=== PATIENT | male | born 1985 | race Caucasian/White ===

== ENCOUNTER 2019-12-04 08:55 | Emergency (ER) | payer OTHER ==
[~2019-12-04] VITALS: Ht 182.9 cm; Wt 68.0 kg
[~2019-12-04 08:55] MED LIST: AMOXICILLIN500 MG PO; CIPRO500 MG PO; CLINDAMYCIN HC300 MG PO; NORCO 5-325 TA1 EACH PO; PYRIDIUM100 MG PO; TRAMADOL HCL50 MG PO
--- OUTSIDE RECORDS SUMMARY | 2019-12-04 08:58 | XMS ---
PreManage Notification: SONDRA EMMANUEL Security Polysomnographic Tech Events No recent Security Events currently on file CRITERIA MET - [facility] CARE PROVIDERS There are no care providers on record at this time. Makeda has no Care Guidelines for this patient. Antonia VISIT COUNT (12 MO.) 2 LORNA Abebe TOTAL 2 NOTE: Visits indicate total known visits. ED/UCC VISIT TRACKING (12 MO.) 12/04/2019 08:56 [facility] [place] TYPE: Emergency COMPLAINT: - POSS ABSCESS 02/23/2019 08:[address] [facility] [place] TYPE: Emergency COMPLAINT: - BILATE KIDNEY PAIN DIAGNOSES: - Dysuria - Urinary tract infection, site not specified - Nicotine dependence, unspecified, uncomplicated INPATIENT VISIT TRACKING (12 MO.) No inpatient visits to display in this time frame [email or web address]
[2019-12-04] MEDS ORDERED: BACTRIM DS TAB1 EACH PO (09:14)
== END 2019-12-04 09:22 | disposition home or self-care (01) ==
LOC: ED 08:55
DX: L02.214 Cutaneous abscess of groin (principal); K40.90 Unilateral inguinal hernia, without obstruction or gangrene, not specified as recurrent; F17.200 Nicotine dependence, unspecified, uncomplicated
CPT/HCPCS: 99283

== ENCOUNTER 2019-12-09 09:02 | Emergency (ER) | payer OTHER ==
[~2019-12-09] VITALS: Ht 182.9 cm; Wt 68.0 kg
--- OUTSIDE RECORDS SUMMARY | ~2019-12-09 | XMS | Encounter Summary ---
Demographics + + + | Address | [address] | | | [place] [address] | + + + | Home Phone | | + + + | Preferred Language | Unknown | + + + | Marital Status | Single | + + + | Religion Affiliation | PRO | + + + | Race | White | + + + | Ethnic Group | Not or | + + + Author + + + | Author | [facility] | + + + | Organization | [facility] | + + + | Address | Unknown | + + + | Phone | Unavailable | + + + Support + + + + + | Name | Relationship | Address | Phone | + + + + + | Candice Recio | FINN | [address] | | | | | [address], [place] | | | | | [address] | | + + + + + | Sergio Almita | FINN | [address] | | | | [address] [place] | | | | | [address] | | + + + + + Care Team Providers + +------+ + | Care Mophead Trimmer And Wrapper Name | Role | Phone | + +------+ + | Floyd Mcgee MD | PCP | | + +------+ + Encounter Details +--------+ + + + + | Date | Type | Department | Care Team | Description | +--------+ + + + + | 12/28/ | Results | [facility] [address] | Tahir Piedra, | | | 2005 | Only | Floor [address] | [place] | | | | | Mailcode: [facility] | | | | | | [facility] [place], [place] | | | | | | [address] | | | | | | [phone] | | | +--------+ + + + + Social History + +-------+ +--------+------+ | Tobacco Use | Types | Packs/Day | Years | Date | | | | | Used | | + +-------+ +--------+------+ | Never Assessed | | | | | + +-------+ +--------+------+ + + + | Sex Assigned at | Date Recorded | | | | + + + | Not on file | | + + + + + + + | Job Start Date | Occupation | Industry | + + + + | Not on file | Not on file | Not on file | + + + + + + + + | Travel History | Travel Start | Travel End | + + + + + + | No recent travel history available. | + + documented as of this encounter Plan of Treatment + +------+--------+ + + | Name | Type | Priori | Associated Diagnoses | Date/Time | | | | ty | | | + +------+--------+ + + | TTE OUTREACH-PEDS | ECG | Routin | | 12/28/2005 4:13 PM | | (RESERVED FOR | | e | | PDT | | OUTREACH SERVICES | | | | | | ONLY) | | | | | + +------+--------+ + + documented as of this encounter Visit Diagnoses Not on filedocumented in this encounter"
--- OUTSIDE RECORDS SUMMARY | ~2019-12-09 | XMS | Encounter Summary ---
Demographics + + + | Address | [address] | | | [place] [address] | + + + | Home Phone | | + + + | Preferred Language | Unknown | + + + | Marital Status | Single | + + + | Gnosticist Affiliation | PRO | + + + | Race | White | + + + | Ethnic Group | Not or | + + + Author + + + | Author | [facility] | + + + | Organization | [facility] | + + + | Address | Unknown | + + + | Phone | Unavailable | + + + Support + + + + + | Name | Relationship | Address | Phone | + + + + + | Candice Recio | FINN | [address] | | | | | [address], [place] | | | | | [address] | | + + + + + | Sergio Almita | FINN | [address] | | | | [address] | | | | | [address] | | + + + + + Care Team Providers + +------+ + | Care Farmworker Cranberry Name | Role | Phone | + +------+ + | Floyd Mcgee MD | PCP | | + +------+ + Encounter Details +--------+ + + + + | Date | Type | Department | Care Team | Description | +--------+ + + + + | 05/20/ | Test Bore Helper | Pediatric | Tahir Piedra, | Congenital Stenosis | | 2006 | | Cardiology at | MD | of Aortic Valve | | | | [place] [address] | | (Primary Dx) | | | | [facility] | | | | | | Pediatric | | | | | | [facility] | | | | | | [place], [place] | | | | | | [address] | | | | | | [phone] | | | +--------+ + + + [...] | | + +------+--------+ + + | TRANSTHORACIC | ECG | Routin | Congenital | 05/27/2007 8:56 AM | | ECHOCARDIOGRAM, PEDS | | e | Stenosis of Aortic | PDT | | | | | Valve | | + +------+--------+ + + documented as of this encounter Visit Diagnoses + + | Diagnosis | + + | Congenital stenosis of aortic valve - Primary | + + documented in this encounter"
--- OUTSIDE RECORDS SUMMARY | ~2019-12-09 | XMS | Encounter Summary ---
Demographics + + + | Address | [address] | | | [place] [address] | + + + | Home Phone | | + + + | Preferred Language | Unknown | + + + | Marital Status | Single | + + + | Lutheran Affiliation | PRO | + + + | Race | White | + + + | Ethnic Group | Not or | + + + Author + + + | Author | [facility] | + + + | Organization | [facility] | + + + | Address | Unknown | + + + | Phone | Unavailable | + + + Support + + + + + | Name | Relationship | Address | Phone | + + + + + | Candice Recio | FINN | [address] | | | | | [address], [place] | | | | | [address] | | + + + + + | Sergio Almita | FINN | [address] | | | | [address] [place] | | | | | [address] | | + + + + + Care Team Providers + +------+ + | Care Special Events Director Name | Role | Phone | + +------+ + | Floyd Mcgee MD | PCP | | + +------+ + Encounter Details +--------+ + + + + | Date | Type | Department | Care Team | Description | +--------+ + + + + | 03/07/ | Office | [facility] | Note, Outpatient | Progress Note | | 1997 | Visit-Trans | MEDICINE | Clinic | | | | cribed | | | | +--------+ + + + [...] + + documented as of this encounter Progress Notes Interface, Handcrew Foreman In - 08/31/2006 3:06 AM PST CLINIC DATE: 03/07/98 [facility] SUBJECTIVE: Tyron is a 12-year-old with aortic stenosis, whom we are seeing after an interval of six months. He is doing quite well at this point in time, and has no cardiovascular symptoms or signs. He is somewhat hyperactive, and takes Ritalin for Attention Deficit Disorder. OBJECTIVE: GENERAL APPEARANCE: On physical examination today, he is alert and in no distress. MEASUREMENTS: He weighs 62.5 pounds, and he is 53 inches tall. VITAL SIGNS: His blood pressure is 97/62, the heart rate 76 per minute, and his arterial saturation by pulse oximeter on room air is 100%. NECK: There is no neck vein distention. CHEST: The chest is clear to auscultation. CARDIOVASCULAR: Palpation of the precordium reveals no overactivity nor thrill. He does have a thrill in the supramanubrial notch. Cardiac auscultation reveals a systolic ejection click, followed by a systolic ejection murmur heard at the third left interspace and into the aortic area. No diastolic murmur is heard. The heart sounds are normal; the second heart sound is normally-split. ABDOMEN: The abdominal examination is negative, without hepatosplenomegaly. No masses or tenderness are palpated. EXTREMITIES: He has good pulses in both upper and lower extremities. These pulses are synchronous and of equal amplitude. No edema is noted. LABORATORY DATA: An echocardiogram was done, and showed similar findings to that of his previous echo. There is a slight increase in the velocity across the aortic valve from the notch view. The gradient previously was 2.5 meters per second and now is three meters per second, which would be calculated to be approximately a 10-millimeter difference from previously, with the pressure gradient now being approximately 35. ASSESSMENT: At this point in time, I would still continue to follow Tyron conservatively. I would not restrict his activities. He should have prophylactic antibiotics when he is at risk of bacteremia to prevent bacterial endocarditis. PLAN: We will plan to see him again in one year's time for follow-up. Tahir Piedra M.D. Professor, Pediatric Cardiology SOFI/yohan cc: ANA CRISTINA COATS MD [address] [place] [address] documented in this encounter Plan of Treatment Not on filedocumented as of this encounter Visit Diagnoses Not on filedocumented in this encounter"
--- OUTSIDE RECORDS SUMMARY | ~2019-12-09 | XMS | Encounter Summary ---
Demographics + + + | Address | [address] | | | [place] [address] | + + + | Home Phone | | + + + | Preferred Language | Unknown | + + + | Marital Status | Single | + + + | Latter Day Affiliation | PRO | + + + | Race | White | + + + | Ethnic Group | Not or | + + + Author + + + | Author | [facility] | + + + | Organization | [facility] | + + + | Address | Unknown | + + + | Phone | Unavailable | + + + Support + + + + + | Name | Relationship | Address | Phone | + + + + + | Cadnice Recio | FINN | [address] | | | | | [address], [place] | | | | | [address] | | + + + + + | Sergio Almita | FINN | [address] | | | | [address] | | | | | [address] | | + + + + + Care Team Providers + +------+ + | Care Machinist Job Setter Name | Role | Phone | + +------+ + | Floyd Rodriguez MD | PCP | | + +------+ + Encounter Details +--------+ + + + + | Date | Type | Department | Care Team | Description | +--------+ + + + + | 06/10/ | Office | General Internal | Note, Outpatient | Progress Note | | 1994 | Visit-Trans | Medicine 3245 | Clinic | | | | mike | Leticia [facility] | | | | | | Mailcode: [id number] | | | | | | Outpatient Clinic | | | | | | [facility], [address] | | | | | | [place], [place] | | | | | | [address] | | | | | | [phone] | | | +--------+ + + + [...] as of this encounter Progress Notes Interface, Brand Analyst In - 11/24/2006 6:25 AM PDT CLINIC DATE: 06/10/95 CLINIC SITE: [place] Ackerman is now almost [age]. We have been following him with the diagnosis mild aortic valve stenosis. When he last had his echocardiogram in 1991, there was only a mild gradient across this of approximately 2.5 m/sec by Doppler flow. In the interim since we saw him, he has continued to get along well and has no cardiac symptoms or signs. On examination, he is alert and in no distress. He weighs 50 pounds and is 47.75 inches tall. Palpation of the precordium reveals no overactivity. There is a faint thrill palpable in the supramanubrial notch. He has good pulses in both upper and lower extremities. On auscultation, he has a systolic ejection click followed by a systolic ejection murmur of Grade II-III intensity. Heart sounds are normally split. There is no accentuation of the pulmonary component. No diastolic murmur is heard. I did not appreciate an S3 or S4. In view of the fact he has not had an echo for three years, I thought it would be appropriate to reassess the measured gradient by Doppler across his valve. I am pleased that there has been no change in this Doppler gradient. It remains at 2.5 m/sec. Under the circumstance, I feel that we can continue to follow Tyron at relatively infrequent intervals and asked to see him again in two years' time. No special precautions are necessary relating to his activity. He should have prophylactic antibiotics when at risk of bacteremia, to prevent bacterial endocarditis. The parents specifically asked about Ritalin and I see no contraindication to use of Ritalin if that is deemed appropriate for his hyperactivity. Tahir Piedra M.D. Professor of Pediatrics Division of Pediatric Cardiology ABISAI/fabiano A cc: ELMIRA RODRIGUEZ MD documented in this encounter Plan of Treatment Not on filedocumented as of this encounter Visit Diagnoses Not on filedocumented in this encounter"
--- OUTSIDE RECORDS SUMMARY | ~2019-12-09 | XMS | Encounter Summary ---
Demographics + + + | Address | [address] | | | [place] [address] | + + + | Home Phone | | + + + | Preferred Language | Unknown | + + + | Marital Status | Single | + + + | Episcopalian Affiliation | PRO | + + + | Race | White | + + + | Ethnic Group | Not or | + + + Author + + + | Author | [facility] | + + + | Organization | [facility] | + + + | Address | Unknown | + + + | Phone | Unavailable | + + + Support + + + + + | Name | Relationship | Address | Phone | + + + + + | Candice Recio | FINN | [address] | | | | | [address], [place] | | | | | [address] | | + + + + + | Sergio Almita | FINN | [address] | | | | [address] | | | | | [address] | | + + + + + Care Team Providers + +------+ + | Care Hospitality Manager Name | Role | Phone | + +------+ + | Latricia Rodriguez MD | PCP | | + +------+ + Encounter Details +--------+ + + + + | Date | Type | Department | Care Team | Description | +--------+ + + + + | 06/09/ | Office | [facility] | Note, Wild Cardio | Progress Note | | 2001 | Visit-Trans | CARDIOLOGY | Clinic | | | | cribed [...] as of this encounter Progress Notes Interface, Supervisor Polishing In - 03/21/2006 3:10 AM PDTCLINIC DATE: 06/09/2002 [facility] SUBJECTIVE: Tyron is now 16. He is followed with the diagnosis of bicuspid aortic valve with aortic stenosis. He has had no cardiac symptoms or signs since we saw him last. Currently, he is on no medications, he no longer takes Ritalin, and the mother feels that, though he has some bad days, his good days are better. OBJECTIVE: On examination today, he is alert, in no distress, without cyanosis. He weighs 113-1/4 lb; he is 65-3/4-inches tall. Blood pressure is 113/70; heart rate is 67 per minute and regular; his arterial saturation by pulse oximeter at room air is 100%. Palpation of the precordium reveals no overactivity nor thrill. There is a faint thrill palpable in the supramanubrial notch. No chest wall deformity is noted. The abdominal examination is negative, without hepatosplenomegaly, masses, or tenderness. He has good pulses in both upper and lower extremities; these pulses are synchronous and of equal amplitude. No edema is noted. No neck vein distention is noted. Venous pressure is estimated to be at about 6 cm of water. The lungs are clear to auscultation. Cardiac auscultation reveals a systolic ejection click, followed by a systolic murmur. No diastolic murmur is heard. No S3 or S4 is heard. The second sounds are normally split and move normally with respiration. An echocardiogram was done and showed no significant change, and his Doppler gradient across the aortic valve was 3.5 m/sec today, and his aortic root dimension at the sinuses is 34 mm. IMPRESSION: I discussed with Tyron and his mother the need to be aware of factors that can reduce coronary artery disease in view of his aortic valve disease, stressing principally no smoking, a lower fat diet, and regular exercise. We will plan to see Tyron in one year for followup. I did not restrict his activities at this time. I recommend that he have prophylactic antibiotics when he is at risk of bacteremia. Tahir Piedra M.D. Professor, Pediatric Cardiology ABISAI/sweetie R: 06/12/2002 cc: LATRICIA RODRIGUEZ MD [address] [facility] [address] [place] [id number] signed by Interface, Supervisor Polishing In at 03/21/2006 3:10 AM PDTdocumented in this encounter Plan of Treatment Not on filedocumented as of this encounter Visit Diagnoses Not on filedocumented in this encounter"
--- OUTSIDE RECORDS SUMMARY | ~2019-12-09 | XMS | Encounter Summary ---
Demographics + + + | Address | [address] | | | [place] [address] | + + + | Home Phone | | + + + | Preferred Language | Unknown | + + + | Marital Status | Single | + + + | Anglican Affiliation | PRO | + + + | Race | White | + + + | Ethnic Group | Not or | + + + Author + + + | Author | [facility] | + + + | Organization | [facility] | + + + | Address | Unknown | + + + | Phone | Unavailable | + + + Support + + + + + | Name | Relationship | Address | Phone | + + + + + | Canidce Recio | FINN | [address] | | | | | [address], [place] | | | | | [address] | | + + + + + | Sergio Almita | FINN | [address] | | | | [address] | | | | | [address] | | + + + + + Care Team Providers + +------+ + | Care Manufacturing Design Engineer Name | Role | Phone | + +------+ + | Latricia Rodriguez MD | PCP | | + +------+ + Encounter Details +--------+ + + + + | Date | Type | Department | Care Team | Description | +--------+ + + + + | 03/06/ | Office | [facility] | Note, Outpatient | Progress Note | | 1998 | Visit-Trans | MEDICINE | Clinic | [...] as of this encounter Progress Notes Interface, Grassland Conservationist In - 07/31/2006 5:02 AM PSTCLINIC DATE: 03/06/1999 [facility] SUBJECTIVE: Tyron is a boy who we have been following with diagnosis of mild aortic valve stenosis. He was last seen a year ago and in the interim has continued to do well. He does take Ritalin for attention deficit disorder and was not too happy about being here today and was rather reticent. OBJECTIVE: He is alert and in no acute distress. He weighs 68 pounds, he is 55 " tall, blood pressure is 106/64, heart rate is 95 per minute and regular. His arterial saturation by pulse oximeter on room air is 100%. Palpation of his precordium reveals no overactivity or thrill. There is a faint thrill in his supramanubrial notch. ABDOMEN: Negative without hepatosplenomegaly, masses or tenderness. He has good pulses in both upper and lower extremities The pulses are synchronous and equal amplitude. No edema is noted, no neck vein distention is noted. LUNGS: Clear to auscultation and percussion. CARDIAC: Cardiac auscultation reveals a systolic ejection click by a grade III systolic ejection murmur. The second sound I thought was single. An echocardiogram was done and essentially showed no change from previous echos with a gradient of 2.5 meters per second or approximately a gradient of 30 mercury. With these findings, I felt we should continue to follow him conservatively and defer any therapeutic procedures. He should have prophylactic antibiotics when he is at risk of bacteremia, reduce the risk of bacterial endocarditis. The only activity that I would restrict him from would be competitive vigorous sports. Certainly golf or tennis might be appropriate for him. At this point, this is not his bent so did not restrict any of his other activities. Tahir Piedra M.D. SOFI/guille cc: LATRICIA RODRIGUEZ MD [address] [facility] [id number] signed by Interface, Grassland Conservationist In at 07/31/2006 5 :02 AM PSTdocumented in this encounter Plan of Treatment Not on filedocumented as of this encounter Visit Diagnoses Not on filedocumented in this encounter
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
--- OUTSIDE RECORDS SUMMARY | ~2019-12-09 | XMS | Encounter Summary ---
Demographics + + + | Address | [address] | | | [place] [address] | + + + | Home Phone | | + + + | Preferred Language | Unknown | + + + | Marital Status | Single | + + + | Hindu Affiliation | PRO | + + + | Race | White | + + + | Ethnic Group | Not or | + + + Author + + + | Author | [facility] | + + + | Organization | [facility] | + + + | Address | Unknown | + + + | Phone | Unavailable | + + + Support + + + + + | Name | Relationship | Address | Phone | + + + + + | Candice Recio | FINN | [address] | | | | | [address], [place] | | | | | [address] | | + + + + + | Sergio Almita | FINN | [address] | | | | [address] | | | | | [address] | | + + + + + Care Team Providers + +------+ + | Care Financial Service Representative Name | Role | Phone | + +------+ + | Floyd Mcgee MD | PCP | | + +------+ + Encounter Details +--------+ + + + + | Date | Type | Department | Care Team | Description | +--------+ + + + + | 05/25/ | Procedure - | UNKNOWN DEPARTMENT | Other, Faculty | ECHO (MAGI or TTE) | | 2002 | | [address] [facility] | [phone] | | | | Transcribed | Domingo Becca | | | | | | [place], [place] | | | | | | [address] | | | +--------+ + + + [...] documented as of this encounter Progress Notes Other, Faculty - 05/25/2003 12:00 AM PDTAssociated Order(s): TRANSTHORACIC ECHOCARDIOGRAM, ADULT [facility] DATE: 05/25/03 [place], [place] MED REC NO: [id number] NAME: TYRON RECIO ECHOCARDIOGRAPHY REPORT BIRTHDATE: [birth year] INDICATION FOR STUDY: AORTIC VALVE STENOSIS UNIT: [place] STUDY NO: [id number] TAPE NO. DIGITAL REQUEST BY: MAKEDA FRASER BP: TECH: CM HT: 172.00 CM WT: 60.30 M-MODE:MM 2-D MEASUREMENT LVID (D)47.0 (S)25.0 %FS 46 LA 37.0 IVS (D)11.5 AO 30.0 LVPW (D) 9.0 AO SALENA 22.0 AO SIN 28.0 AO ASC 28.0 DOPPLER:M/S PW CW MMHG PW CW MMHG LVIT 1.20 RVOT 0.70 LVOT 1.30 MPA 0.80 ASAO AP 2.80 TR 2.70 ASAO SSN 3.70 ASAO RPS 2.60 DSAO 2.00 COLOR FLOW 2D & DOPPLER INTERPRETATION 1. STUDY DONE IN [place] ON 05/25/03 AND READ AT [facility] ON 05/28/03. 2. BICUSPID AORTIC VALVE WITH MODERATE STENOSIS AND MILD REGURGITATION. 3. LEFT VENTRICULAR SIZE NORMAL. HYPERDYNAMIC FRACTIONAL SHORTENING. 4. PHYSIOLOGIC TRICUSPID REGURGITATION. GENESIS GUNDERSON M.D. documented in this encou nter Plan of Treatment Not on filedocumented as of this encounter Procedures + +--------+ + + + | Procedure Name | Priori | Date/Time | Associated Diagnosis | Comments | | | ty | | | | + +--------+ + + + | TRANSTHORACIC | | 05/25/2003 | | Results for this | | ECHOCARDIOGRAM, | | 12:00 AM | | procedure are in the | | ADULT | | PDT | | results section. | + +--------+ + + + documented in this encounter Results TRANSTHORACIC ECHOCARDIOGRAM, ADULT (05/25/2003 12:00 AM PDT) + + | Procedure Note | + + | Other, Faculty - 05/25/2003 12:00 AM [facility] DATE: | | 05/25/03 [place], [place] MED REC NO: [id number] NAME: TYRON RECIO | | ECHOCARDIOGRAPHY REPORT BIRTHDATE: [birth year] INDICATION FOR STUDY: AORTIC VALVE STENOSIS | | UNIT: [place] STUDY NO: [id number] TAPE NO. DIGITAL REQUEST BY: MAKEDA FRASER BP: | | TECH: CM HT: 172.00 CM WT: 60.30 | | M-MODE:MM | | 2-D MEASUREMENT | | LVID (D)47.0 | | (S)25.0 %FS 46 LA 37.0 IVS (D)11.5 AO 30.0 LVPW (D) 9.0 AO SALENA 22.0 AO SIN 28.0 AO ASC | | 28.0 | | DOPPLER:M/S PW CW MMHG PW CW MMHG | | LVIT 1.20 | | RVOT 0.70 LVOT 1.30 MPA 0.80 ASAO AP 2.80 TR 2.70 ASAO SSN 3.70 ASAO RPS 2.60 DSAO | | 2.00 COLOR | | FLOW 2D & DOPPLER INTERPRETATION | | 1. STUDY | | DONE IN [place] ON 05/25/03 AND READ AT [facility] ON 05/28/03. 2. BICUSPID AORTIC VALVE | | WITH MODERATE STENOSIS AND MILD REGURGITATION. 3. LEFT VENTRICULAR SIZE NORMAL. | | HYPERDYNAMIC FRACTIONAL SHORTENING. 4. PHYSIOLOGIC TRICUSPID REGURGITATION. | | GENESIS GUNDERSON M.D. | | | | DOPPLER:M/S PW CW MMHG PW CW MMHG | | | | LVIT 1.20 | | RVOT 0.70 | | LVOT 1.30 | | MPA 0.80 ASAO AP 2.80 | | TR 2.70 ASAO SSN 3.70 | | ASAO RPS 2.60 | | DSAO 2.00 | | | | COLOR FLOW 2D & DOPPLER INTERPRETATION | | | | 1. STUDY DONE IN [place] ON 05/25/03 AND READ AT [facility] ON | | 05/28/03. | | | | 2. BICUSPID AORTIC VALVE WITH MODERATE STENOSIS AND MILD | | REGURGITATION. | | | | 3. LEFT VENTRICULAR SIZE NORMAL. HYPERDYNAMIC FRACTIONAL | | SHORTENING. | | | | 4. PHYSIOLOGIC TRICUSPID REGURGITATION. | | | | | | | | GENESIS GUNDERSON M.D. | | | | | | | + + documented in this encounter Visit Diagnoses Not on filedocumented in this encounter"
--- OUTSIDE RECORDS SUMMARY | ~2019-12-09 | XMS | Encounter Summary ---
Demographics + + + | Address | [address] | | | [place] [address] | + + + | Home Phone | | + + + | Preferred Language | Unknown | + + + | Marital Status | Single | + + + | Rastafari Affiliation | PRO | + + + | Race | White | + + + | Ethnic Group | Not or | + + + Author + + + | Author | [facility] | + + + | Organization | [facility] | + + + | Address | Unknown | + + + | Phone | Unavailable | + + + Support + + + + + | Name | Relationship | Address | Phone | + + + + + | Candice Recio | FINN | [address] | | | | | [address], [place] | | | | | [address] | | + + + + + | Sergio Almita | ECON | [address] | | | | [address], [place] | | | | | [address] | | + + + + + Care Team Providers + +------+ + | Care It Help Desk Technician Name | Role | Phone | [...] | MD | | | | | [place] [address] | | | | | | [address] | | | | | | Pediatric | | | | | | [facility] | | | | | | [place], [place] | | | | | | [address] | | | | | | [phone] | | | +--------+ + + + [...]
--- OUTSIDE RECORDS SUMMARY | ~2019-12-09 | XMS | Encounter Summary ---
Demographics + + + | Address | [address] | | | [place] [address] | + + + | Home Phone | | + + + | Preferred Language | Unknown | + + + | Marital Status | Single | + + + | Quaker Affiliation | PRO | + + + | Race | White | + + + | Ethnic Group | Not or | + + + Author + + + | Author | [facility] | + + + | Organization | [facility] | + + + | Address | Unknown | + + + | Phone | Unavailable | + + + Support + + + + + | Name | Relationship | Address | Phone | + + + + + | Candice Recio | FINN | [address] | | | | | [address], [place] | | | | | [address] | | + + + + + | Sergio Almita | FINN | [address] | | | | [address] | | | | | [address] | | + + + + + Care Team Providers + +------+ + | Care Book Cutter Name | Role | Phone | + +------+ + | Floyd Mcgee MD | PCP | | + +------+ + Encounter Details +--------+---------+ + + + | Date | Type | Department | Care Team | Description | +--------+---------+ + + + | 05/09/ | Office | Neurosurgery [address] | Jean Carlos Payne MD | Concussion (Primary | | 2007 | Visit | [address] | | Dx) | | | | Physician's | | | | | | [address], [address] floor | | | | | | [place], [place] | | | | | | [address] | | | | | | [phone] | | | +--------+---------+ + + + [...] + + + | Blood Pressure | - | - | | + + + + + | Pulse | - | - | | + + + + + | Temperature | - | - | | + + + + + | Respiratory Rate | - | - | | + + + + + | Oxygen Saturation | - | - | | + + + + + | Inhaled Oxygen | - | - | | | Concentration | | | | + + + + + | Weight | 56.7 kg (125 lb) | 05/09/2008 12:12 PM | | | | | PDT | | + + + + + | Height | - | - | | + + + + + | Body Mass Index | 17.43 | 06/02/2007 2:18 PM | | | | | PDT | | + + + + + documented in this encounter Progress Notes Jean Carlos Payne - 05/09/2008 2:49 PM PDT I saw and evaluated the patient. I agree with the findings and the plan of care as lu maier in the resident s note. Encounter Diagnoses Code Name Primary? 850.9H Concussion Yes Jean Carlos Payne MD Physician & Surgeon Department of Neurological Surgery [facility] & [address], [address] [address] Pager: [phone] Sheela Estrada, Roly Arreola - 05/09 1:12 PM Saeid Recio returns to clinic for follow up after a traumatic fracture of his frontal sinus and pneumocephalus. He states that he continues to have headaches and se nsitivity to bright lights and loud noises. He denies any rhinorrhea or otorhea. He has ratliff d once epsiode of nausea/vomiting. PE: Dulled affect Speech normal O x 3 No rhinorrhea with valsalva, no otorhea Moderate swelling at left brow Tender to touch no erythema Neck supple and nontender topalpation, FROM A/P: Post concussive syndrome. No CSF leak, No evidence for meningitis. Patient was ins tructed to follow up in 6 weeks. His symptoms should improve pver time. If he develops high fevers, neck rigidity, worsening N/V he should follow up sooner. He was instructed to coord inate pain mamagement through his primary care physician. A one-time prescription for oxyco done was written. Patient had an audiogram done today which he should follow up with an ENT specialist. Sarika ented in this encounter Plan of Treatment Not on filedocumented as of this encounter Visit Diagnoses + + | Diagnosis | + + | Concussion - Primary Concussion, unspecified | + + documented in this encounter"
--- OUTSIDE RECORDS SUMMARY | ~2019-12-09 | XMS | Clinical Summary ---
Demographics + + + | Address | [address] | | | [place] [address] | + + + | Home Phone [...] Author + + + | Author | [facility] | + + + | Organization | [facility] | + + + | Address | Unknown | + + + | Phone | Unavailable | + + + Support + + + + + | Name | Relationship | Address | Phone | + + + + + | Candice Recio | ECON | [address] | | | | [address], [place] | | | | | [address] | | + + + + + | Sergio Recio | ECON | [address] + | | | | [address], [place] | | | | | [address] | | + + + + + Care Team Providers + +------+ + | Care Nail Professional Name | Role | Phone | + +------+ + | Floyd Mcgee MD | PCP | | + +------+ + Source Comments [facility] is fully live on both [facility] and [facility] In[facility] Allergies + + + + + + | Active Allergy | Reactions | Severity | Noted | Comments | | | | | Date | | + + + + + + | No Known Drug | | | 04/26/20 | | | Allergies | | | 08 | | + + + + + + Medications + + + +---------+------+------+-------+ | Medication | Sig | Dispensed | Refills | Star | End | Statu | | | | | | t | Date | s | | | | | | Date | | | + + + +---------+------+------+-------+ | TEGRETOL ORAL | None Entered | | 0 | | | Activ | | | | | | | | e | + + + +---------+------+------+-------+ | duloxetine | Take 30 mg by mouth | | 0 | | | Activ | | (CYMBALTA) 30 mg | once daily. Take one | | | | | e | | Oral Capsule, | tablet by mouth one | | | | | | | Delayed | time daily | | | | | | | Release(E.C.) | | | | | | | + + + +---------+------+------+-------+ | valacyclovir | Take 1000 mg by | | 0 | | | Activ | | (VALTREX) 500 mg | mouth two times | | | | | e | | Oral Tablet | daily. Two tablets | | | | | | | | twice daily | | | | | | + + + +---------+------+------+-------+ Active Problems + + + | Problem | Noted Date | + + + | Congenital insufficiency of aortic valve | 05/27/2007 | + + + | Congenital stenosis of aortic valve | 05/20/2007 | + + + Social History + +-------+ [...] recent travel history available. | + + Last Filed Vital Signs + + + + + | Vital Sign | Reading | Time Taken | Comments | + + + + + | Blood Pressure | 155/81 | 04/27/2008 11:47 AM | | | | | PDT | | + + + + + | Pulse | 74 | 04/27/2008 11:47 AM | | | | | PDT | | + + + + + | Temperature | 37.2 C (99 F) | 04/27/2008 11:47 AM | | | | | PDT | | + + + + + | Respiratory Rate | 12 | 04/27/2008 11:47 AM | | | | | PDT | | + + + + + | Oxygen Saturation | 100% | 04/27/2008 11:47 AM | | | | | PDT | [...] | | + + + + + Plan of Treatment + + + + + | Health Maintenance | Due Date | Last Done | Comments | + + + + + | Influenza (Flu) | | | | | vaccination (#1) | 9 | | | + + + + + | Pneumococcal | Aged Out | | No longer eligible | | vaccination | | | based on patient's | | | | | age to complete this | | | | | topic | + + + + + Results Not on filefrom Last 3 Months Advance Directives + + + + + | Type | Date Recorded | Patient | Explanation | | | | Retail Advisor | | + + + + + | Advance | | | | | Directives and | | | | | Living Will | | | | + + + + + | Power of | | | | | Child Care Director | | | | + + + + + + + + + + | Code Status | Date | Date | Comments | | | Activated | Inactivated | | + + + + + | Full Code | 04/26/2008 | 04/27/2008 | | | | 3:03 AM | 6:55 PM | | + + + + +
--- OUTSIDE RECORDS SUMMARY | ~2019-12-09 | XMS | Encounter Summary ---
Demographics + + + | Address | [address] | | | [place] [address] | + + + | Home Phone | | + + + | Preferred Language | Unknown | + + + | Marital Status | Single | + + + | Oriental Orthodox Affiliation | PRO | + + + [...] [address], [place] | | | | | [address] | | + + + + + | Sergio Almita | FINN | [address] | | | | [address] | | | | | [address] | | + + + + + Care Team Providers + +------+ + | Care Sausage Cutter Name | Role | Phone | + +------+ + | Floyd Mcgee MD | PCP | | + +------+ + Encounter Details +--------+ + + + + | Date | Type | Department | Care Team | Description | +--------+ + + + + | 03/31/ | Results | [facility] | [place], | | | 2005 | Only | Floor [address] | [place] | | | | | Mailcode: [facility] | | | | | | [facility] [place], [place] | | | | | | [address] | | | | | | [phone] | | | +--------+ + + + [...] | + +------+--------+ + + | TTE (TRANSTHORACIC | ECG | Routin | | 03/31/2006 1:36 PM | | ECHO)-PEDS | | e | | PDT | + +------+--------+ + + | TTE OUTREACH-PEDS | ECG | Routin | | 04/02/2006 8:17 AM | | (RESERVED FOR | | e | | PDT | | OUTREACH SERVICES | | | | | | ONLY) | | | | | + +------+--------+ + + | TTE (TRANSTHORACIC | ECG | Routin | | 05/25/2006 11:17 AM | | ECHO)-PEDS | | e | | PDT | + +------+--------+ + + documented as of this encounter Visit Diagnoses Not on filedocumented in this encounter"
--- OUTSIDE RECORDS SUMMARY | ~2019-12-09 | XMS | Encounter Summary ---
Demographics + + + | Address | [address] | | | [place] [address] | + + + | Home Phone [...] + + + | Author | [facility] | + + + | Organization | [facility] | + + + | Address | Unknown | + + + | Phone | Unavailable | + + + Support + + + + + | Name | Relationship | Address | Phone | + + + + + | Candice Recio | FINN | [address] | | | | | [address], [place] | | | | | [address] | | + + + + + | Sergio Ajvictor m | FINN | [address] | | | | [address] | | | | | [address] | | + + + + + Care Team Providers + +------+ + | Care Signing Teacher Name | Role | Phone | [...] Floor | | 2007 | Visit | [place]/Ophthalmol | | (Blow-Out), Closed | | | | ogy at [facility] [address] | | Fracture (Primary | | | | [address] [facility] | | Dx) | | | | Health and Healing | | | | | | Building | | | | | | Floor [place], [place] | | | | | | [address] | | | | | | [phone] | | | +--------+---------+ + + + [...] year old male No occupation listed. from [place] : Patient presents with: Eye examination - [...] another 1-2 months that he see local lead designer for refraction and checkup. Dale Miner MD, 05/17/2008 documented in this enco unter Plan of Treatment Not on filedocumented as of this encounter Visit Diagnoses + + | Diagnosis | + + | Orbital floor (blow-out), closed fracture - Primary | + + documented in this encounter"
--- OUTSIDE RECORDS SUMMARY | ~2019-12-09 | XMS | Encounter Summary ---
Demographics + + + | Address | [address] | | | [place] [address] | + + + | Home Phone | | + + + | Preferred Language | Unknown | + + + | Marital Status | Single | + + + | Sabianism Affiliation | PRO | + + + | Race | White | + + + | Ethnic Group | Not or | + + + Author + + + | Organization | Unknown | + + + | Address | Unknown | + + + | Phone | Unavailable | + + + Support + + + + + | Name | Relationship | Address | Phone | + + + + + | Candice Recio | ECON | [address] | | | | [address], [place] | | | | | [address] | | + + + + + | Sergio Recio | ECON | [address] | | | | [address], [place] | | | | | [address] | | + + + + + Care Team Providers + +------+ + | Care Medical Concierge Name | Role | Phone | + +------+ + | Floyd Mcgee MD | PCP | | + +------+ + Encounter Details +--------+ + + + + | Date | Type | Department | Care Team | Description | +--------+ + + + + | 12/08/ | Procedure - | | Treadmill, Routine | Treadmill | | 2000 | | | | | | | Transcribed | | | | +--------+ + + [...]
--- OUTSIDE RECORDS SUMMARY | ~2019-12-09 | XMS | Encounter Summary ---
Demographics + + + | Address | [address] | | | [place] [address] | + + + | Home Phone | | + + + | Preferred Language | Unknown | + + + | Marital Status | Single | + + + | Roman Catholic Affiliation | PRO | + + + | Race | White | + + + | Ethnic Group | Not or | + + + Author + + + | Author | [facility] | + + + | Organization | [facility] | + + + | Address | Unknown | + + + | Phone | Unavailable | + + + Support + + + + + | Name | Relationship | Address | Phone | + + + + + | Candice Recio | FINN | [address] | | | | | [address], [place] | | | | | [address] | | + + + + + | Sergio Almita | FNIN | [address] | | | | [address] | | | | | [address] | | + + + + + Care Team Providers + +------+ + | Care Utilization Management Nurse Name | Role | Phone | + +------+ + | Floyd Mcgee MD | PCP | | + +------+ + Encounter Details +--------+ + + + + | Date | Type | Department | Care Team | Description | +--------+ + + + + | 06/09/ | Procedure - | UNKNOWN DEPARTMENT | Other, Faculty | ECHO (MAGI or TTE) | | 2001 | | [address] [facility] | [phone] | | | | Transcribed | [address] | | | | | | [place], [place] | | | | | | [address] | | | +--------+ + + + [...] this encounter Progress Notes Other, Faculty - 06/09/2002 12:00 AM PDTAssociated Order(s): TRANSTHORACIC ECHOCARDIOGRAM, ADULT [facility] DATE: 06/09/02 [place] MED REC NO: [id number] NAME: DIPAKMarcellusTYRON ECHOCARDIOGRAPHY REPORT BIRTHDATE: [birth year] INDICATION FOR STUDY: AORTIC STENOSIS UNIT: [place] STUDY NO: [id number] TAPE NO. [id number] REQUEST BY: MAKEDA FRASER FRAME NO. [id number]:[id number] TECH: CM M-MODE:MM 2-D MEASUREMENT LVID (D)50.5 (S)26.0 %FS 48 LA 30.0 IVS (D) 9.0 AO 28.0 LVPW (D) 6.5 AO SALENA 22.5 AO SIN 26.0 AO ASC 35.0 DOPPLER:M/S PW CW MMHG PW CW MMHG RVIT 0.60 LVIT 1.20 RVOT 1.00 LVOT 1.00 MPA 1.00 ASAO AP 2.50 TR 2.20 ASAO SSN 3.40 DSAO 1.50 COLOR FLOW 2D & DOPPLER INTERPRETATION PORTABLE ROAD STUDY. 1. BICUSPID AORTIC VALVE. 2. MILD TO MODERATE AORTIC STENOSIS; MILD AORTIC INSUFFICIENCY. 3. MILD LEFT VENTRICULAR ENLARGEMENT WITH HYPERDYNAMIC SYSTOLIC FUNCTION. EVERTON LEROY MD documented in this encou nter Plan of Treatment Not on filedocumented as of this encounter Procedures + +--------+ + + + | Procedure Name | Priori | Date/Time | Associated Diagnosis | Comments | | | ty | | | | + +--------+ + + + | TRANSTHORACIC | | 06/09/2002 | | Results for this | | ECHOCARDIOGRAM, | | 12:00 AM | | procedure are in the | | ADULT | | PDT | | results section. | + +--------+ + + + documented in this encounter Results TRANSTHORACIC ECHOCARDIOGRAM, ADULT (06/09/2002 12:00 AM PDT) + + | Procedure Note | + + | Other, Faculty - 06/09/2002 12:00 AM PDT [facility] DATE: | | 06/09/02 [place] MED REC NO: [id number] NAME: TYRON RECIO | | ECHOCARDIOGRAPHY REPORT BIRTHDATE: [birth year] INDICATION FOR STUDY: AORTIC STENOSIS | | UNIT: [place] STUDY NO: [id number] TAPE NO. [id number] REQUEST BY: MAKEDA FRASER FRAME NO. | | [id number] TECH: CM | | M-MODE:MM | | 2-D MEASUREMENT | | LVID (D)50.5 | | (S)26.0 %FS 48 LA 30.0 IVS (D) 9.0 AO 28.0 LVPW (D) 6.5 AO SALENA 22.5 AO SIN 26.0 AO ASC | | 35.0 | | DOPPLER:M/S PW CW MMHG PW CW MMHG | | RVIT 0.60 | | LVIT 1.20 RVOT 1.00 LVOT 1.00 MPA 1.00 ASAO AP 2.50 TR 2.20 ASAO SSN 3.40 DSAO 1.50 | | COLOR FLOW | | 2D & DOPPLER INTERPRETATION | | PORTABLE | | ROAD STUDY. 1. BICUSPID AORTIC VALVE. 2. MILD TO MODERATE AORTIC STENOSIS; MILD AORTIC | | INSUFFICIENCY. 3. MILD LEFT VENTRICULAR ENLARGEMENT WITH HYPERDYNAMIC SYSTOLIC | | FUNCTION. EVERTON LEROY MD | | AO SALENA 22.5 AO SIN 26.0 AO ASC 35.0 | | | | DOPPLER:M/S PW CW MMHG PW CW MMHG | | | | RVIT 0.60 LVIT 1.20 | | RVOT 1.00 | | LVOT 1.00 | | MPA 1.00 ASAO AP 2.50 | | TR 2.20 ASAO SSN 3.40 | | DSAO 1.50 | | | | COLOR FLOW 2D & DOPPLER INTERPRETATION | | | | PORTABLE ROAD STUDY. | | 1. BICUSPID AORTIC VALVE. | | | | 2. MILD TO MODERATE AORTIC STENOSIS; MILD AORTIC INSUFFICIENCY. | | | | 3. MILD LEFT VENTRICULAR ENLARGEMENT WITH HYPERDYNAMIC SYSTOLIC | | FUNCTION. | | | | | | | | EVERTON LEROY MD | | | | | | | + + documented in this encounter Visit Diagnoses Not on filedocumented in this encounter"
--- OUTSIDE RECORDS SUMMARY | ~2019-12-09 | XMS | Clinical Summary ---
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
--- OUTSIDE RECORDS SUMMARY | ~2019-12-09 | XMS | Encounter Summary ---
Demographics + + + | Address | [address] | | | [place] [address] | + + + | Home Phone | | + + + | Preferred Language | Unknown | + + + | Marital Status | Single | + + + | Synagogue Affiliation | PRO | + + + | Race | White | + + + | Ethnic Group | Not or | + + + Author + + + | Author | [facility] | + + + | Organization | [facility] | + + + | Address | Unknown | + + + | Phone | Unavailable | + + + Support + + + + + | Name | Relationship | Address | Phone | + + + + + | Candice Recio | FINN | [address] | | | | | [address], [place] | | | | | [address] | | + + + + + | Sergio Almita | FINN | [address] | | | | [address] | | | | | [address] | | + + + + + Care Team Providers + +------+ + | Care Fashion Styling Intern Name | Role | Phone | + [...] [id number] | | | | | | [place], [place] | | | | | | [address] | | | | | | [phone] | | | +--------+ + + + [...]
--- OUTSIDE RECORDS SUMMARY | ~2019-12-09 | XMS | Encounter Summary ---
Demographics + + + | Address | [address] | | | [place] [address] | + + + | Home Phone [...] Author + + + | Author | [facility] | + + + | Organization | [facility] | + + + | Address | Unknown | + + + | Phone | Unavailable | + + + Support + + + + + | Name | Relationship | Address | Phone | + + + + + | Candice Recio | FINN | [address] | | | | | [address], [place] | | | | | [address] | | + + + + + | Sergio Almita | FINN | [address] | | | | [address] | | | | | [address] | | + + + + + Care Team Providers + +------+ + | Care Account Support Analyst Name | Role | Phone | + +------+ + | Floyd Mcgee MD | PCP | | + +------+ + Encounter Details +--------+ + + + + | Date | Type | Department | Care Team | Description | +--------+ + + + + | 12/12/ | Ancillary | Registration [id number] | Tah[address]iedra, | | | 2004 | Registratio | [address] | | | | | kameron | Austyn Mailcode: [id number] | | | | | | [place], [place] | | | | | | [address] | | | | | | [phone] | | | +--------+ + + + [...]
--- OUTSIDE RECORDS SUMMARY | ~2019-12-09 | XMS | Encounter Summary ---
Demographics + + + | Address | [address] | | | [place] [address] | + + + | Home Phone | | + + + | Preferred Language | Unknown | + + + | Marital Status | Single | + + + | Zoroastrian Affiliation | PRO | + + + | Race | White | + + + | Ethnic Group | Not or | + + + Author + + + | Author | [facility] | + + + | Organization | [facility] | + + + | Address | Unknown | + + + | Phone | Unavailable | + + + Support + + + + + | Name | Relationship | Address | Phone | + + + + + | Candice Recio | FINN | [address] | | | | | [address], [place] | | | | | [address] | | + + + + + | Sergio Almita | FINN | [address] | | | | [address] | | | | | [address] | | + + + + + Care Team Providers + +------+ + | Care Dance Artist Name | Role | Phone | + [...] as of this encounter Progress Notes Interface, Hydraulic Oil Tool Operator In - 03/21/2006 3:10 AM PDTCLINIC DATE: 06/09/2002 [facility] SUBJECTIVE: Tyron is [...] R: 06/12/2002 cc: LATRICIA RODRIGUEZ MD [address] [facility] [address] [place] [id number] signed by Interface, Hydraulic Oil Tool Operator In at 03/21/2006 3:10 AM PDTdocumented in this encounter Plan of Treatment Not on filedocumented as of this encounter Visit Diagnoses Not on filedocumented in this encounter"
--- OUTSIDE RECORDS SUMMARY | ~2019-12-09 | XMS | Encounter Summary ---
Demographics + + + | Address | [address] | | | [place] [address] | + + + | Home Phone | | + + + | Preferred Language | Unknown | + + + | Marital Status | Single | + + + | Worship Affiliation | PRO | + + + [...] [address], [place] | | | | | [address] | | + + + + + | Sergio Almita | FINN | [address] | | | | [address] | | | | | [address] | | + + + + + Care Team Providers + +------+ + | Care Ocean Freight Forwarder Name | Role | Phone | + [...] | MD | | | | | [place] [address] | | | | | | [address] | | | | | | Pediatric | | | | | | [facility]s | | | | | | [place], [place] | | | | | | [address] | | | | | | [phone] | | | +--------+ + + + [...]
--- OUTSIDE RECORDS SUMMARY | ~2019-12-09 | XMS | Encounter Summary ---
Demographics + + + | Address | [address] | | | [place] [address] | + + + | Home Phone [...] + + + | Author | [facility] | + + + | Organization | [facility] | + + + | Address | Unknown | + + + | Phone | Unavailable | + + + Support + + + + + | Name | Relationship | Address | Phone | + + + + + | Candice Recio | FINN | [address] | | | | | [address], [place] | | | | | [address] | | + + + + + | Sergio Almita | FINN | [address] | | | | [address] | | | | | [address] | | + + + + + Care Team Providers + +------+ + | Care Ncaa Compliance Internship Name | Role | Phone | + +------+ + | Floyd Mcgee MD | PCP | | + +------+ + Encounter Details +--------+ + + + + | Date | Type | Department | Care Team | Description | +--------+ + + + + | 03/31/ | Results | [facility] | Tahir Piedra, | | | 2005 | Only | Floor [address] | [place] | | | | | Mailcode: [facility] | | | | | | [facility] [place], [place] | | | | | | [address] | | | | | | [phone] | | | +--------+ + + + [...]
--- OUTSIDE RECORDS SUMMARY | ~2019-12-09 | XMS | Encounter Summary ---
Demographics + + + | Address | [address] | | | [place] [address] | + + + | Home Phone | | + + + | Preferred Language | Unknown | + + + | Marital Status | Single | + + + | Nondenominational Affiliation | PRO | + + + [...] [address], [place] | | | | | [address] | | + + + + + | Sergio Almita | FINN | [address] | | | | [address] | | | | | [address] | | + + + + + Care Team Providers + +------+ + | Care Corporate Director Talent Assessment Name | Role | Phone | + +------+ + | Floyd Rodriguez MD | PCP | | + +------+ + Encounter Details +--------+ + + + + | Date | Type | Department | Care Team | Description | +--------+ + + + + | 12/16/ | Transcribed | Allergy Clinic at | Dictation, Other | Transcribed | | 1995 | | [facility] [address] | | | | | | [address] | | | | | | [address] | | | | | | [facility], 7th floor | | | | | | [place], [place] | | | | | | [address] | | | | | | [phone] | | | +--------+ + + + [...] as of this encounter Progress Notes Interface, Bone Glue Maker In - 11/12/2006 3:11 AM PDT [address], [address] [address] [phone] [facility] Ped[facility] December 17, 1995 SHERRIE RODRIGUEZ MD [address] [place] [address] [address] [place] [address] RE:Tyron Recio MR#:[id number] : [id number] Dear Doctor Rodriguez: I have no problems with your prescribing Imipramine for Tyron. His cardiac abnormality is minor, so for most purposes he can be treated as if he has no cardiac problem. Thanks for taking time to ask. Very truly yours, Tahir Piedra M.D. Professor of Pediatrics Division of Pediatric Cardiology ABISAI/fabiano cc: documented in this encounter Plan of Treatment Not on filedocumented as of this encounter Visit Diagnoses Not on filedocumented in this encounter"
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
--- OUTSIDE RECORDS SUMMARY | ~2019-12-09 | XMS | Encounter Summary ---
Demographics + + + | Address | [address] | | | [place] [address] | + + + | Home Phone [...] [address], [place] | | | | | [address] | | + + + + + | Sergio Almita | FINN | [address] | | | | [address] | | | | | [address] | | + + + + + Care Team Providers + +------+ + | Care Tube Worker Name | Role | Phone | + [...] as of this encounter Progress Notes Interface, Proration Clerk In - 01/28/2006 3:07 AM PDTClinic Date: 05/25/2003 PEDIATRIC CARDIOLOGY Clinic Site: [facility] Tyron is a [...] Professor of Pediatrics Division of Pediatric Cardiology [facility] ABISAI/josseline A [id number] cc: Floyd Mcgee M.D. [address] [facility] 10 [place], [place] [email or web address] signed by Interface, Proration Clerk In at 01/28/2006 3:0 7 AM PDTdocumented in this encounter Plan of Treatment Not on filedocumented as of this encounter Visit Diagnoses Not on filedocumented in this encounter"
--- OUTSIDE RECORDS SUMMARY | ~2019-12-09 | XMS | Encounter Summary ---
Demographics + + + | Address | [address] | | | [place] [address] | + + + | Home Phone [...] Author + + + | Author | [facility] | + + + | Organization | [facility] | + + + | Address | Unknown | + + + | Phone | Unavailable | + + + Support + + + + + | Name | Relationship | Address | Phone | + + + + + | Candice Recio | FINN | [address] | | | | | [address], [place] | | | | | [address] | | + + + + + | Sergio Almita | FINN | [address] | | | | [address] | | | | | [address] | | + + + + + Care Team Providers + +------+ + | Care Insurance Administrative Assistant Name | Role | Phone | + +------+ + | Floyd Mcgee MD | PCP | | + +------+ + Encounter Details +--------+ + + + + | Date | Type | Department | Care Team | Description | +--------+ + + + + | 12/28/ | Results | [facility] | Tahir Piedra, | | | 2005 | Only | Floor [address] | [place] | | | | | Mailcode: [facility] | | | | | | [facility] [place], [place] | | | | | | [address] | | | | | | [phone] | | | +--------+ + + + [...]
--- OUTSIDE RECORDS SUMMARY | ~2019-12-09 | XMS | Clinical Summary ---
Demographics + + + | Address | [address] | | | [place] [address] | + + + | Home Phone | | + + + | Preferred Language | Unknown | + + + | Marital Status | Single | + + + | Temple Affiliation | Unknown | + + + | Race | Unknown | + + + | Ethnic Group | Unknown | + + + Author + + + | Author | [facility] | | | [facility] [place] | + + + | Organization | [facility] | | | [facility] [place] | + + + | Address | Unknown | + + + | Phone | Unavailable | + + + Support + + +---------+ + | Name | Relationship | Address | Phone | + + +---------+ + | Candice Recio | ECON | Unknown | | + + +---------+ + Care Team Providers + +------+ + | Care Tire Building Supervisor Name | Role | Phone | + +------+ + | Tomas Marino MD | PCP | | + +------+ + Allergies Not on File Medications Not on file Active Problems Not on file Social History + +-------+ +--------+------+ | Tobacco [...] | + + Last Filed Vital Signs Not on file Plan of Treatment +--------+---------+ + + + | Date | Type | Specialty | Care Team | Description | +--------+---------+ + + + | 12/11/ | Office | Cardiology | Ever Carbajal, | | | 2019 | Visit | | [address] | | | | | | [place], | | | | | | [place] [address] | | | | | | [phone] | | | | | | | | +--------+---------+ + + + + + + + + | Health Maintenance | Due Date | Last Done | Comments | + + + + + | Vaccine: | | | | | Dtap/Tdap/Td (1 - | 8 | | | | Tdap) | | | | + + + + + | Vaccine: Influenza | | | | | (Season Ended) | 0 | | | + + + + + Results Not on filefrom Last 3 Months Insurance + +--------+ +--------+ +---------+--------+ | Payer | Benefi | Subscriber | Effect | Phone | Address | Type | | | t Plan | ID | cornelius | | | | | | / | | Dates | | | | | | Group | | | | | | + +--------+ +--------+ +---------+--------+ | [employer] | [employer] | [id number] | 02/14/20 | [phone] | | Medica | | MEDICAID HMO | HEALTH | | 14-Pre | 1 | | id | | | MDCD | | sent | | | | | | [place] | | | | | | + +--------+ +--------+ +---------+--------+ + +--------+ +--------+ + + | Guarantor Name | Accoun | Relation to | Date | Phone | Billing Address | | | t Type | Patient | of | | | | | | | | | | + +--------+ +--------+ + + | Tyron Recio E | Person | Self [birth year] | [address] | | | al/Fam | | 1985 | [phone] | [address] [place], | | | [place] | | | [address] (Home) | [place] [address] | + +--------+ +--------+ + + Advance Directives + + + + + | Type | Date Recorded | Patient | Explanation | | | | Owner Professional Engineer | | + + + + + | Power of | | | | | Gas Meter Installer | | | | + + + + + | Advance | | | | | Directive | | | | + + + + +"
--- OUTSIDE RECORDS SUMMARY | ~2019-12-09 | XMS | Encounter Summary ---
Demographics + + + | Address | [address] | | | [place] [address] | + + + | Home Phone [...] [address], [place] | | | | | [address] | | + + + + + | Sergio Recio | ECON | [address] | | | | [address], [place] | | | | | [address] | | + + + + + Care Team Providers + +------+ + | Care Warehouse Supervisor 3Rd Shift Name | Role | Phone | + +------+ + PCP | Unavailable | + +------+ + Encounter Details +--------+ + + + + | Date | Type | Department | Care Team | Description | +--------+ + + + + | 12/12/ | Office | | Note, Outpatient | Progress Note | | 2005 | Visit-Trans | | Clinic | | [...] as of this encounter Progress Notes Interface, Network Support In - 03/15/2005 11:11 AM PDT [id number] [facility]: [facility] Tyron is now almost 19. He is a young man who we have been following with bicuspid aortic valve with mild aortic stenosis and mild to minimal aortic valve regurgitation. In the interim since we saw him last, he has continued to get along well without cardiac symptoms or signs. Physical Examination: General: On examination today, he is no distress. He is alert without cyanosis. Vital Signs: He weighs 134 pounds. He is 69-1/2 inches tall. Respiratory rate was 14 per minute and regular. Blood pressure taken today was 137/81. Heart rate is 65 per minute and regular. Arterial saturation by pulse oximeter room air is 98%. Palpation of precordium reveals no overactivity nor a thrill. There is a faint thrill palpable in the supramanubrial notch. Abdomen: Without hepatosplenomegaly, masses, or tenderness. Extremities: He has good pulses in both upper and lower extremities. No edema is noted. No neck vein distention is noted. Lungs: Clear to auscultation. Cardiac auscultation reveals a systolic ejection click followed by a grade 2 systolic ejection murmur heard best in the second right interspace. I did not hear any diastolic murmurs nor did I hear an S3 or S4. Second heart sound was normally split. Diagnostic: An echocardiogram was done and essentially showed no difference from his previous echo with mild stenosis and mild dilation of his proximal aorta. I spent a good deal of time talking to Tyron relating to the need for him to have continued followup as he would grow older and perhaps leave the area. Also, I talked to him about coronary artery disease risk reduction, low-fat diet, regular exercise, and no smoking. (Currently, he states that he smokes about 2 cigarettes a day.) Plan: I will plan to see Tyron again next year with an echo. He should have prophylactic antibiotics when is at risk of bacteremia to reduce the risk of bacterial endocarditis. I did not restrict his activities at this time. Tahir Piedra M.D. Professor of Pediatrics Division of Pediatric Cardiology [facility] / [id number] / [id number] / [id number] / cc: Floyd Mcgee M.D. [address] [id number] Electronically signed by Tahir Piedra 12-25-2004 07:48:36 AM documented i n this encounter Plan of Treatment Not on filedocumented as of this encounter Visit Diagnoses Not on filedocumented in this encounter"
--- OUTSIDE RECORDS SUMMARY | ~2019-12-09 | XMS | Encounter Summary ---
Demographics + + + | Address | [address] | | | [place] [address] | + + + | Home Phone | | + + + | Preferred Language | Unknown | + + + | Marital Status | Single | + + + | Bahai Affiliation | PRO | + + + [...] [address], [place] | | | | | [address] | | + + + + + | Sergio Almita | FINN | [address] | | | | [address], [place] | | | | | [address] | | + + + + + Care Team Providers + +------+ + | Care Serging Machine Operator Automatic Name | Role | Phone | + [...] | | | | | | Austyn [facility] | | | | | | | [facility] | | | | | | | [place], [place] | | | | | | | [address] | | | | | | | Phone: | | | | | | | [phone] | +--------+--------+ + + + + Encounter Details +--------+ + + + + | Date | Type | Department | Care Team | Description | +--------+ + + + + | 04/26/ | Hospital | [facility] [address] | Rober Stoddard, | | | 2007 - | Encounter | [address] | | | | | | [id number] [facility] | | | | 04/27/ | | [facility], | | | | 2007 | | [place] [address] | | | +--------+ + + + [...] onto con crete while at a rodeo [employer] ETOH on board. Patient reportedly had LOC, unknown how long. He was taken to a hospital in [place] where a L brow lac was repaired [...] - as scheduled. Other: NSG, Opthalmology at [facility] or OSH or clinic, and Fascial [...] He was taken to a hospital in [place] where a L brow lac was repaired [...] - as scheduled. Other: NSG, Opthalmology at [facility] or OS or clinic, and Fascial [...] face down onto concrete while at a [employer] MD on board. Patient reportedly had LOC, unkno wn how long. He was taken to a hospital in [place] where a L brow lac was repaired [...] Ophthalmology, and Fascial Plastics in 2 w [facility]. Call: Trauma clinic or ED at If you have any of the following: flashes, floaters, diplopia Difficulty breathing or unusual shortness of breath Excessive bleeding, drainage at the operative site Fevers, chills, increased pain that is not relieved by pain medications Persistent nausea or vomiting Follow Up Appointments: PCP: Floyd Mcgee MD - as scheduled. Other: NSG, Opthalmology at [facility] or [facility] or clinic, and [...] home in next day or so. Rishabh, [id number] sig juan diego by Gordon Montaño at [...] Min: 97 % Max: 100 % I/O: [id number] Exam: Gen: alert Neuro: following commands, BELLA [...] the resident s note. FÁTIMA HARTLEY MD [facility] 7A TRAUMA ICU [address] [place] [address] Henry Silverman 04/27/20 08 5:37 AM PDT [...] Intake/Output Summary (Last 24 hours) at 04/27 0577 Last data filed at 04/27 0500 Gross [...] hours: No results found for this basename: PH:5,PCO2:5,PO2:5,HCO3:5,FGBBX1BBM:5,P6ZCLQJZ:5,G9VXQMO RC:5,FIO2:5 in the last 72 hours I/Os: [...] the resident s note. FÁTIMA HARTLEY MD [facility] 7A TRAUMA ICU [address] [place] [address] documented in this encoun ter Plan of [...] [facility] | [address] | [place], [place] | | | THERAPY | [address] | [address] | | + + + + + | [facility] | [address] | [place], [place] | | | THERAPY | [address] | [address] | | + + + + + [...] + + + + + | [facility] | [address] | [place] [address] | | | PATHOLOGY | [address] | | | + + + + + | [facility] | [address] | [place] [address] | | | PATHOLOGY | [address] [...] | + + + + + | [facility] DEPARTMENT | [address] [facility] | [place] [address] | | | PATHOLOGY | [address] | | | + + + + + | [facility] | [address] [facility] | [place] [address] | | | PATHOLOGY | [address] [...] [facility] DE[facility] | [address] [facility] | [place] [address] | | | PATHOLOGY | [address] | | | + + + + + | [facility] DEPARTMENT OF | [address] [facility] | [place] [address] | | | PATHOLOGY | [address] [...] | + + + + + | [facility] DEPARTMENT OF | [address] | [place] [address] | | | PATHOLOGY | [address] | | | + + + + + | [facility] DEPARTMENT OF | [address] | [place] [address] | | | PATHOLOGY | [address] [...] view image for the detailed interpretation from [employer] results. | CARDIOLOGY | | | | + + + + + + + + | Performing | Address | City/State/Zipcode | Phone Number | | Organization | | | | + + + + + | [facility] DEPT OF | [address] | [place], [place] | | | CARDIOLOGY | [address] | [address] | | + + + + + | [facility] | [address] | [place], [place] | | | CARDIOLOGY | [address] | [address] | | + + + + + [...] + + + + + | [facility] | [address] | [place] [address] | | | PATHOLOGY | [address] | | | + + + + + | [facility] | [address] | [place] [address] | | | PATHOLOGY | [address] [...] + + + + + | [facility] | [address] | [place] [address] | | | PATHOLOGY | [address] | | | + + + + + | [facility] | [address] | [place] [address] | | | PATHOLOGY | [address] [...] | + + + + + | [facility] DEPARTMENT OF | [address] | [place] [address] | | | PATHOLOGY | [address] | | | + + + + + | [facility] | [address] | [place] [address] | | | PATHOLOGY | [address] [...] + + + + + | [facility] | [facility] | [place] [address] | | | PATHOLOGY | [address] | | | + + + + + | [facility] | [address] [place] [address] | [place] [address] | | | PATHOLOGY | [address] [...] | + + + + + | [facility] DEPARTMENT | [address] [facility] | [place] [address] | | | PATHOLOGY | [address] | | | + + + + + | [facility] | [address] [facility] | [place] [address] | | | PATHOLOGY | [address] [...] DEPARTMENT OF | [address] | [place] [address] | | | PATHOLOGY | [address] | | | + + + + + | [facility] DEPARTMENT | [address] | [place] [address] | | | PATHOLOGY | [address] [...] | + + + + + | [facility] DEPARTMENT OF | [address] [facility] | [place] [address] | | | PATHOLOGY | [address] | | | + + + + + | [facility] DE[facility] OF | [address] [facility] | [place] [address] | | | PATHOLOGY | [address] [...] + + + + + | [facility] | [address] [place] [address] | [place] [address] | | | PATHOLOGY | [address] | | | + + + + + | [facility] DEPARTMENT OF | [facility] | [place] [address] | | | PATHOLOGY | [address] [...] | | | % nasal spray 2 [place] 2 spray, | | 08 9:00 | [...] | | | | | | Starting [facility] 04/26/08 at 0315, | | | [...]
--- OUTSIDE RECORDS SUMMARY | ~2019-12-09 | XMS | Encounter Summary ---
Demographics + + + | Address | [address] | | | [place] [address] | + + + | Home Phone [...] Author + + + | Author | [facility] | + + + | Organization | [facility] | + + + | Address | Unknown | + + + | Phone | Unavailable | + + + Support + + + + + | Name | Relationship | Address | Phone | + + + + + | Candice Recio | FINN | [address] | | | | | [address], [place] | | | | | [address] | | + + + + + | Sergio Almita | FINN | [address] | | | | [address] | | | | | [address] | | + + + + + Care Team Providers + +------+ + | Care First Line Production Supervisor Name | Role | Phone | + +------+ + | Latricia Rodriguez MD | PCP | | + +------+ + Encounter Details +--------+ + + + + | Date | Type | Department | Care Team | Description | +--------+ + + + + | 03/05/ | Office | [facility] | Note, Outpatient | Progress Note | | 1999 | Visit-Trans | MEDICINE | Clinic | [...] as of this encounter Progress Notes Interface, Coil Wrapper In - 07/01/2006 3:09 AM PSTCLINIC DATE: 03/05/2000 [facility] SUBJECTIVE: Tyron Recio is a 14=-year-old who is followed with the diagnosis of aortic valve stenosis. We saw him last a year ago, and in the interim, he has continued to get along well without cardiac symptoms or signs. He takes Ritalin and Tegretol for behavior. OBJECTIVE: On examination today, he is alert, without cyanosis. He weighs 81= pounds. Blood pressure is 108/71. Heart rate is 65 beats per minute. Arterial saturation by pulse oximeter at room air is 100%. Palpation of the precordium reveals no overactivity or thrill. I felt no thrill today in the supramanubrial notch. Abdominal examination was negative. No hepatosplenomegaly or masses were palpable. He has good pulses in all extremities. Upper and lower extremity pulses were synchronous and of equal amplitude. No neck vein distention is noted. No edema is noted. His lungs are clear to auscultation. Cardiac auscultation, as before, shows an ejection click followed by a Grade III/ systolic ejection murmur. The second heart sound moves narrowly. No diastolic murmur is heard. No S3 or S4 is heard. IMPRESSION: Tyron's physical status seems unchanged. We will plan to see him again in one year with an echocardiogram. He should have prophylactic antibiotics when he is at risk of bacteremia to reduce the risk of bacterial endocarditis. There is no need to restrict his activities at this time. However, if he is interested in competing in sports with a team, I would probably advise that he have an exercise test prior to having him do this. Tahir Piedra M.D. Professor, Pediatric Cardiology SOFI/sweetie R: 03/09/2000 cc: LATRICIA RODRIGUEZ MD [address] [facility] [address] [place] [id number] signed by Interface, Coil Wrapper In at 07/01/2006 3:09 AM PSTdocumented in this encounter Plan of Treatment Not on filedocumented as of this encounter Visit Diagnoses Not on filedocumented in this encounter"
--- OUTSIDE RECORDS SUMMARY | ~2019-12-09 | XMS | Encounter Summary ---
Demographics + + + | Address | [address] | | | [place] [address] | + + + | Home Phone [...] [address], [place] | | | | | [address] | | + + + + + | Sergio Almita | FINN | [address] | | | | [address] | | | | | [address] | | + + + + + Care Team Providers + +------+ + | Care Cosmetic Chemist Name | Role | Phone | + [...] [id number] | | | | | | [place], [place] | | | | | | [address] | | | | | | [phone] | | | +--------+ + + + [...]
--- OUTSIDE RECORDS SUMMARY | ~2019-12-09 | XMS | Encounter Summary ---
Demographics + + + | Address | [address] | | | [place] [address] | + + + | Home Phone [...] [address], [place] | | | | | [address] | | + + + + + | Sergio Almita | FINN | [address] | | | | [address] | | | | | [address] | | + + + + + Care Team Providers + +------+ + | Care Director Of Enterprise Architecture Name | Role | Phone | + +------+ + | Floyd Mcgee MD | PCP | | + +------+ + Encounter Details +--------+ + + + + | Date | Type | Department | Care Team | Description | +--------+ + + + + | 05/27/ | Office | UNKNOWN DEPARTMENT | Note, Outpatient | Progress Note | | 2006 | Visit-Trans | [address] [facility] | [facility] | | | | mike | [address] | | | | | | [place], [place] | | | | | | [address] | | | +--------+ + + + [...] as of this encounter Progress Notes Interface, Machine Packager In - 05/31/2007 2:26 AM [facility] [id number] [place] [id number] Clinic Date: 05/27/2007 Clinic: [facility] The patient is a 21-year-old young man who is here and being followed for his congenital heart disease, bicuspid aortic valve with minimal stenosis and regurgitation. He continues without cardiac symptoms or signs. No chest pain, lightheadedness, or shortness of breath. He does not really do much activity at this time. He is not in school. Physical Examination: He is in no distress, alert. He weighs 136 pounds, 71 inches tall, respiratory rate of 16 per minute, and blood pressure is 126/80 with a heart rate of 56 per minute and regular. His arterial saturation by pulse oximeter on room air is 100%. Palpation of the precordium reveals no over activity nor thrill. Abdominal examination is negative without hepatosplenomegaly, masses, or tenderness. He has good pulses in both upper and lower extremities. Lungs are clear to auscultation. Cardiac auscultation reveals an ejection click followed by systolic ejection murmur heard at the third left interspace and into the aortic area. I did not hear a diastolic murmur. Heart sounds are otherwise normal. I did not appreciate an S3 or S4. His echocardiogram is unchanged, only 3 m/s gradient across his valve with mild aortic valve regurgitation. I discussed with the patient and his family that the things are much the same and discussed with the patient particularly that he should know the diagnosis that he carries and the reasons for him being followed. I also related to the patient that there is no further need for him to continue with prophylactic antibiotics when he is at risk for bacteremia according to the new guidelines by the Heart Association. I did stress, however, that he needs to keep his teeth in good shape with brushing and flossing. We will plan to see him again in 2 years for followup. Tahir Piedra M.D. Professor of Pediatrics Division of Pediatric Cardiology [facility] / [id number] / [id number] / [id number] / [id number] cc: Floyd Mcgee M.D. [address] [place] [address] Electronically signed by Tahir Piedra 05-30-2007 07:40:06 AM documented in this encounter Plan of Treatment Not on filedocumented as of this encounter Visit Diagnoses Not on filedocumented in this encounter"
--- OUTSIDE RECORDS SUMMARY | ~2019-12-09 | XMS | Encounter Summary ---
Demographics + + + | Address | [address] | | | [place] [address] | + + + | Home Phone | | + + + | Preferred Language | Unknown | + + + | Marital Status | Single | + + + | Mandaen Affiliation | PRO | + + + | Race | White | + + + | Ethnic Group | Not or | + + + Author + + + | Author | [facility] | + + + | Organization | [facility] | + + + | Address | Unknown | + + + | Phone | Unavailable | + + + Support + + + + + | Name | Relationship | Address | Phone | + + + + + | Candice Recio | FINN | [address] | | | | | [address], [place] | | | | | [address] | | + + + + + | Sergio Almita | FINN | [address] | | | | [address] | | | | | [address] | | + + + + + Care Team Providers + +------+ + | Care Terminal Gauger Supervisor Name | Role | Phone | [...] [id number] | | | | | | [place], [place] | | | | | | [address] | | | | | | [phone] | | | +--------+ + + + [...]
--- OUTSIDE RECORDS SUMMARY | ~2019-12-09 | XMS | Encounter Summary ---
Demographics + + + | Address | [address] | | | [place] [address] | + + + | Home Phone [...] Author + + + | Author | [facility] | + + + | Organization | [facility] | + + + | Address | Unknown | + + + | Phone | Unavailable | + + + Support + + + + + | Name | Relationship | Address | Phone | + + + + + | Candice Recio | FINN | [address] | | | | | [address], [place] | | | | | [address] | | + + + + + | Sergio Almita | FINN | [address] | | | | [address] | | | | | [address] | | + + + + + Care Team Providers + +------+ + | Care Yarder Operator Name | Role | Phone | + +------+ + | Floyd Rodriguez MD | PCP | | + +------+ + Encounter Details +--------+ + + + + | Date | Type | Department | Care Team | Description | +--------+ + + + + | 12/16/ | Transcribed | Allergy Clinic at | Dictation, Other | Transcribed | | 1995 | | [facility] [address] | | | | | | [address] | | | | | | [address] | | | | | | [facility], 7th floor | | | | | | [place], [place] | | | | | | [address] | | | | | | [phone] | | | +--------+ + + + [...] as of this encounter Progress Notes Interface, Aemt In - 11/12/2006 3:11 AM PDT [address], [address] [address] (985) 26 [facility] Pediatr December 17, 1995 SHERRIE RODRIGUEZ MD [address] [place] [address] [address] [place] [address] RE:Tyron Recio MR#:[id number] : 1985 Dear Doctor [...]
--- OUTSIDE RECORDS SUMMARY | ~2019-12-09 | XMS | Encounter Summary ---
Demographics + + + | Address | [address] | | | [place] [address] | + + + | Home Phone [...] Author + + + | Author | [facility] | + + + | Organization | [facility] | + + + | Address | Unknown | + + + | Phone | Unavailable | + + + Support + + + + + | Name | Relationship | Address | Phone | + + + + + | Candice Recio | FINN | [address] | | | | | [address], [place] | | | | | [address] | | + + + + + | Sergio Almita | FINN | [address] | | | | [address] | | | | | [address] | | + + + + + Care Team Providers + +------+ + | Care Clinical Support Associate Name | Role | Phone | + [...] [id number] | | | | | | | | | | | | [address] | | | | | | [phone] | | | +--------+ + + + [...]
--- OUTSIDE RECORDS SUMMARY | ~2019-12-09 | XMS | Encounter Summary ---
Demographics + + + | Address | [address] | | | [place] [address] | + + + | Home Phone [...] + + + | Author | [facility] | + + + | Organization | [facility] | + + + | Address | Unknown | + + + | Phone | Unavailable | + + + Support + + + + + | Name | Relationship | Address | Phone | + + + + + | Candice Recio | FINN | [address] | | | | | [address], [place] | | | | | [address] | | + + + + + | Sergio Almita | FINN | [address] | | | | [address] | | | | | [address] | | + + + + + Care Team Providers + +------+ + | Care Net Ui Developer Name | Role | Phone | + [...] Anton | | | | | | [facility] | | | | | | [address] | | | | | | Anton | | | | | | [facility] | | | | | | 7th Floor [place], | | | | | | [place] [address] | | | | | | [phone] | | | +--------+ + + + [...]
--- OUTSIDE RECORDS SUMMARY | ~2019-12-09 | XMS | Encounter Summary ---
Demographics + + + | Address | [address] | | | [place] [address] | + + + | Home Phone | | + + + | Preferred Language | Unknown | + + + | Marital Status | Single | + + + | Jainism Affiliation | PRO | + + + [...] [address], [place] | | | | | [address] | | + + + + + | Sergio Almita | ECON | [address] | | | | [address], [place] | | | | | [address] | | + + + + + Care Team Providers + +------+ + | Care Cellophane Worker Name | Role | Phone | [...] | MD | | | | | [place] [address] | | | | | | [address] | | | | | | Pediatric | | | | | | [facility] | | | | | | [place], [place] | | | | | | [address] | | | | | | [phone] | | | +--------+ + + + [...]
--- OUTSIDE RECORDS SUMMARY | ~2019-12-09 | XMS | Encounter Summary ---
Demographics + + + | Address | [address] | | | [place] [address] | + + + | Home Phone | | + + + | Preferred Language | Unknown | + + + | Marital Status | Single | + + + | Mu-Ism Affiliation | PRO | + + + [...] [address], [place] | | | | | [address] | | + + + + + | Sergio Recio | ECON | [address] | | | | [address], [place] | | | | | [address] | | + + + + + Care Team Providers + +------+ + | Care Transport Manager Name | Role | Phone | [...] as of this encounter Progress Notes Interface, Screener Perfumer In - 06/08/2006 2:31 AM PDT [id number] [place] [id number] Clinic Date: 05/28/2006 Clinic: [facility] [facility] History: Tyron is a [...] of Pediatrics Division of Pediatric Cardiology [facility] / [id number] / [id number] / [id number] / [id number] cc: * Floyd Mcgee M.D. [address] [facility] [address] [place] [address] Electronically signed by Tahir Piedra 06-07-2006 07:42:04 AM documented i n this encounter Plan of Treatment Not on filedocumented as of this encounter Visit Diagnoses Not on filedocumented in this encounter"
--- OUTSIDE RECORDS SUMMARY | ~2019-12-09 | XMS | Encounter Summary ---
Demographics + + + | Address | [address] | | | [place] [address] | + + + | Home Phone | | + + + | Preferred Language | Unknown | + + + | Marital Status | Single | + + + | Christianity Affiliation | PRO | + + + [...] [address], [place] | | | | | [address] | | + + + + + | Sergio Almita | FINN | [address] | | | | [address] | | | | | [address] | | + + + + + Care Team Providers + +------+ + | Care Crop Or Grain Farmer Name | Role | Phone | + [...] as of this encounter Progress Notes Interface, Mash Filter Press Operator In - 01/28/2006 3:07 AM PDTClinic Date: 05/25/2003 PEDIATRIC CARDIOLOGY Clinic Site: [facility] Tyron is a [...] Division of Pediatric Cardiology [facility] ABISAI/josseline A [id number] cc: Floyd Mcgee M.D. [address] [facility] [address] [place], [place] [id number] signed by Interface, Mash Filter Press Operator In at 01/28/2006 3:0 7 AM PDTdocumented in this encounter Plan of Treatment Not on filedocumented as of this encounter Visit Diagnoses Not on filedocumented in this encounter"
--- OUTSIDE RECORDS SUMMARY | ~2019-12-09 | XMS | Encounter Summary ---
Demographics + + + | Address | [address] | | | [place] [address] | + + + | Home Phone [...] Author + + + | Author | [facility] | + + + | Organization | [facility] | + + + | Address | Unknown | + + + | Phone | Unavailable | + + + Support + + + + + | Name | Relationship | Address | Phone | + + + + + | Candice Recio | FINN | [address] | | | | | [address], [place] | | | | | [address] | | + + + + + | Sergio Almita | FINN | [address] | | | | [address] | | | | | [address] | | + + + + + Care Team Providers + +------+ + | Care Lead Inspector Name | Role | Phone | + [...] floor | | | | | | [place], [place] | | | | | | [address] | | | | | | [phone] | | | +--------+---------+ + + + [...] Physician & Surgeon Department of Neurological Surgery [facility] & [address], [address] [address] Pager: [phone] Sheela Estrada, Roly Arreola - 05/09 1:12 [...]
--- OUTSIDE RECORDS SUMMARY | ~2019-12-09 | XMS | Encounter Summary ---
Demographics + + + | Address | [address] | | | [place] [address] | + + + | Home Phone [...] [address], [place] | | | | | [address] | | + + + + + | Sergio Almita | FINN | [address] | | | | [address] | | | | | [address] | | + + + + + Care Team Providers + +------+ + | Care Laborer Wrecking And Salvaging Name | Role | Phone | + [...] [id number] | | | | | | [place], [place] | | | | | | [address] | | | | | | [phone] | | | +--------+ + + + [...]
--- OUTSIDE RECORDS SUMMARY | ~2019-12-09 | XMS | Encounter Summary ---
Demographics + + + | Address | [address] | | | [place] [address] | + + + | Home Phone | | + + + | Preferred Language | Unknown | + + + | Marital Status | Single | + + + | Caodaism Affiliation | PRO | + + + [...] [address], [place] | | | | | [address] | | + + + + + | Sergio Recio | ECON | [address] | | | | [address], [place] | | | | | [address] | | + + + + + Care Team Providers + +------+ + | Care Molasses Feed Mixer Name | Role | Phone | + [...]
--- OUTSIDE RECORDS SUMMARY | ~2019-12-09 | XMS | Encounter Summary ---
Demographics + + + | Address | [address] | | | [place] [address] | + + + | Home Phone [...] Author + + + | Author | [facility] | + + + | Organization | [facility] | + + + | Address | Unknown | + + + | Phone | Unavailable | + + + Support + + + + + | Name | Relationship | Address | Phone | + + + + + | Candice Recio | FINN | [address] | | | | | [address], [place] | | | | | [address] | | + + + + + | Sergio Almita | FINN | [address] | | | | [address] | | | | | [address] | | + + + + + Care Team Providers + +------+ + | Care Compliance Engineer Products Name | Role | Phone | + [...] [id number] | | | | | | [place], [place] | | | | | | [address] | | | | | | [phone] | | | +--------+ + + + [...]
--- OUTSIDE RECORDS SUMMARY | ~2019-12-09 | XMS | Clinical Summary ---
Demographics + + + | Address | [address] | | | [place] [address] | + + + | Home Phone | | + + + | Preferred Language | Unknown | + + + | Marital Status | Single | + + + | Episcopalian Affiliation | Unknown | + + + | Race | Unknown | + + + | Ethnic Group | Unknown | + + + Author + + + | Author | [facility] | | | and [place] | + + + | Organization | [facility] | | | and [...] Team Providers + +------+ + | Care Bellhop Service Captain Name | Role | Phone | + [...] [place], | | | | | | [place] [address] | | | | | | [phone] | | | | | | | [...] | [employer] | [employer] | [id number] | 02/14/20 | [phone] | | [employer] | | MEDICAID HMO [...] | | | 0 (Home) | [place] [address] | + +--------+ +--------+ + + Advance Directives + + + + + | Type | Date Recorded | Patient | Explanation | | | | Detacher | | + + + + + | Power of | | | | | Spinning Doffer | | | | + + + + + | Advance | | | | | Directive | | | | + + + + +"
--- OUTSIDE RECORDS SUMMARY | ~2019-12-09 | XMS | Encounter Summary ---
Demographics + + + | Address | [address] | | | [place] [address] | + + + | Home Phone | | + + + | Preferred Language | Unknown | + + + | Marital Status | Single | + + + | Sabianist Affiliation | PRO | + + + [...] | Candice Recio | FINN | [address] | | | | | [address], [place] | | | | | [address] | | + + + + + | Sergio Almita | FINN | [address] | | | | [address] | | | | | [address] | | + + + + + Care Team Providers + +------+ + | Care Locomotive Inspector Name | Role | Phone | + +------+ + | Flody Mcgee MD | PCP | | + [...] | | closed | Rd [facility] | [place], [place] | | | | | fracture | [facility] | [address] | | | | | | [place], [place] | | | | | | | [address] | | | | | | | Phone: | | | | | | | [phone] | | +--------+--------+ + + + + [...] | (Primary Dx) | | | | [facility] | | | | | | [facility], | | | | | | Building 1, | | | | | | floor [place], [place] | | | | | | [address] | | | | | | [phone] | | | +--------+---------+ + + + [...] side (injured side) is normal. Assessment: Nonoperative [facility] [place] fracture healing well. Likely transection of distal [...]
--- OUTSIDE RECORDS SUMMARY | ~2019-12-09 | XMS | Encounter Summary ---
Demographics + + + | Address | [address] | | | [place] [address] | + + + | Home Phone | | + + + | Preferred Language | Unknown | + + + | Marital Status | Single | + + + | Jewish Affiliation | PRO | + + + [...] [address], [place] | | | | | [address] | | + + + + + | Sergio Almita | FINN | [address] | | | | [address] | | | | | [address] | | + + + + + Care Team Providers + +------+ + | Care Medicine Technologist Name | Role | Phone | + [...] as of this encounter Progress Notes Interface, Gasoline Engine Assembler In - 07/01/2006 3:09 AM PSTCLINIC DATE: 03/05/2000 [facility] SUBJECTIVE: Tyron Recio is [...] 03/09/2000 cc: LATRICIA RODRIGUEZ MD [address] [facility] [address] [place] [address]Skmqteuveklsky signed by Interface, Gasoline Engine Assembler In at 07/01/2006 3:09 AM PSTdocumented in this encounter Plan of Treatment Not on filedocumented as of this encounter Visit Diagnoses Not on filedocumented in this encounter"
--- OUTSIDE RECORDS SUMMARY | ~2019-12-09 | XMS | Encounter Summary ---
Demographics + + + | Address | [address] | | | [place] [address] | + + + | Home Phone [...] [address], [place] | | | | | [address] | | + + + + + | Sergio Almita | FINN | [address] | | | | [address] | | | | | [address] | | + + + + + Care Team Providers + +------+ + | Care Wildlife Control Operator Name | Role | Phone | [...] as of this encounter Progress Notes Interface, Cocoa Bean Roaster In - 07/31/2006 5:02 AM PSTCLINIC DATE: 03/06/1999 [facility] SUBJECTIVE: Tyron is a [...] RODRIGUEZ MD [address] [facility] [id number] signed by Interface, Cocoa Bean Roaster In at 07/31/2006 5 :02 AM PSTdocumented in this encounter Plan of Treatment Not on filedocumented as of this encounter Visit Diagnoses Not on filedocumented in this encounter
--- OUTSIDE RECORDS SUMMARY | ~2019-12-09 | XMS | Encounter Summary ---
Demographics + + + | Address | [address] | | | [place] [address] | + + + | Home Phone [...] + + + | Author | [facility] | + + + | Organization | [facility] | + + + | Address | Unknown | + + + | Phone | Unavailable | + + + Support + + + + + | Name | Relationship | Address | Phone | + + + + + | Candice Recio | FINN | [address] | | | | | [address], [place] | | | | | [address] | | + + + + + | Sergio Almita | FINN | [address] | | | | [address] | | | | | [address] | | + + + + + Care Team Providers + +------+ + | Care Sash Maker Name | Role | Phone | [...] | | 2006 | Visit-Trans | [address] [facility] | [facility] | | | | mike | [address] | | | | | | [place], [place] | | | | | | [address] | | | +--------+ + + + [...] as of this encounter Progress Notes Interface, Shipyard Painting Supervisor In - 05/31/2007 2:26 AM [facility] [id number] ALMITA AMARO [id number] Clinic Date: 05/27/2007 Clinic: [facility] The patient is a [...] Professor of Pediatrics Division of Pediatric Cardiology [facility] / [id number] / [id number] / [id number] / [id number] cc: Floyd Mcgee M.D. [address] [place] [address] Electronically signed by Tahir Piedra 05-30-2007 07:40:06 AM documented in this encounter Plan of Treatment Not on filedocumented as of this encounter Visit Diagnoses Not on filedocumented in this encounter"
--- OUTSIDE RECORDS SUMMARY | ~2019-12-09 | XMS | Encounter Summary ---
Demographics + + + | Address | [address] | | | [place] [address] | + + + | Home Phone | | + + + | Preferred Language | Unknown | + + + | Marital Status | Single | + + + | Presybeterian Affiliation | PRO | + + + [...] [address], [place] | | | | | [address] | | + + + + + | Sergio Almita | FINN | [address] | | | | [address] | | | | | [address] | | + + + + + Care Team Providers + +------+ + | Care Attractions Associate Name | Role | Phone | + +------+ + | Floyd Mcgee MD | PCP | | + +------+ + Encounter Details +--------+ + + + + | Date | Type | Department | Care Team | Description | +--------+ + + + + | 04/02/ | Ancillary | Registration [address] | Tahir Pidera, | | | 2005 | Registratio | [address] | | | | | [place] | Austyn Mailcode: [id number] | | | | | | [place], [place] | | | | | | [address] | | | | | | [phone] | | | +--------+ + + + [...]
--- OUTSIDE RECORDS SUMMARY | ~2019-12-09 | XMS | Encounter Summary ---
Demographics + + + | Address | [address] | | | [place] [address] | + + + | Home Phone | | + + + | Preferred Language | Unknown | + + + | Marital Status | Single | + + + | Shinto Affiliation | PRO | + + + | Race | White | + + + | Ethnic Group | Not or | + + + Author + + + | Author | [facility] | + + + | Organization | [facility] | + + + | Address | Unknown | + + + | Phone | Unavailable | + + + Support + + + + + | Name | Relationship | Address | Phone | + + + + + | Candice Recio | FINN | [address] | | | | | [address], [place] | | | | | [address] | | + + + + + | Sergio Almita | FINN | [address] | | | | [address] | | | | | [address] | | + + + + + Care Team Providers + +------+ + | Care Gravel Inspector Name | Role | Phone | [...] TTE) | | 2001 | | [address] [facility] | [phone] | | | | Transcribed | [address] | | | | | | [place], [place] | | | | | | [address] | | | +--------+ + + + [...] 12:00 AM PDTAssociated Order(s): TRANSTHORACIC ECHOCARDIOGRAM, ADULT [facility] DATE: 06/09/02 [place], [place] MED REC NO: [id number] NAME: DIPAKMarcellusTYRON ECHOCARDIOGRAPHY REPORT BIRTHDATE: 89 INDICATION [...] Other, Faculty - 06/09/2002 12:00 AM PDT [facility] DATE: | | 06/09/02 [place], [place] MED REC NO: [id number] NAME: TYRON RECIO | | ECHOCARDIOGRAPHY REPORT [...]
--- OUTSIDE RECORDS SUMMARY | ~2019-12-09 | XMS | Encounter Summary ---
Demographics + + + | Address | [address] | | | [place] [address] | + + + | Home Phone [...] [address], [place] | | | | | [address] | | + + + + + | Sergio Recio | ECON | [address] | | | | [address], [place] | | | | | [address] | | + + + + + Care Team Providers + +------+ + | Care Chucking Machine Operator Name | Role | Phone [...] as of this encounter Progress Notes Interface, Utilization Review Specialist In - 03/15/2005 11:11 AM PDT [id number] [facility]: [facility] Tyron is now almost [...] Professor of Pediatrics Division of Pediatric Cardiology [facility] / [id number] / [id number] / [id number] / cc: Floyd Mcgee M.D. [address] [address] Electronically signed by Tahir Piedra 12-25-2004 07:48:36 AM documented i n this encounter Plan of Treatment Not on filedocumented as of this encounter Visit Diagnoses Not on filedocumented in this encounter"
--- OUTSIDE RECORDS SUMMARY | ~2019-12-09 | XMS | Encounter Summary ---
Demographics + + + | Address | [address] | | | [place] [address] | + + + | Home Phone [...] [address], [place] | | | | | [address] | | + + + + + | Sergio Almita | FINN | [address] | | | | [address] | | | | | [address] | | + + + + + Care Team Providers + +------+ + | Care Pocket Machine Operator Name | Role | Phone [...] | MD | | | | | [place] [address] | | | | | | [address] | | | | | | Pediatric | | | | | | [facility] | | | | | | [place], [place] | | | | | | [address] | | | | | | [phone] | | | +--------+ + + + [...]
--- OUTSIDE RECORDS SUMMARY | ~2019-12-09 | XMS | Encounter Summary ---
Demographics + + + | Address | [address] | | | [place] [address] | + + + | Home Phone [...] [address], [place] | | | | | [address] | | + + + + + | Sergio Almita | FINN | [address] | | | | [address] | | | | | [address] | | + + + + + Care Team Providers + +------+ + | Care Wedger And Gluer Name | Role | Phone | + +------+ + | Floyd Mcgee MD | PCP | | + +------+ + Encounter Details +--------+ + + + + | Date | Type | Department | Care Team | Description | +--------+ + + + + | 05/20/ | Armhole Baster Hand | Pediatric | Tahir Piedra, | Congenital Stenosis | | 2006 | | Cardiology at | MD | of Aortic Valve | | | | [place] [address] | | (Primary Dx) | | | | [address] | | | | | | Pediatric | | | | | | [facility]s | | | | | | [place], [place] | | | | | | [address] | | | | | | [phone] | | | +--------+ + + + [...]
--- OUTSIDE RECORDS SUMMARY | ~2019-12-09 | XMS | Encounter Summary ---
Demographics + + + | Address | [address] | | | [place] [address] | + + + | Home Phone [...] [address], [place] | | | | | [address] | | + + + + + | Sergio Almita | FINN | [address] | | | | [address] | | | | | [address] | | + + + + + Care Team Providers + +------+ + | Care Alining Inspector Name | Role | Phone | [...] + + + | Closed | | Website/Blog Editor | | [facility] | Ent | | | | | | Owen Rose, | Audiology [facility] | | | | | | MD [address] | | | | | [address] | [address] | | | | | | [place], [place] | Physician's | | | | | | [address] | Pavilion, | | | | | | | 2nd floor | | | | | | | [place], [place] | | | | | | | [address] | | | | | | | Phone: | | | | | | | [phone] | | | | | | | Fax: | | | | | | | [phone] | +--------+--------+ + + + + Encounter Details +--------+---------+ + + + | Date | Type | Department | Care Team | Description | +--------+---------+ + + + | 05/09/ | Office | Otolaryngology | [facility] | Sensorineural | | 2007 | Visit | Audiology Services | [address] | Hearing Loss, | | | | at [facility] [address] [place], | Bilateral (Primary | | | | [address] | [place] [address] | Dx) | | | | Physician's | | | | | | Pavilion, 2nd floor | | | | | | [place], [place] | | | | | | [address] | | | | | | [phone] | | | +--------+---------+ + + + [...] | + + +--------+ + + | [facility] TYMPANOMETRY | Procedures | Routin | Sensorineural | Ordered: 05/11/2008 | | | | e | Hearing Loss, | | | | | | Bilateral | | + + +--------+ + + | [facility] EVOKED AUDITORY | Procedures | Routin | Sensorineural | Ordered: 05/11/2008 | | TEST,COMPREHSV | | e | Hearing Loss, | | | | | | Bilateral | | + + +--------+ + + | [facility] COMPREHENSIVE | Procedures | Routin | Sensorineural [...]
--- OUTSIDE RECORDS SUMMARY | ~2019-12-09 | XMS | Encounter Summary ---
Demographics + + + | Address | [address] | | | [place] [address] | + + + | Home Phone | | + + + | Preferred Language | Unknown | + + + | Marital Status | Single | + + + | Jehovah'S Witness Affiliation | PRO | + + + | Race | White | + + + | Ethnic Group | Not or | + + + Author + + + | Author | [facility] | + + + | Organization | [facility] | + + + | Address | Unknown | + + + | Phone | Unavailable | + + + Support + + + + + | Name | Relationship | Address | Phone | + + + + + | Candice Recio | FINN | [address] | | | | | [address], [place] | | | | | [address] | | + + + + + | Sergio Almita | FINN | [address] | | | | [address] | | | | | [address] | | + + + + + Care Team Providers + +------+ + | Care Pt Sitter Name | Role | Phone | + [...] [id number] | | | | | | [place], [place] | | | | | | [address] | | | | | | [phone] | | | +--------+ + + + [...]
--- OUTSIDE RECORDS SUMMARY | ~2019-12-09 | XMS | Encounter Summary ---
Demographics + + + | Address | [address] | | | [place] [address] | + + + | Home Phone [...] [address], [place] | | | | | [address] | | + + + + + | Sergio Recio | ECON | [address] | | | | [address], [place] | | | | | [address] | | + + + + + Care Team Providers + +------+ + | Care Chief Warden Name | Role | Phone | + [...] as of this encounter Progress Notes Interface, Outcomes Manager In - 06/08/2006 2:31 AM PDT [id number] CHOLO AMARO [id number] Clinic Date: 05/28/2006 Clinic: [facility] History: Tyron is a [...] Professor of Pediatrics Division of Pediatric Cardiology [facility] / [id number] / [id number] / [id number] / [id number] cc: * Floyd Mcgee M.D. [address] [facility] [address] [place] [address] Electronically signed by Tahir Piedra 06-07-2006 07:42:04 AM documented i n this encounter Plan of Treatment Not on filedocumented as of this encounter Visit Diagnoses Not on filedocumented in this encounter"
--- OUTSIDE RECORDS SUMMARY | ~2019-12-09 | XMS | Encounter Summary ---
Demographics + + + | Address | [address] | | | [place] [address] | + + + | Home Phone | | + + + | Preferred Language | Unknown | + + + | Marital Status | Single | + + + | Taoism Affiliation | PRO | + + + | Race | White | + + + | Ethnic Group | Not or | + + + Author + + + | Author | [facility] | + + + | Organization | [facility] | + + + | Address | Unknown | + + + | Phone | Unavailable | + + + Support + + + + + | Name | Relationship | Address | Phone | + + + + + | Candice Recio | FINN | [address] | | | | | [address], [place] | | | | | [address] | | + + + + + | Sergio Almita | FINN | [address] | | | | [address] | | | | | [address] | | + + + + + Care Team Providers + +------+ + | Care Rouge Presser Name | Role | Phone | + [...] Clinic | | | | | | [facility], [address] | | | | | | [place], [place] | | | | | | [address] | | | | | | [phone] | | | +--------+ + + + [...] as of this encounter Progress Notes Interface, Nuclear Process Engineer In - 09/28/2006 3:11 AM PST CLINIC [...] Cardiology ABISAI/shana P cc: LATRICIA RODRIGUEZ MD [address] [place] [address] [place] [phone] documented in this encounter Plan of Treatment Not on filedocumented as of this encounter Visit Diagnoses Not on filedocumented in this encounter"
--- OUTSIDE RECORDS SUMMARY | ~2019-12-09 | XMS | Encounter Summary ---
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
--- OUTSIDE RECORDS SUMMARY | ~2019-12-09 | XMS | Encounter Summary ---
Demographics + + + | Address | [address] | | | [place] [address] | + + + | Home Phone [...] + + + | Author | [facility] | + + + | Organization | [facility] | + + + | Address | Unknown | + + + | Phone | Unavailable | + + + Support + + + + + | Name | Relationship | Address | Phone | + + + + + | Candice Recio | FINN | [address] | | | | | [address], [place] | | | | | [address] | | + + + + + | Sergio Almita | FINN | [address] | | | | [address], [place] | | | | | [address] | | + + + + + Care Team Providers + +------+ + | Care Lighting Engineer Name | Role | Phone | [...] | | | | | | [place] [facility] | | | | | | | [facility] | | | | | | | [place], [place] | | | | | | | [address] | | | | | | | Phone: | | | | | | | [phone] | +--------+--------+ + + + + Encounter Details +--------+ + + + + | Date | Type | Department | Care Team | Description | +--------+ + + + + | 04/26/ | Hospital | [facility] [address] | Rober Stoddard, | | | 2007 - | Encounter | [address] | | | | | | [id number] [facility] | | | | 04/27/ | | [facility], | | | | 2007 | | [place] [address] | | | +--------+ + + + [...] onto 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 Patient reportedly had LOC, unknown how long. He was taken to a hospital in [place] where a L brow lac was repaired [...] - as scheduled. Other: NSG, Opthalmology at [facility] or OSH or clinic, and Fascial Plastics with Dr. Nichole at [phone] Follow Up Tests: will need an audiogram [...] He was taken to a hospital in [place] where a L brow lac was repaired [...] - as scheduled. Other: NSG, Opthalmology at [facility] or OS or clinic, and Fascial [...] face down onto concrete while at a [employer] on board. Patient reportedly had LOC, unkno wn how long. He was taken to a hospital in [place] where a L brow lac was repaired [...] Ophthalmology, and Fascial Plastics in [address] [facility]. Call: Trauma clinic or ED at If you have any of the following: flashes, floaters, diplopia Difficulty breathing or unusual shortness of breath Excessive bleeding, drainage at the operative site Fevers, chills, increased pain that is not relieved by pain medications Persistent nausea or vomiting Follow Up Appointments: PCP: Floyd Mcgee MD - as scheduled. Other: NSG, Opthalmology at [facility] or [facility] or clinic, and Fascial Plastics with Dr. [...] home in next day or so. Rishabh, [id number] sig [place]an [place] by Gordon Montaño at [...] Min: 97 % Max: 100 % I/O: 6529/5621 Exam: Gen: alert Neuro: following commands, BELLA [...] the resident s note. FÁTIMA HARTLEY MD [facility] 7A TRAUMA ICU [address] [place] [address] Henry Silverman 04/27/20 08 5:37 AM PDT [...] Intake/Output Summary (Last 24 hours) at 04/27 0589 Last data filed at 04/27 0500 Gross [...] hours: No results found for this basename: PH:5,PCO2:5,PO2:5,HCO3:5,BCFJE5MKI:5,R6ZKJUBL:5,U7IUYMS RC:5,FIO2:5 in the last 72 hours I/Os: [...] the resident s note. FÁTIMA HARTLEY MD [facility] 7A TRAUMA ICU [address] [place] [address] documented in this encoun ter Plan of [...] [facility] | [address] | [place], [place] | | | THERAPY | [address] | [address] | | + + + + + | [facility] | [address] | [place], [place] | | | THERAPY | [address] | [address] | | + + + + + [...] | + + + + + | [facility] | [address] | [place] [address] | | | PATHOLOGY | [address] | | | + + + + + | [facility] | [address] | [place] [address] | | | PATHOLOGY | [address] [...] | + + + + + | [facility] DEPARTMENT | [address] [facility] | [place] [address] | | | PATHOLOGY | [address] | | | + + + + + | [facility] | [address] [facility] | [place] [address] | | | PATHOLOGY | [address] [...] + | [facility] DEPARTMENT OF | [address] [facility] | [place] [address] | | | PATHOLOGY | [address] | | | + + + + + | [facility] DEPARTMENT OF | [address] [facility] | [place] [address] | | | PATHOLOGY | [address] [...] | + + + + + | [facility] DEPARTMENT OF | [address] | [place] [address] | | | PATHOLOGY | [address] | | | + + + + + | [facility] DEPARTMENT OF | [address] | [place] [address] | | | PATHOLOGY | [address] [...] view image for the detailed interpretation from [employer] results. | CARDIOLOGY | | | | + + + + + + + + | Performing | Address | City/State/Zipcode | Phone Number | | Organization | | | | + + + + + | [facility] | [address] | [place], [place] | | | CARDIOLOGY | [address] | [address] | | + + + + + | [facility] | [address] | [place], [place] | | | CARDIOLOGY | [address] | [address] | | + + + + + [...] | + + + + + | [facility] | [address] | [place] [address] | | | PATHOLOGY | [address] | | | + + + + + | [facility] | [address] | [place] [address] | | | PATHOLOGY | [address] [...] | + + + + + | [facility] | [address] | [place] [address] | | | PATHOLOGY | [address] | | | + + + + + | [facility] | [address] | [place] [address] | | | PATHOLOGY | [address] [...] | + + + + + | [facility] DEPARTMENT OF | [address] | [place] [address] | | | PATHOLOGY | [address] | | | + + + + + | [facility] | [address] | [place] [address] | | | PATHOLOGY | [address] [...] | + + + + + | [facility] | [facility] | [place] [address] | | | PATHOLOGY | [address] | | | + + + + + | [facility] | [address] [place] [address] | [place] [address] | | | PATHOLOGY | [address] [...] | + + + + + | [facility] DEPARTMENT | [address] [facility] | [place] [address] | | | PATHOLOGY | [address] | | | + + + + + | [facility] | [address] [facility] | [place] [address] | | | PATHOLOGY | [address] [...] DEPARTMENT OF | [address] | [place] [address] | | | PATHOLOGY | [address] | | | + + + + + | [facility] DEPART[facility] | [address] | [place] [address] | | | PATHOLOGY | [address] [...] | + + + + + | [facility] DEPARTMENT OF | [address] [facility] | [place] [address] | | | PATHOLOGY | [address] | | | + + + + + | [facility] DEPARTMENT OF | [address] [facility] | [place] [address] | | | PATHOLOGY | [address] [...] | + + + + + | [facility] | [address] [place] [address] | [place] [address] | | | PATHOLOGY | [address] | | | + + + + + | [facility] DEPARTMENT OF | [facility] | [place] [address] | | | PATHOLOGY | [address] [...] | | | % nasal spray 2 [place] 2 spray, | | 08 9:00 | [...] | | | | | | Starting [facility] 04/26/08 at 0315, | | | [...]
--- OUTSIDE RECORDS SUMMARY | ~2019-12-09 | XMS | Encounter Summary ---
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
--- OUTSIDE RECORDS SUMMARY | ~2019-12-09 | XMS | Encounter Summary ---
Demographics + + + | Address | [address] | | | [place] [address] | + + + | Home Phone | | + + + | Preferred Language | Unknown | + + + | Marital Status | Single | + + + | Orthodoxy Affiliation | PRO | + + + [...] [address], [place] | | | | | [address] | | + + + + + | Sergio Almita | FINN | [address] | | | | [address] | | | | | [address] | | + + + + + Care Team Providers + +------+ + | Care Furniture Associate Name | Role | Phone | [...] + + + | Closed | | Pipe Joints Supervisor | | [facility] | Ent | | | | | | Owen Rose, | Audiology [facility] | | | | | | MD [address] | | | | | [address] | [address] | | | | | | [place], [place] | Physician's | | | | | | [address] | Pavilion, | | | | | | | 2nd floor | | | | | | | [place], [place] | | | | | | | [address] | | | | | | | Phone: | | | | | | | [phone] | | | | | | | Fax: | | | | | | | [phone] | +--------+--------+ + + + + Encounter Details +--------+---------+ + + + | Date | Type | Department | Care Team | Description | +--------+---------+ + + + | 05/09/ | Office | Otolaryngology | [facility] | Sensorineural | | 2007 | Visit | Audiology Services | [address] | Hearing Loss, | | | | at [facility] [address] [place], | Bilateral (Primary | | | | [address] | [place] [address] | Dx) | | | | Physician's | | | | | | Pavilion, 2nd floor | | | | | | [place], [place] | | | | | | [address] | | | | | | [phone] | | | +--------+---------+ + + + [...] | + + +--------+ + + | [facility] T[facility]MPANOMETRY | Procedures | Routin | Sensorineural | Ordered: 05/11/2008 | | | | e | Hearing Loss, | | | | | | Bilateral | | + + +--------+ + + | [facility] EVOKED AUDITORY | Procedures | Routin | Sensorineural | Ordered: 05/11/2008 | | TEST,COMPREHSV | | e | Hearing Loss, | | | | | | Bilateral | | + + +--------+ + + | [facility] COMPREHENSIVE | Procedures | Routin | Sensorineural [...]
--- OUTSIDE RECORDS SUMMARY | ~2019-12-09 | XMS | Encounter Summary ---
Demographics + + + | Address | [address] | | | [place] [address] | + + + | Home Phone [...] [address], [place] | | | | | [address] | | + + + + + | Sergio Almita | FINN | [address] | | | | [address] | | | | | [address] | | + + + + + Care Team Providers + +------+ + | Care Daylight Driller Name | Role | Phone | + [...] [id number] | | | | | | [place], [place] | | | | | | [address] | | | | | | [phone] | | | +--------+ + + + [...]
--- OUTSIDE RECORDS SUMMARY | ~2019-12-09 | XMS | Encounter Summary ---
Demographics + + + | Address | [address] | | | [place] [address] | + + + | Home Phone [...] [address], [place] | | | | | [address] | | + + + + + | Sergio Almita | FINN | [address] | | | | [address] | | | | | [address] | | + + + + + Care Team Providers + +------+ + | Care Printing Sales Representative Name | Role | Phone | [...] TTE) | | 1998 | | [address] [facility] | [phone] | | | | Transcribed | [address] | | | | | | [place], [place] | | | | | | [address] | | | +--------+ + + + [...] ECHOCARDIOGRAM, ADULT DATE: 03/06/99 MED REC NO: [id number] NAME: TYRON RECOI ECHOCARDIOGRAPHY REPORT BIRTHDATE: [birth year] CARDIAC QUERY: AORTIC STENOSIS UNIT: [place] STUDY NO: [id number] TAPE NO. [id number] REF. [...] REVIEW OF THIS STUDY WITH THE STAFF PILING CUTTER. documented in this encou nter Plan of [...] DATE: 03/06/99 | | MED REC NO: [id number] | | NAME: TYRON RECIO | | [...] REVIEW OF THIS STUDY WITH THE STAFF PILING CUTTER. | | | | | + + documented in this encounter Visit Diagnoses Not on filedocumented in this encounter"
--- OUTSIDE RECORDS SUMMARY | ~2019-12-09 | XMS | Encounter Summary ---
Demographics + + + | Address | [address] | | | [place] [address] | + + + | Home Phone [...] [address], [place] | | | | | [address] | | + + + + + | Sergio Almita | FINN | [address] | | | | [address] | | | | | [address] | | + + + + + Care Team Providers + +------+ + | Care Ekg/Ecg Technician Name | Role | Phone | [...] TTE) | | 2002 | | [address] [facility] | [phone] | | | | Transcribed | [address] | | | | | | [place], [place] | | | | | | [address] | | | +--------+ + + + [...] 12:00 AM PDTAssociated Order(s): TRANSTHORACIC ECHOCARDIOGRAM, ADULT RESEARCH [facility] DATE: 05/25/03 [place], [place] MED REC NO: [id number] NAME: TYRON RECIO ECHOCARDIOGRAPHY REPORT BIRTHDATE: [birth year] INDICATION FOR STUDY: AORTIC VALVE STENOSIS UNIT: [place] STUDY NO: [id number] TAPE NO. DIGITAL REQUEST [...] IN [place] ON 05/25/03 AND READ AT [facility] ON 05/28/03. 2. BICUSPID AORTIC VALVE [...] | Other, Faculty - 05/25/2003 12:00 AM [facility] DATE: | | 05/25/03 [place], [place] MED REC NO: [id number] NAME: TYRON RECIO | | ECHOCARDIOGRAPHY REPORT BIRTHDATE: [birth year] INDICATION FOR STUDY: AORTIC VALVE STENOSIS | | UNIT: [place] STUDY NO: [id number] TAPE NO. DIGITAL REQUEST [...] | 1. STUDY | | DONE IN [place] ON 05/25/03 AND READ AT [facility] ON 05/28/03. 2. BICUSPID AORTIC VALVE [...] | | | 1. STUDY DONE IN [place] ON 05/25/03 AND READ AT [facility] ON | | 05/28/03. | | [...]
--- OUTSIDE RECORDS SUMMARY | ~2019-12-09 | XMS | Encounter Summary ---
Demographics + + + | Address | [address] | | | [place] [address] | + + + | Home Phone | | + + + | Preferred Language | Unknown | + + + | Marital Status | Single | + + + | Samaritan Affiliation | PRO | + + + [...] [address], [place] | | | | | [address] | | + + + + + | Sergio Almita | FINN | [address] | | | | [address] | | | | | [address] | | + + + + + Care Team Providers + +------+ + | Care Field Aide Name | Role | Phone | [...] Clinic | | | | | | [facility], [address] | | | | | | [place], [place] | | | | | | [address] | | | | | | [phone] | | | +--------+ + + + [...] as of this encounter Progress Notes Interface, Conservation Or Heritage Architect In - 09/28/2006 3:11 AM PST CLINIC [...] Cardiology ABISAI/shana P cc: LATRICIA RODRIGUEZ MD [address] [place] [address] [place] [phone] documented in this encounter Plan of Treatment Not on filedocumented as of this encounter Visit Diagnoses Not on filedocumented in this encounter"
--- OUTSIDE RECORDS SUMMARY | ~2019-12-09 | XMS | Encounter Summary ---
Demographics + + + | Address | [address] | | | [place] [address] | + + + | Home Phone | | + + + | Preferred Language | Unknown | + + + | Marital Status | Single | + + + | Mandaeism Affiliation | PRO | + + + [...] [address], [place] | | | | | [address] | | + + + + + | Sergio Almita | FINN | [address] | | | | [address] | | | | | [address] | | + + + + + Care Team Providers + +------+ + | Care Assistant Paralegal Name | Role | Phone | + [...] Clinic | | | | | | [facility], [address] | | | | | | [place], [place] | | | | | | [address] | | | | | | [phone] | | | +--------+ + + + [...] as of this encounter Progress Notes Interface, Jack Frame Tender In - 11/24/2006 6:25 AM PDT CLINIC [...]
--- OUTSIDE RECORDS SUMMARY | ~2019-12-09 | XMS | Encounter Summary ---
Demographics + + + | Address | [address] | | | [place] [address] | + + + | Home Phone [...] [address], [place] | | | | | [address] | | + + + + + | Sergio Almita | FINN | [address] | | | | [address] | | | | | [address] | | + + + + + Care Team Providers + +------+ + | Care Records Tech Name | Role | Phone | + [...] as of this encounter Progress Notes Interface, Grader Green Meat In - 08/31/2006 3:06 AM PST CLINIC DATE: 03/07/98 [facility] [place] [place] SUBJECTIVE: Tyron is a 12-year-old with aortic [...] COATS MD [address] [place] [address] documented in this encounter Plan of Treatment Not on filedocumented as of this encounter Visit Diagnoses Not on filedocumented in this encounter"
--- OUTSIDE RECORDS SUMMARY | ~2019-12-09 | XMS | Encounter Summary ---
Demographics + + + | Address | [address] | | | [place] [address] | + + + | Home Phone [...] [address], [place] | | | | | [address] | | + + + + + | Sergio Almita | FINN | [address] | | | | [address] | | | | | [address] | | + + + + + Care Team Providers + +------+ + | Care Vp Global Name | Role | Phone | + [...] Anton | | | | | | [facility] | | | | | | [address] | | | | | | Anton | | | | | | [facility] | | | | | | 7th Floor [place], | | | | | | [place] [address] | | | | | | [phone] | | | +--------+ + + + [...]
--- OUTSIDE RECORDS SUMMARY | ~2019-12-09 | XMS | Encounter Summary ---
Demographics + + + | Address | [address] | | | [place] [address] | + + + | Home Phone [...] [address], [place] | | | | | [address] | | + + + + + | Sergio Almita | FINN | [address] | | | | [address] | | | | | [address] | | + + + + + Care Team Providers + +------+ + | Care Metal Room Dental Technician Name | Role | Phone | [...] TTE) | | 1998 | | [address] [facility] | [phone] | | | | Transcribed | [address] | | | | | | [place], [place] | | | | | | [address] | | | +--------+ + + + [...] ECHOCARDIOGRAM, ADULT DATE: 03/06/99 MED REC NO: [id number] NAME: TYRON RECIO ECHOCARDIOGRAPHY REPORT BIRTHDATE: [birth year] CARDIAC QUERY: AORTIC STENOSIS UNIT: [place] STUDY NO: [id number] TAPE NO. [id number] REF. [...] REVIEW OF THIS STUDY WITH THE STAFF COOK AT SCHOOL. documented in this encou nter Plan of [...] DATE: 03/06/99 | | MED REC NO: [id number] | | NAME: TYRON RECIO | | [...] REVIEW OF THIS STUDY WITH THE STAFF COOK AT SCHOOL. | | | | | + + documented in this encounter Visit Diagnoses Not on filedocumented in this encounter"
[~2019-12-09 09:02] MED LIST changes: +BACTRIM DS TAB1 EACH PO
--- OUTSIDE RECORDS SUMMARY | 2019-12-09 09:06 | XMS ---
PreManage Notification: SONDRA EMMANUEL Security Automotive Welder Events No recent Security Events currently on file CRITERIA MET - [facility] - Has Care Guidelines - PDMP - [facility] - 2 Visits in 30 Days CARE PROVIDERS AGUSTINA OSEI Family Medicine 12/04/2019-Current PHONE: [phone] Name Unknown Clinic/Center: Primary Care 12/04/2019-Current PHONE: [phone] Makeda has no Care Guidelines for this patient. Care History Medical/Surgical 12/04/2019 [facility] - PATIENT WAS LAST SEEN BY [facility] -PCP OFFICE ON 2019 Antonia VISIT COUNT (12 MO.) 3 LORNA Abebe TOTAL 3 NOTE: Visits indicate total known visits. ED/UCC VISIT TRACKING (12 MO.) 12/09/2019 09:03 [facility] [place] TYPE: Emergency COMPLAINT: - SKIN PROBLEM 12/04/2019 08:56 [facility] [place] TYPE: Emergency COMPLAINT: - POSS ABSCESS DIAGNOSES: - Nicotine dependence, unspecified, uncomplicated - Cutaneous abscess of groin - Unilateral inguinal hernia, without obstruction or gangrene, - Cutaneous abscess of groin 02/23/2019 08:[address] [facility] [place] TYPE: Emergency COMPLAINT: - BILATE KIDNEY PAIN DIAGNOSES: - Dysuria - Urinary tract infection, site not specified - Nicotine dependence, unspecified, uncomplicated INPATIENT VISIT TRACKING (12 MO.) No inpatient visits to display in this time frame [id number]
== END 2019-12-09 10:38 | disposition home or self-care (01) ==
LOC: ED 09:02
DX: L02.214 Cutaneous abscess of groin (principal); F17.200 Nicotine dependence, unspecified, uncomplicated; Z79.899 Other long term (current) drug therapy
CPT/HCPCS: 10060; 99283-25; J1885

== ENCOUNTER 2020-03-28 12:23 | Emergency (ER) | payer OTHER ==
[~2020-03-28] VITALS: Ht 182.9 cm; Wt 68.0 kg
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
--- OUTSIDE RECORDS SUMMARY | ~2020-03-28 | XMS | Encounter Summary ---
Demographics + + + | Address | [address] | | | [place] [address] | + + + | Home Phone | | + + + | Preferred Language | Unknown | + + + | Marital Status | Single | + + + | Yarsanism Affiliation | PRO | + + + | Race | White | + + + | Ethnic Group | Not or | + + + Author + + + | Author | [facility] | + + + | Organization | [facility] | + + + | Address | Unknown | + + + | Phone | Unavailable | + + + Support + + + + + | Name | Relationship | Address | Phone | + + + + + | Candice Recio | FINN | [address] | | | | | [address], [place] | | | | | [address] | | + + + + + | Sergio Almita | ECON | [address] | | | | [address], [place] | | | | | [address] | | + + + + + Care Team Providers + +------+ + | Care Mail Carrier And Clerk Name | Role | Phone | + +------+ + | Floyd Mcgee MD | PCP | | + +------+ + Reason for Visit +--------+ + | Reason | Comments | +--------+ + | Other | | +--------+ + Encounter Details +--------+ + + + + | Date | Type | Department | Care Team | Description | +--------+ + + + + | 12/12/ | Telephone | Pediatric | Tahir Piedra, | Other | | 2008 | | Cardiology at | MD | | | | | [place] [address] | | | | | | [address] | | | | | | Pediatric | | | | | | [facility] | | | | | | [place], [place] | | | | | | [address] | | | | | | [phone] | | | +--------+ + + + [...] as of this encounter Plan of Treatment Not on filedocumented as of this encounter Visit Diagnoses Not on filedocumented in this encounter"
--- OUTSIDE RECORDS SUMMARY | ~2020-03-28 | XMS | Encounter Summary ---
Demographics + + + | Address | [address] | | | [place] [address] | + + + | Home Phone | | + + + | Preferred Language | Unknown | + + + | Marital Status | Single | + + + | Advent Affiliation | PRO | + + + | Race | White | + + + | Ethnic Group | Not or | + + + Author + + + | Author | [facility] | + + + | Organization | [facility] | + + + | Address | Unknown | + + + | Phone | Unavailable | + + + Support + + + + + | Name | Relationship | Address | Phone | + + + + + | Candice Recio | FINN | [address] | | | | | [address], [place] | | | | | [address] | | + + + + + | Sergio Almita | FINN | [address] | | | | [address] | | | | | [address] | | + + + + + Care Team Providers + +------+ + | Care Granulator Machine Operator Name | Role | Phone | + +------+ + | Floyd Mcgee MD | PCP | | + +------+ + Encounter Details +--------+ + + + + | Date | Type | Department | Care Team | Description | +--------+ + + + + | 05/20/ | Bellows Assembler | Pediatric | Tahir Piedra, | 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
--- OUTSIDE RECORDS SUMMARY | ~2020-03-28 | XMS | Encounter Summary ---
Demographics + + + | Address | [address] | | | [place] [address] | + + + | Home Phone | | + + + | Preferred Language | Unknown | + + + | Marital Status | Single | + + + | Buddhism Affiliation | PRO | + + + | Race | White | + + + | Ethnic Group | Not or | + + + Author + + + | Author | [facility] | + + + | Organization | [facility] | + + + | Address | Unknown | + + + | Phone | Unavailable | + + + Support + + + + + | Name | Relationship | Address | Phone | + + + + + | Candice Recio | FINN | [address] | | | | | [address], [place] | | | | | [address] | | + + + + + | Sergio Almita | FINN | [address] | | | | [address] [place] | | | | | [address] | | + + + + + Care Team Providers + +------+ + | Care Composite Technician Name | Role | Phone | + +------+ + | Floyd Mcgee MD | PCP | | + +------+ + Encounter Details +--------+ + + + + | Date | Type | Department | Care Team | Description | +--------+ + + + + | 05/31/ | Office | Pediatric | Tahir Piedra, | | | 2006 | Visit-ECX | Cardiology at | MD | | | | | [place] [address] | | | | | | [address] | | | | | | Pediatric | | | | | | [facility] | | | | | | [place], [place] | | | | | | [address] | | | | | | [phone] | | | +--------+ + + + [...] + + documented as of this encounter Last Filed Vital Signs + + + + + | Vital Sign | Reading | Time Taken | Comments | + + + + + | Blood Pressure | 126/80 | 06/02/2007 2:18 PM | | | | | PDT | | + + + + + | Pulse | 56 | 06/02/2007 2:18 PM | | | | | PDT | | + + + + + | Temperature | - | - | | + + + + + | Respiratory Rate | 16 | 06/02/2007 2:18 PM | | | | | PDT | | + + + + + | Oxygen Saturation | 100% | 06/02/2007 2:18 PM | | | | | PDT | | + + + + + | Inhaled Oxygen | - | - | | | Concentration | | | | + + + + + | Weight | 61.7 kg (136 lb) | 06/02/2007 2:18 PM | | | | | PDT | | + + + + + | Height | 180.3 cm (5' 11") | 06/02/2007 2:18 PM | | | | | PDT | | + + + + + | Body Mass Index | 18.97 | 06/02/2007 2:18 PM | | | | | PDT | | + + + + + documented in this encounter Plan of Treatment Not on filedocumented as of this encounter Visit Diagnoses Not on filedocumented in this encounter
--- OUTSIDE RECORDS SUMMARY | ~2020-03-28 | XMS | Encounter Summary ---
Demographics + + + | Address | [address] | | | [place] [address] | + + + | Home Phone | | + + + | Preferred Language | Unknown | + + + | Marital Status | Single | + + + | Methodist Affiliation | PRO | + + + [...] [address], [place] | | | | | [address] | | + + + + + | Sergio Almita | FINN | [address] | | | | [address] | | | | | [address] | | + + + + + Care Team Providers + +------+ + | Care Guide Delegate Name | Role | Phone | + [...] as of this encounter Progress Notes Interface, House Detective In - 08/31/2006 3:06 AM PST CLINIC DATE: 03/07/98 [facility] - [place] SUBJECTIVE: Tyron is a 12-year-old with aortic [...] COATS MD [address] [place] [address] documented in this encounter Plan of Treatment Not on filedocumented as of this encounter Visit Diagnoses Not on filedocumented in this encounter"
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
--- OUTSIDE RECORDS SUMMARY | ~2020-03-28 | XMS | Encounter Summary ---
Demographics + + + | Address | [address] | | | [place] [address] | + + + | Home Phone | | + + + | Preferred Language | Unknown | + + + | Marital Status | Single | + + + | Sikh Affiliation | PRO | + + + | Race | White | + + + | Ethnic Group | Not or | + + + Author + + + | Author | [facility] | + + + | Organization | [facility] | + + + | Address | Unknown | + + + | Phone | Unavailable | + + + Support + + + + + | Name | Relationship | Address | Phone | + + + + + | Candice Recio | FINN | [address] | | | | | [address], [place] | | | | | [address] | | + + + + + | Sergio Almtia | FINN | [address] | | | | [address] | | | | | [address] | | + + + + + Care Team Providers + +------+ + | Care English Language Learner Teacher Name | Role | Phone | + +------+ + | Floyd Mcgee MD | PCP | | + +------+ + Encounter Details +--------+ + + + + | Date | Type | Department | Care Team | Description | +--------+ + + + + | 05/27/ | Ancillary | Registration [id number] | [address], | | | 2006 | Registratio | [address] | | | | | [place] | [place] Mailcode: [id number] | | | | | | [place], [place] | | | | | | [address] | | | | | | [phone] | | | +--------+ + + + [...]
--- OUTSIDE RECORDS SUMMARY | ~2020-03-28 | XMS | Encounter Summary ---
Demographics + + + | Address | [address] | | | [place] [address] | + + + | Home Phone [...] Author + + + | Author | [facility] | + + + | Organization | [facility] | + + + | Address | Unknown | + + + | Phone | Unavailable | + + + Support + + + + + | Name | Relationship | Address | Phone | + + + + + | Cadnice Recio | FINN | [address] | | | | | [address], [place] | | | | | [address] | | + + + + + | Sergio Almita | FINN | [address] | | | | [address] | | | | | [address] | | + + + + + Care Team Providers + +------+ + | Care Market Risk Analyst Name | Role | Phone | + [...] [id number] | | | | | | [place], [place] | | | | | | [address] | | | | | | [phone] | | | +--------+ + + + [...]
--- OUTSIDE RECORDS SUMMARY | ~2020-03-28 | XMS | Encounter Summary ---
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 Extrem | 04/26/2008 | | Results for this | | BLOOD | e | 2:23 AM | | procedure are in the | | | Emerge | PDT | | results section. | | | ncy | | | | + +--------+ + + + documented in this encounter Results RESP CARE THERAPY (04/27/2008 2:41 AM PDT) + + + + + + | Component | Value | Ref Range | Performed | Pathologist | | | | | At | Signature | + + + + + + | RESPIRATORY | Nasal cannula at 2 | | [facility] | | | CARE | LPM.Electronically | | RESPIRATORY | | | | Signed by: Bailee | | THERAPY | | | | SIA Ward | | | | + + + + + + + + | Specimen | + + | | + + + + + | Narrative | Performed At | + + + | Ordered by an unspecified provider. | [facility] | | | RESPIRATORY | | | THERAPY | + + + + + + + + | Performing | Address | City/State/Zipcode | Phone Number | | Organization | | | | + + + + + | [facility] | [address] | [place], [place] | | | THERAPY | [address] | [address] | | + + + + + | [facility] | [address] | [place], [place] | | | THERAPY | [address] | [address] | | + + + + + BASIC METABOLIC SET (NA, K, CL, TCO2, BUN, CR, GLU, CA) (04/27/2008 2:30 AM PDT) + +---------+ + + + | Component | Value | Ref Range | Performed | Pathologist | | | | | At | Signature | + +---------+ + + + | GLUCOSE, | 388 (H) | 60 - 99 mg/dL | [facility] | | | PLASMA | | | DEPARTMENT | | | (LAB) | | | OF | | | | | | PATHOLOGY | | + +---------+ + + + | BUN, PLASMA | 5 (L) | 6 - 20 mg/dL | [facility] | | | (LAB) | | | DEPARTMENT | | | | | | OF | | | | | | PATHOLOGY | | + +---------+ + + + | CREATININE | 0.74 | 0.70 - 1.30 | [facility] | | | PLASMA | | mg/dL | DEPARTMENT | | | (LAB) | | | OF | | | | | | PATHOLOGY | | + +---------+ + + + | SODIUM, | 141 | 134 - 143 | [facility] | | | PLASMA | | mmol/L | DEPARTMENT | | | (LAB) | | | OF | | | | | | PATHOLOGY | | + +---------+ + + + | POTASSIUM, | 3.3 (L) | 3.4 - 5.0 | [facility] | | | PLASMA | | mmol/L | DEPARTMENT | | | (LAB) | | | OF | | | | | | PATHOLOGY | | + +---------+ + + + | CHLORIDE, | 109 (H) | 97 - 108 mmol/L | [facility] | | | PLASMA | | | DEPARTMENT | | | (LAB) | | | OF | | | | | | PATHOLOGY | | + +---------+ + + + | TOTAL CO2, | 26 | 23 - 31 mmol/L | [facility] | | | PLASMA | | | DEPARTMENT | | | (LAB) | | | OF | | | | | | PATHOLOGY | | + +---------+ + + + | CALCIUM, | 8.0 (L) | 8.6 - 10.2 | [facility] | | | PLASMA | | mg/dL | DEPARTMENT | | | (LAB) | | | OF | | | | | | PATHOLOGY | | + +---------+ + + + + + | Specimen | + + | Blood - Blood | + + + + + | Narrative | Performed At | + + + | New Creatinine Reference ranges effective 08. | [facility] | | | DEPARTMENT OF | | | PATHOLOGY | + + + + + + + + | Performing | Address | City/State/Zipcode | Phone Number | | Organization | | | | + + + + + | [facility] | [address] | [place] [address] | | | PATHOLOGY | [address] | | | + + + + + | [facility] | [address] | [place] [address] | | | PATHOLOGY | [address] | | | + + + + + BASIC METABOLIC SET (NA, K, CL, TCO2, BUN, CR, GLU, CA) (04/26/2008 1:05 PM PDT) + +---------+ + + + | Component | Value | Ref Range | Performed | Pathologist | | | | | At | Signature | + +---------+ + + + | GLUCOSE, | 153 (H) | 60 - 99 mg/dL | [facility] | | | PLASMA | | | DEPARTMENT | | | (LAB) | | | OF | | | | | | PATHOLOGY | | + +---------+ + + + | BUN, PLASMA | 7 | 6 - 20 mg/dL | [facility] | | | (LAB) | | | DEPARTMENT | | | | | | OF | | | | | | PATHOLOGY | | + +---------+ + + + | CREATININE | 0.76 | 0.70 - 1.30 | [facility] | | | PLASMA | | mg/dL | DEPARTMENT | | | (LAB) | | | OF | | | | | | PATHOLOGY | | + +---------+ + + + | SODIUM, | 139 | 134 - 143 | [facility] | | | PLASMA | | mmol/L | DEPARTMENT | | | (LAB) | | | OF | | | | | | PATHOLOGY | | + +---------+ + + + | POTASSIUM, | 4.2 | 3.4 - 5.0 | [facility] | | | PLASMA | | mmol/L | DEPARTMENT | | | (LAB) | | | OF | | | | | | PATHOLOGY | | + +---------+ + + + | CHLORIDE, | 102 | 97 - 108 mmol/L | [facility] | | | PLASMA | | | DEPARTMENT | | | (LAB) | | | OF | | | | | | PATHOLOGY | | + +---------+ + + + | TOTAL CO2, | 27 | 23 - 31 mmol/L | [facility] | | | PLASMA | | | DEPARTMENT | | | (LAB) | | | OF | | | | | | PATHOLOGY | | + +---------+ + + + | CALCIUM, | 8.6 | 8.6 - 10.2 | [facility] | | | PLASMA | | mg/dL | DEPARTMENT | | | (LAB) | | | OF | | | | | | PATHOLOGY | | + +---------+ + + + + + | Specimen | + + | Blood - Blood | + + + + + | Narrative | Performed At | + + + | New Creatinine Reference ranges effective 08. | [facility] | | | DEPARTMENT OF | | | PATHOLOGY | + + + + + + + + | Performing | Address | City/State/Zipcode | Phone Number | | Organization | | | | + + + + + | [facility] | [address] [facility] [address] [address] | [place] [address] | | | PATHOLOGY | [address] | | | + + + + + | [facility] | [address] [facility] [address] | [place] [address] | | | PATHOLOGY | [address] | | | + + + + + BASIC METABOLIC SET (NA, K, CL, TCO2, BUN, CR, GLU, CA) (04/26/2008 8:15 AM PDT) + + + + + + | Component | Value | Ref Range | Performed | Pathologist | | | | | At | Signature | + + + + + + | GLUCOSE, | Spc unsat | 60 - 99 mg/dL | [facility] | | | PLASMA | | | DEPARTMENT | | | (LAB) | | | OF | | | | | | PATHOLOGY | | + + + + + + | BUN, PLASMA | Spc unsat | 6 - 20 mg/dL | [facility] | | | (LAB) | | | DEPARTMENT | | | | | | OF | | | | | | PATHOLOGY | | + + + + + + | CREATININE | Spc unsat | 0.70 - 1.30 | [facility] | | | PLASMA | | mg/dL | DEPARTMENT | | | (LAB) | | | OF | | | | | | PATHOLOGY | | + + + + + + | SODIUM, | Spc unsat | 134 - 143 | [facility] | | | PLASMA | | mmol/L | DEPARTMENT | | | (LAB) | | | OF | | | | | | PATHOLOGY | | + + + + + + | POTASSIUM, | Spc unsat | 3.4 - 5.0 | [facility] | | | PLASMA | | mmol/L | DEPARTMENT | | | (LAB) | | | OF | | | | | | PATHOLOGY | | + + + + + + | CHLORIDE, | Spc unsat | 97 - 108 mmol/L | [facility] | | | PLASMA | | | DEPARTMENT | | | (LAB) | | | OF | | | | | | PATHOLOGY | | + + + + + + | TOTAL CO2, | Spc unsat | 23 - 31 mmol/L | [facility] | | | PLASMA | | | DEPARTMENT | | | (LAB) | | | OF | | | | | | PATHOLOGY | | + + + + + + | CALCIUM, | Spc unsat | 8.6 - 10.2 | [facility] | | | PLASMA | | mg/dL | DEPARTMENT | | | (LAB) | | | OF | | | | | | PATHOLOGY | | + + + + + + + + | Specimen | + + | Blood - Blood | + + + + + | Narrative | Performed At | + + + | New Creatinine Reference ranges effective 08. | [facility] | | Specimen unsatisfactory; suspected contamination. | DEPARTMENT OF | | | PATHOLOGY | + + + + + + + + | Performing | Address | City/State/Zipcode | Phone Number | | Organization | | | | + + + + + | [facility] | [address] | [place] [address] | | | PATHOLOGY | [address] | | | + + + + + | [facility] | [address] [facility] | [place] [address] | | | PATHOLOGY | [address] | | | + + + + + INR (04/26/2008 3:22 AM PDT) + + + + + + | Component | Value | Ref Range | Performed | Pathologist | | | | | At | Signature | + + + + + + | INR | Not Recd | 0.90 - 1.20 INR | [facility] | | | | | | DEPARTMENT | | | | | | OF | | | | | | PATHOLOGY | | + + + + + + + + | Specimen | + + | Blood - Blood | + + + + + + + | Performing | Address | City/State/Zipcode | Phone Number | | Organization | | | | + + + + + | [facility] | [address] | [place] [address] | | | PATHOLOGY | [address] | | | + + + + + | [facility] | [address] | [place] [address] | | | PATHOLOGY | [address] | | | + + + + + 12 LEAD ECG (04/26/2008 3:07 AM PDT) + + + + + + | Component | Value | Ref Range | Performed | Pathologist | | | | | At | Signature | + + + + + + | VENTRICULAR | 57 | BPM | [facility] | | | RATE | | | OF | | | | | | CARDIOLOGY | | + + + + + + | ATRIAL RATE | 57 | BPM | [facility] | | | | | | OF | | | | | | CARDIOLOGY | | + + + + + + | P-R | 120 | ms | [facility] | | | INTERVAL | | | OF | | | | | | CARDIOLOGY | | + + + + + + | QRS | 84 | ms | [facility] | | | DURATION | | | OF | | | | | | CARDIOLOGY | | + + + + + + | QT | 416 | ms | [facility] | | | | | | OF | | | | | | CARDIOLOGY | | + + + + + + | QTC | 405 | ms | [facility] | | | | | | OF | | | | | | CARDIOLOGY | | + + + + + + | P AXIS | 73 | degrees | [facility] | | | | | | OF | | | | | | CARDIOLOGY | | + + + + + + | R AXIS | 83 | degrees | [facility] | | | | | | OF | | | | | | CARDIOLOGY | | + + + + + + | T AXIS | 80 | degrees | [facility] | | | | | | OF | | | | | | CARDIOLOGY | | + + + + + + | EKG | Sinus | | [facility] | | | DIAGNOSIS | bradycardiaOtherwise | | OF | | | | normal ECG"I have | | CARDIOLOGY | | | | personally interpreted | | | | | | this report, either | | | | | | alone or with a | | | | | | trainee."Confirmed by | | | | | | SULEMA COLLAZO ([id number]) on | | | | | | 26-Apr-2008 15:27:20 | | | | + + + + + + | LINK TO | | | [facility] | | | [employer] | | | OF | | | (ECG | | | CARDIOLOGY | | | VIEWER) | | | | | + + + + + + + + | Specimen | + + | | + + + + + | Narrative | Performed At | + + + | Please click | [facility] OF | | on view image for the detailed interpretation from [employer] results. | CARDIOLOGY | | | | + + + + + + + + | Performing | Address | City/State/Zipcode | Phone Number | | Organization | | | | + + + + + | [facility] | [address] | [place], [place] | | | CARDIOLOGY | [address] | [address] | | + + + + + | [facility] | [address] | [place], [place] | | | CARDIOLOGY | [address] | [address] | | + + + + + CBC ONLY (04/26/2008 3:03 AM PDT) + + + + + + | Component | Value | Ref Range | Performed | Pathologist | | | | | At | Signature | + + + + + + | WHITE CELL | Not Recd | 4.4 - 11.0 K/cu | [facility] | | | COUNT | | mm | DEPARTMENT | | | | | | OF | | | | | | PATHOLOGY | | + + + + + + | RED CELL | Not Recd | 4.50 - 5.90 | [facility] | | | COUNT | | M/cu mm | DEPARTMENT | | | | | | OF | | | | | | PATHOLOGY | | + + + + + + | HEMOGLOBIN | Not Recd | 13.5 - 17.5 | [facility] | | | | | g/dL | DEPARTMENT | | | | | | OF | | | | | | PATHOLOGY | | + + + + + + | HEMATOCRIT | Not Recd | 41.0 - 53.0 % | [facility] | | | | | | DEPARTMENT | | | | | | OF | | | | | | PATHOLOGY | | + + + + + + | MCV | Not Recd | 80.0 - 96.0 fL | [facility] | | | | | | DEPARTMENT | | | | | | OF | | | | | | PATHOLOGY | | + + + + + + | MCHC | Not Recd | 33.4 - 35.5 | [facility] | | | | | g/dL | DEPARTMENT | | | | | | OF | | | | | | PATHOLOGY | | + + + + + + | RDW | Not Recd | 11.5 - 15.0 % | [facility] | | | | | | DEPARTMENT | | | | | | OF | | | | | | PATHOLOGY | | + + + + + + | PLATELET | Not Recd | 150 - 400 K/cu | [facility] | | | COUNT | | mm | DEPARTMENT | | | | | | OF | | | | | | PATHOLOGY | | + + + + + + + + | Specimen | + + | Blood - Blood | + + + + + + + | Performing | Address | City/State/Zipcode | Phone Number | | Organization | | | | + + + + + | [facility] | [address] | [place] [address] | | | PATHOLOGY | [address] | | | + + + + + | [facility] | [address] | [place] [address] | | | PATHOLOGY | [address] | | | + + + + + COAGULOPATHY PANEL (INR,APTT,FIBRINOGEN) (04/26/2008 3:03 AM PDT) + + + + + + | Component | Value | Ref Range | Performed | Pathologist | | | | | At | Signature | + + + + + + | INR | Not Recd | 0.90 - 1.20 INR | [facility] | | | | | | DEPARTMENT | | | | | | OF | | | | | | PATHOLOGY | | + + + + + + | APTT | Not Recd | 26.0 - 36.0 | [facility] | | | | | seconds | DEPARTMENT | | | | | | OF | | | | | | PATHOLOGY | | + + + + + + | FIBRINOGEN | Not Recd | 200 - 450 mg/dL | [facility] | | | LEVEL | | | DEPARTMENT | | | | | | OF | | | | | | PATHOLOGY | | + + + + + + + + | Specimen | + + | Blood - Blood | + + + + + + + | Performing | Address | City/State/Zipcode | Phone Number | | Organization | | | | + + + + + | [facility] | [address] | [place] [address] | | | PATHOLOGY | [address] | | | + + + + + | [facility] | [address] | [place] [address] | | | PATHOLOGY | [address] | | | + + + + + BASIC METABOLIC SET (NA, K, CL, TCO2, BUN, CR, GLU, CA) (04/26/2008 3:03 AM PDT) + + + + + + | Component | Value | Ref Range | Performed | Pathologist | | | | | At | Signature | + + + + + + | GLUCOSE, | Combined. | 60 - 99 mg/dL | [facility] | | | PLASMA | | | DEPARTMENT | | | (LAB) | | | OF | | | | | | PATHOLOGY | | + + + + + + | BUN, PLASMA | Combined. | 6 - 20 mg/dL | [facility] | | | (LAB) | | | DEPARTMENT | | | | | | OF | | | | | | PATHOLOGY | | + + + + + + | CREATININE | Combined. | 0.70 - 1.30 | [facility] | | | PLASMA | | mg/dL | DEPARTMENT | | | (LAB) | | | OF | | | | | | PATHOLOGY | | + + + + + + | SODIUM, | Combined. | 134 - 143 | [facility] | | | PLASMA | | mmol/L | DEPARTMENT | | | (LAB) | | | OF | | | | | | PATHOLOGY | | + + + + + + | POTASSIUM, | Combined. | 3.4 - 5.0 | [facility] | | | PLASMA | | mmol/L | DEPARTMENT | | | (LAB) | | | OF | | | | | | PATHOLOGY | | + + + + + + | CHLORIDE, | Combined. | 97 - 108 mmol/L | [facility] | | | PLASMA | | | DEPARTMENT | | | (LAB) | | | OF | | | | | | PATHOLOGY | | + + + + + + | TOTAL CO2, | Combined. | 23 - 31 mmol/L | [facility] | | | PLASMA | | | DEPARTMENT | | | (LAB) | | | OF | | | | | | PATHOLOGY | | + + + + + + | CALCIUM, | Combined. | 8.6 - 10.2 | [facility] | | | PLASMA | | mg/dL | DEPARTMENT | | | (LAB) | | | OF | | | | | | PATHOLOGY | | + + + + + + + + | Specimen | + + | Blood - Blood | + + + + + | Narrative | Performed At | + + + | New Creatinine Reference ranges effective 08. | [facility] | | Combined with request same date/time. | DEPARTMENT OF | | | PATHOLOGY | + + + + + + + + | Performing | Address | City/State/Zipcode | Phone Number | | Organization | | | | + + + + + | [facility] | [address] | [place] [address] | | | PATHOLOGY | [address] | | | + + + + + | [facility] | [address] | [place] [address] | | | PATHOLOGY | [address] | | | + + + + + X-RAY PORTABLE CHEST 1 VIEW (04/26/2008 2:48 AM PDT) + + + + + + | Component | Value | Ref Range | Performed | Pathologist | | | | | At | Signature | + + + + + + | X-RAY | STUDY: AP chest | | | | | PORTABLE | 04/26/08COMPARISON: | | | | | CHEST 1 | None.FINDINGS:There is | | | | | VIEW | an endotracheal tube | | | | | | with its tip 1.5 cm | | | | | | above the brittany.Hazy | | | | | | increased opacification | | | | | | is noted within both | | | | | | upper lobes. Thereis | | | | | | elevation of the minor | | | | | | fissure on the right. | | | | | | The remaining | | | | | | lungzones are clear. | | | | | | There is no pleural | | | | | | effusion or | | | | | | pneumothorax. | | | | | | Thecardiac and | | | | | | mediastinal borders are | | | | | | normal. No rib | | | | | | fracture orosseous | | | | | | abnormalities | | | | | | detected.IMPRESSION:Bila | | | | | | teral upper lobe hazy | | | | | | opacity most compatible | | | | | | with mildatelectasis. | | | | | | Otherwise no active | | | | | | cardiopulmonary | | | | | | disease.I have | | | | | | personally viewed this | | | | | | procedure/exam and | | | | | | reviewed this | | | | | | report.STATUS FINAL / | | | | | | Dr. ALFA ALEXIS | | | | + + + + + + + + | Specimen | + + | | + + + +---------+ + + | Performing | Address | City/State/Zipcode | Phone Number | | Organization | | | | + +---------+ + + | [facility] | | | | | RADIOLOGY | | | | + +---------+ + + CBC ONLY (04/26/2008 2:23 AM PDT) + + + + + + | Component | Value | Ref Range | Performed | Pathologist | | | | | At | Signature | + + + + + + | WHITE CELL | 11.4 (H) | 4.4 - 11.0 K/cu | [facility] | | | COUNT | | mm | DEPARTMENT | | | | | | OF | | | | | | PATHOLOGY | | + + + + + + | RED CELL | 4.51 | 4.50 - 5.90 | [facility] | | | COUNT | | M/cu mm | DEPARTMENT | | | | | | OF | | | | | | PATHOLOGY | | + + + + + + | HEMOGLOBIN | 14.8 | 13.5 - 17.5 | [facility] | | | | | g/dL | DEPARTMENT | | | | | | OF | | | | | | PATHOLOGY | | + + + + + + | HEMATOCRIT | 43.8 | 41.0 - 53.0 % | [facility] | | | | | | DEPARTMENT | | | | | | OF | | | | | | PATHOLOGY | | + + + + + + | MCV | 97.0 (H) | 80.0 - 96.0 fL | [facility] | | | | | | DEPARTMENT | | | | | | OF | | | | | | PATHOLOGY | | + + + + + + | MCHC | 33.8 | 33.4 - 35.5 | [facility] | | | | | g/dL | DEPARTMENT | | | | | | OF | | | | | | PATHOLOGY | | + + + + + + | RDW | 13.3 | 11.5 - 15.0 % | [facility] | | | | | | DEPARTMENT | | | | | | OF | | | | | | PATHOLOGY | | + + + + + + | PLATELET | 162 | 150 - 400 K/cu | [facility] | | | COUNT | | mm | DEPARTMENT | | | | | | OF | | | | | | PATHOLOGY | | + + + + + + + + | Specimen | + + | Blood - Blood | + + + + + + + | Performing | Address | City/State/Zipcode | Phone Number | | Organization | | | | + + + + + | [facility] | [facility] [address] [address] | [place] [address] | | | PATHOLOGY | [address] | | | + + + + + | [facility] | [address] [place] [address] | [place] [address] | | | PATHOLOGY | [address] | | | + + + + + COAGULOPATHY PANEL (INR,APTT,FIBRINOGEN) (04/26/2008 2:23 AM PDT) + + + + + + | Component | Value | Ref Range | Performed | Pathologist | | | | | At | Signature | + + + + + + | INR | Imp ratio | 0.90 - 1.20 INR | [facility] | | | | | | DEPARTMENT | | | | | | OF | | | | | | PATHOLOGY | | + + + + + + | APTT | Imp ratio | 26.0 - 36.0 | [facility] | | | | | seconds | DEPARTMENT | | | | | | OF | | | | | | PATHOLOGY | | + + + + + + | FIBRINOGEN | Imp ratio | 200 - 450 mg/dL | [facility] | | | LEVEL | | | DEPARTMENT | | | | | | OF | | | | | | PATHOLOGY | | + + + + + + + + | Specimen | + + | Blood - Blood | + + + + + + + | Performing | Address | City/State/Zipcode | Phone Number | | Organization | | | | + + + + + | [facility] | [address] [address] | [place] [address] | | | PATHOLOGY | [address] | | | + + + + + | [facility] | [address] [facility] [address] [address] | [place] [address] | | | PATHOLOGY | [address] | | | + + + + + ALCOHOL SCREEN, SERUM (04/26/2008 2:23 AM PDT) + + + + + + | Component | Value | Ref Range | Performed | Pathologist | | | | | At | Signature | + + + + + + | ETHANOL | Negative | mg/dL | [facility] | | | (ALCOHOL) | | | DEPARTMENT | | | | | | OF | | | | | | PATHOLOGY | | + + + + + + + + | Specimen | + + | Blood - Blood | + + + + + + + | Performing | Address | City/State/Zipcode | Phone Number | | Organization | | | | + + + + + | [facility] | [address] | [place] [address] | | | PATHOLOGY | [address] | | | + + + + + | [facility] | [address] | [place] [address] | | | PATHOLOGY | [address] | | | + + + + + BASIC METABOLIC SET (NA, K, CL, TCO2, BUN, CR, GLU, CA) (04/26/2008 2:23 AM PDT) + +---------+ + + + | Component | Value | Ref Range | Performed | Pathologist | | | | | At | Signature | + +---------+ + + + | GLUCOSE, | 145 (H) | 60 - 99 mg/dL | [facility] | | | PLASMA | | | DEPARTMENT | | | (LAB) | | | OF | | | | | | PATHOLOGY | | + +---------+ + + + | BUN, PLASMA | 7 | 6 - 20 mg/dL | [facility] | | | (LAB) | | | DEPARTMENT | | | | | | OF | | | | | | PATHOLOGY | | + +---------+ + + + | CREATININE | 0.86 | 0.70 - 1.30 | [facility] | | | PLASMA | | mg/dL | DEPARTMENT | | | (LAB) | | | OF | | | | | | PATHOLOGY | | + +---------+ + + + | SODIUM, | 137 | 134 - 143 | [facility] | | | PLASMA | | mmol/L | DEPARTMENT | | | (LAB) | | | OF | | | | | | PATHOLOGY | | + +---------+ + + + | POTASSIUM, | 5.2 (H) | 3.4 - 5.0 | [facility] | | | PLASMA | | mmol/L | DEPARTMENT | | | (LAB) | | | OF | | | | | | PATHOLOGY | | + +---------+ + + + | CHLORIDE, | 103 | 97 - 108 mmol/L | [facility] | | | PLASMA | | | DEPARTMENT | | | (LAB) | | | OF | | | | | | PATHOLOGY | | + +---------+ + + + | TOTAL CO2, | 25 | 23 - 31 mmol/L | [facility] | | | PLASMA | | | DEPARTMENT | | | (LAB) | | | OF | | | | | | PATHOLOGY | | + +---------+ + + + | CALCIUM, | 8.7 | 8.6 - 10.2 | [facility] | | | PLASMA | | mg/dL | DEPARTMENT | | | (LAB) | | | OF | | | | | | PATHOLOGY | | + +---------+ + + + + + | Specimen | + + | Blood - Blood | + + + + + | Narrative | Performed At | + + + | New Creatinine Reference ranges effective 08. | [facility] | | | DEPARTMENT OF | | | PATHOLOGY | + + + + + + + + | Performing | Address | City/State/Zipcode | Phone Number | | Organization | | | | + + + + + | [facility] | [address] [address] | [place] [address] | | | PATHOLOGY | [address] | | | + + + + + | [facility] | [address] | [place] [address] | | | PATHOLOGY | [address] | | | + + + + + TYPE AND SCREEN (04/26/2008 2:23 AM PDT) + + + + + + | Component | Value | Ref Range | Performed | Pathologist | | | | | At | Signature | + + + + + + | ABO GROUP | O | | [facility] | | | | | | DEPARTMENT | | | | | | OF | | | | | | PATHOLOGY | | + + + + + + | RH TYPE | Positive | | [facility] | | | | | | DEPARTMENT | | | | | | OF | | | | | | PATHOLOGY | | + + + + + + | Antibody | Negative | | [facility] | | | Screen | | | DEPARTMENT | | | | | | OF | | | | | | PATHOLOGY | | + + + + + + + + | Specimen | + + | Blood - Blood | + + + + + + + | Performing | Address | City/State/Zipcode | Phone Number | | Organization | | | | + + + + + | [facility] | [address] [place] [address] | [place] [address] | | | PATHOLOGY | [address] | | | + + + + + | [facility] DEPARTMENT [facility] | [facility] | [place] [address] | | | PATHOLOGY | [address] | | | + + + + + documented in this encounter Visit Diagnoses + + | Diagnosis | + + | Facial bones, closed fracture (HCC) Other facial bones, closed fracture | + + | Pneumocephalus Other conditions of brain | + + documented in this encounter Administered Medications + +--------+ +--------+------+------+ | Medication Order | MAR | Action | Dose | Rate | Site | | | Action | Date | | | | + +--------+ +--------+------+------+ | acetaminophen (aka TYLENOL) | Given | 04/27/20 | 650 mg | | | | tablet 650 mg 650 mg, oral, | | 08 8:28 | | | | | EVERY 4 HOURS NEEDED, Starting | | AM PDT | | | | | 04/27/08 at 0825, Until Fri | | | | | | | 04/27/08 at 1855, mild pain, | | | | | | | headache, fever | | | | | | + +--------+ +--------+------+------+ +---+---+ | | | +---+---+ + +-------+ +-----+---+---+ | calcium gluconate 1 gram in NS | Given | 04/26/20 | 1 g | | | | IV (Pyxis) 1 g, intravenous, | | 08 6:55 | | | | | ONCE, 1 dose, Shikha 04/26/08 at 0645 | | AM PDT | | | | + +-------+ +-----+---+---+ +---+---+ | | | +---+---+ + +-------+ +-----+---+---+ | cefTRIAXone (aka ROCEPHIN) IV 1 | Given | 04/26/20 | 1 g | | | | g 1 g, intravenous, EVERY 24 | | 08 10:50 | | | | | HOURS, First dose on Shikha 04/26/08 | | AM PDT | | | | | at 0900, Until Discontinued | | | | | | + +-------+ +-----+---+---+ +---+---+ | | | +---+---+ + +-------+ +-------+---+---+ | dextrose injection 25 mL 25 | Given | 04/26/20 | 25 mL | | | | mL, intravenous, NEEDED, | | 08 6:50 | | | | | Starting Shikha 04/26/08 at 0253, | | PM PDT | | | | | Until Wed04/27/08 at 0751, | | | | | | | hypoglycemia, CBG less than 70 | | | | | | | mg/dL | | | | | | + +-------+ +-------+---+---+ +-------+ +-------+---+---+ | Given | 04/26/20 | 25 mL | | | | | 08 12:27 | | | | | | PM PDT | | | | +-------+ +-------+---+---+ +---+---+ | | | +---+---+ + + + +--------+---------+---+ | fentanyl in NaCl 0.9% (aka | Rate/Dos | 04/26/20 | 50 | 5 mL/hr | | | SUBLIMAZE) IV infusion 50-125 | e Change | 08 6:00 | mcg/hr | | | | mcg/hr 50-125 mcg/hr (rounded to | | AM PDT | | | | | 5-12.5 mL/hr), intravenous, | | | | | | | CONTINUOUS, Starting Shikha 04/26/08 | | | | | | | at 0315, Until Shikha 04/26/08 at | | | | | | | 1132 | | | | | | + + + +--------+---------+---+ +---------+ +--------+---------+---+ | New Bag | 04/26/20 | 50 | 5 mL/hr | | | | 08 3:40 | mcg/hr | | | | | AM PDT | | | | +---------+ +--------+---------+---+ +---+---+ | | | +---+---+ + +-------+ +------+---+---+ | morphine injection 1-6 mg 1-6 | Given | 04/26/20 | 2 mg | | | | mg, intravenous, EVERY 2 HOURS | | 08 9:27 | | | | | NEEDED, Starting Shikha 04/26/08 at | | PM PDT | | | | | 1131, Until 04/27/08 at 1855, | | | | | | | severe pain | | | | | | + +-------+ +------+---+---+ +-------+ +------+---+---+ | Given | 04/26/20 | 2 mg | | | | | 08 7:04 | | | | | | PM PDT | | | | +-------+ +------+---+---+ +---+---+ | | | +---+---+ + +-------+ +--------+---+---+ | NaCl 0.9 % IV bolus 500 mL, | Given | 04/26/20 | 500 mL | | | | intravenous, ONCE, 1 dose, Shikha | | 08 4:26 | | | | | 04/26/08 at 0400 | | AM PDT | | | | + +-------+ +--------+---+---+ +---+---+ | | | +---+---+ + +---------+ +---+-------+---+ | NaCl 0.9 % IV intravenous, | New Bag | 04/26/20 | | 125 | | | CONTINUOUS, Starting Shikha 04/26/08 | | 08 3:30 | | mL/hr | | | at 0400, Until Wed04/27/08 at | | AM PDT | | | | | 0647 | | | | | | + +---------+ +---+-------+---+ +---+---+ | | | +---+---+ + +-------+ +------+---+---+ | ondansetron (aka ZOFRYASEMIN) | Given | 04/26/20 | 4 mg | | | | injection 4 mg 4 mg, | | 08 12:30 | | | | | intravenous, EVERY 12 HOURS | | PM PDT | | | | | NEEDED, Starting Shikha 04/26/08 at | | | | | | | 1132, Until Wed04/27/08 at 1855, | | | | | | | nausea/vomiting | | | | | | + +-------+ +------+---+---+ +---+---+ | | | +---+---+ + +-------+ + +---+---+ | oxymetazoline (aka AFRIN) 0.05 | Given | 04/27/20 | 2 sprays | | | | % nasal spray 2 [place] 2 spray, | | 08 9:00 | | | | | nasal, TWICE DAILY, First dose on | | AM PDT | | | | | Shikha 04/26/08 at 0900, Until | | | | | | | Discontinued | | | | | | + +-------+ + +---+---+ +-------+ + +---+---+ | Given | 04/26/20 | 2 sprays | | | | | 08 9:00 | | | | | | PM PDT | | | | +-------+ + +---+---+ | Given | 04/26/20 | 2 sprays | | | | | 08 8:37 | | | | | | AM PDT | | | | +-------+ + +---+---+ +---+---+ | | | +---+---+ + +-------+ +---------+---+---+ | promethazine (aka PHENERGAN) | Given | 04/26/20 | 12.5 mg | | | | injection 12.5 mg 12.5 mg, | | 08 7:05 | | | | | intravenous, EVERY 6 HOURS | | PM PDT | | | | | NEEDED, Starting Shikha 04/26/08 at | | | | | | | 1132, Until 04/27/08 at 1855, | | | | | | | nausea/vomiting | | | | | | + +-------+ +---------+---+---+ +---+---+ | | | +---+---+ + + + + +-------+---+ | propofol (aka DIPRIVAN) | Rate/Dos | 04/26/20 | 20 | 7.4 | | | injection 30.65-3,678 mcg/min | e Change | 08 6:00 | mcg/kg/m | mL/hr | | | 0.5-60 mcg/kg/min | | AM PDT | in | | | | 61.3 kg (rounded to 0.2-22.1 | | | | | | | mL/hr), intravenous, CONTINUOUS, | | | | | | | Starting [facility] 04/26/08 at 0315, | | | | | | | Until Shikha 04/26/08 at 1132 | | | | | | + + + + +-------+---+ + + + +-------+---+ | Restarted | 04/26/20 | 20 | 7.4 | | | | 08 5:11 | mcg/kg/m | mL/hr | | | | AM PDT | in | | | + + + +-------+---+ | New Bag | 04/26/20 | 20 | 7.4 | | | | 08 3:15 | mcg/kg/m | mL/hr | | | | AM PDT | in | | | + + + +-------+---+ +---+---+ | | | +---+---+ + +-------+ +-------+---+---+ | ranitidine (aka ZANTAC) IV 50 | Given | 04/27/20 | 50 mg | | | | mg 50 mg, intravenous, EVERY 8 | | 08 8:00 | | | | | HOURS, First dose on Shikha 04/26/08 | | AM PDT | | | | | at 0330, Until Discontinued | | | | | | + +-------+ +-------+---+---+ +-------+ +-------+---+---+ | Given | 04/27/20 | 50 mg | | | | | 08 12:00 | | | | | | AM PDT | | | | +-------+ +-------+---+---+ | Given | 04/26/20 | 50 mg | | | | | 08 4:30 | | | | | | PM PDT | | | | +-------+ +-------+---+---+ +---+---+ | | | +---+---+ documented in this encounter
--- OUTSIDE RECORDS SUMMARY | ~2020-03-28 | XMS | Encounter Summary ---
Demographics + + + | Address | [address] | | | [place] [address] | + + + | Home Phone | | + + + | Preferred Language | Unknown | + + + | Marital Status | Single | + + + | Gnosticism Affiliation | PRO | + + + | Race | White | + + + | Ethnic Group | Not or | + + + Author + + + | Author | [facility] | + + + | Organization | [facility] | + + + | Address | Unknown | + + + | Phone | Unavailable | + + + Support + + + + + | Name | Relationship | Address | Phone | + + + + + | Candice Recio | FINN | [address] | | | | | [address], [place] | | | | | [address] | | + + + + + | Sergio Ajvictor m | FINN | [address] | | | | [address] | | | | | [address] | | + + + + + Care Team Providers + +------+ + | Care Cement Mason Name | Role | Phone | + [...] Floor | | 2007 | Visit | [facility] | [address] | (Blow-Out), Closed | | | | ogy at [facility] [address] | [address] | Fracture (Primary | | | | [address] [facility] [place] | [place] [address] | Dx) | | | | Health and Healing, | [phone] | | | | | | | | | | | Floor [place], [place] | | | | | | [address] | | | | | | [phone] | | | +--------+---------+ + + + [...] year old male No occupation listed. from [place] : Patient presents with: Eye examination - [...] combining appts, pt coming [facility] Tobacco use: has no tobacco history on [...] / / Left eye / 20/25-2 / 05/17/2008 Other IOP CCT(pachy) [place] Color [...] another 1-2 months that he see local meat seafood associate for refraction and checkup. Dale Miner MD, 05/17/2008 documented in this enco unter Plan of Treatment Not on filedocumented as of this encounter Visit Diagnoses + + | Diagnosis | + + | Orbital floor (blow-out), closed fracture - Primary | + + documented in this encounter"
--- OUTSIDE RECORDS SUMMARY | ~2020-03-28 | XMS | Encounter Summary ---
Demographics + + + | Address | [address] | | | [place] [address] | + + + | Home Phone | | + + + | Preferred Language | Unknown | + + + | Marital Status | Single | + + + | Temple Affiliation | PRO | + + + | Race | White | + + + | Ethnic Group | Not or | + + + Author + + + | Author | [facility] | + + + | Organization | [facility] | + + + | Address | Unknown | + + + | Phone | Unavailable | + + + Support + + + + + | Name | Relationship | Address | Phone | + + + + + | Candice Recio | FINN | [address] | | | | | [address], [place] | | | | | [address] | | + + + + + | Sergio Almita | FINN | [address] | | | | [address] | | | | | [address] | | + + + + + Care Team Providers + +------+ + | Care Construction Administrator Name | Role | Phone | + +------+ + | Floyd Mcgee MD | PCP | | + +------+ + Encounter Details +--------+ + + + + | Date | Type | Department | Care Team | Description | +--------+ + + + + | 05/28/ | Ancillary | Registration [id number] | Tahir Piedra, | | | 2005 | Registratio | [address] | | | | | [place] | Austyn Mailcode: [id number] | | | | | | [place], [place] | | | | | | [address] | | | | | | [phone] | | | +--------+ + + + [...]
--- OUTSIDE RECORDS SUMMARY | ~2020-03-28 | XMS | Encounter Summary ---
Demographics + + + | Address | [address] | | | [place] [address] | + + + | Home Phone | | + + + | Preferred Language | Unknown | + + + | Marital Status | Single | + + + | Confucianism Affiliation | PRO | + + + | Race | White | + + + | Ethnic Group | Not or | + + + Author + + + | Author | [facility] | + + + | Organization | [facility] | + + + | Address | Unknown | + + + | Phone | Unavailable | + + + Support + + + + + | Name | Relationship | Address | Phone | + + + + + | Candice Recio | FINN | [address] | | | | | [address], [place] | | | | | [address] | | + + + + + | Sergio Almita | FINN | [address] | | | | [address] | | | | | [address] | | + + + + + Care Team Providers + +------+ + | Care Visual Training Aide Name | Role | Phone | + +------+ + | Latricia Rodriguez MD | PCP | | + +------+ + Encounter Details +--------+ + + + + | Date | Type | Department | Care Team | Description | +--------+ + + + + | 06/07/ | Office | General Internal | Note, Outpatient | Progress Note | | 1996 | Visit-Trans | Medicine 3245 | Clinic | | | | mike | Leticia Malone | | | | | | Mailcode: [id number] | | | | | | Outpatient Clinic | | | | | | [facility], [address] | | | | | | [place], [place] | | | | | | [address] | | | | | | [phone] | | | +--------+ + + + [...] as of this encounter Progress Notes Interface, Sausage Inspector In - 09/28/2006 3:11 AM PST CLINIC DATE: 06/07/97 CLINIC SITE: [place] Ackerman is now 11. He is a young boy with mild aortic valve disease of the bicuspid aortic valve. He has been doing well and has no cardiac symptoms or signs. He currently has been taking Ritalin for Attention Deficit Disorder. He is a very active boy and participates in athletics at school, football and baseball. On examination today, he is alert and in no distress. He weighs 57-1/2 pounds. He is 51-1/2 inches tall. Blood pressure is 94/69. Heart rate is 107 per minute and regular. His arterial saturation by pulse oximeter at room air is 100%. Palpation of the precordium reveals no overactivity nor thrill. There is a faint thrill palpable in the supramanubrial notch. Abdominal examination is negative without hepatosplenomegaly. He has good pulses in both upper and lower extremities. These are synchronous and of equal amplitude. No edema is noted, nor is there evidence of venous congestion. On auscultation, he has a systolic ejection click followed by a systolic ejection murmur that begins in the third left interspace and I can hear it into the second right interspace. The second heart sounds are normally split. No S3 or S4 is heard. No diastolic murmur is heard. This boy has findings on his electrocardiogram that are normal. This boy has mild aortic stenosis as evidenced by his examination with an ejection click. Because he is tending to be quite active in athletics, I feel that we should see him again next summer with an electrocardiogram and if there is any change in the gradient across his aortic valves, consider an exercise test to make better assessment as to whether or not he should continue his athletic endeavors into competitive team sports. I feel that he continues to have mild aortic valve disease and at would not restrict his activities in any way. He should have prophylactic antibiotics when he is at risk of bacteremia to prevent bacterial endocarditis. Tahir Piedar M.D. Professor, Pediatric Cardiology ABISAI/shana P cc: LATRICIA RODRIGUEZ MD [address] [place] [address] [place] [address] documented in this encounter Plan of Treatment Not on filedocumented as of this encounter Visit Diagnoses Not on filedocumented in this encounter"
--- OUTSIDE RECORDS SUMMARY | ~2020-03-28 | XMS | Encounter Summary ---
Demographics + + + | Address | [address] | | | [place] [address] | + + + | Home Phone | | + + + | Preferred Language | Unknown | + + + | Marital Status | Single | + + + | Jew Affiliation | PRO | + + + | Race | White | + + + | Ethnic Group | Not or | + + + Author + + + | Author | [facility] | + + + | Organization | [facility] | + + + | Address | Unknown | + + + | Phone | Unavailable | + + + Support + + + + + | Name | Relationship | Address | Phone | + + + + + | Candice Recio | FINN | [address] | | | | | [address], [place] | | | | | [address] | | + + + + + | Sergio Almita | FINN | [address] | | | | [address] | | | | | [address] | | + + + + + Care Team Providers + +------+ + | Care Back Tender Paper Machine Name | Role | Phone | + [...] as of this encounter Progress Notes Interface, Airline Hostess In - 03/21/2006 3:10 AM PDTCLINIC DATE: 06/09/2002 [facility] SUBJECTIVE: Tyron is [...] R: 06/12/2002 cc: LATRICIA RODRIGUEZ MD [address] [facility] [address] [place] [id number] signed by Interface, Airline Hostess In at 03/21/2006 3:10 AM PDTdocumented in this encounter Plan of Treatment Not on filedocumented as of this encounter Visit Diagnoses Not on filedocumented in this encounter"
--- OUTSIDE RECORDS SUMMARY | ~2020-03-28 | XMS | Encounter Summary ---
Demographics + + + | Address | [address] | | | [place] [address] | + + + | Home Phone | | + + + | Preferred Language | Unknown | + + + | Marital Status | Single | + + + | Yazidi Affiliation | PRO | + + + [...] [address], [place] | | | | | [address] | | + + + + + | Sergio Almita | FINN | [address] | | | | [address] | | | | | [address] | | + + + + + Care Team Providers + +------+ + | Care Studio Designer Name | Role | Phone | + +------+ + | Floyd Mcgee MD | PCP | | + +------+ + Encounter Details +--------+ + + + + | Date | Type | Department | Care Team | Description | +--------+ + + + + | 05/27/ | Results | Pediatric | Tahir Piedra, | | | 2006 | Only | Cardiology at | MD | | | | | [place] | | | | | | [facility] | | | | | | [address] | | | | | | [place] | | | | | | [facility] | | | | | | 7th Floor [place], | | | | | | [place] [address] | | | | | | [phone] | | | +--------+ + + + [...] | TRANSTHORACIC | ECG | Routin | | 05/27/2007 11:30 AM | | ECHOCARDIOGRAM, | | e | | PDT | | ADULT | | | | | + +------+--------+ + + documented as of this encounter Visit Diagnoses Not on filedocumented in this encounter"
--- OUTSIDE RECORDS SUMMARY | ~2020-03-28 | XMS | Encounter Summary ---
Demographics + + + | Address | [address] | | | [place] [address] | + + + | Home Phone | | + + + | Preferred Language | Unknown | + + + | Marital Status | Single | + + + | Adventism Affiliation | PRO | + + + | Race | White | + + + | Ethnic Group | Not or | + + + Author + + + | Author | [facility] | + + + | Organization | [facility] | + + + | Address | Unknown | + + + | Phone | Unavailable | + + + Support + + + + + | Name | Relationship | Address | Phone | + + + + + | Candice Recio | FINN | [address] | | | | | [address], [place] | | | | | [address] | | + + + + + | Sergio Almita | FINN | [address] | | | | [address] | | | | | [address] | | + + + + + Care Team Providers + +------+ + | Care Librarian Name | Role | Phone | + +------+ + | Floyd Mcgee MD | PCP | | + +------+ + Encounter Details +--------+ + + + + | Date | Type | Department | Care Team | Description | +--------+ + + + + | 05/25/ | Office | [facility] | Note, Pednydia Cardio | Progress Note | | 2002 | Visit-Trans | CARDIOLOGY | Clinic | [...] as of this encounter Progress Notes Interface, Assignment Desk Assistant In - 01/28/2006 3:07 AM PDTClinic Date: 05/25/2003 PEDIATRIC CARDIOLOGY Clinic Site: [facility] Tyron is a 17-year-old young man who was seen after an interval of a year. He is followed with the diagnosis of mild to moderate aortic stenosis as a result of a bicuspid aortic valve. Since we saw him, he has been started on Tegretol for his temperament. Otherwise, his health has been good and he has had no cardiac symptoms or signs. However, he does state that his ribs hurt often when he has been running a mile. This is relieved with him walking or running slower and he relates this discomfort on a scale of 10 as a 2. On examination, he is alert but somewhat reticent and not wanting to engage. He is in no distress and he has no cyanosis. His current weight is 133.5 pounds, he is 68 inches tall. Blood pressure is 135/76, heart rate is 64 per minute and regular. His arterial saturation by pulse oximeter at room air is 100%. Palpation of the precordium reveals a faint thrill in the supramanubrial notch. There is no ventricular overactivity noted. There is no chest wall deformity noted. NECK: There is no neck vein distention. Venous pressure is estimated to be at about 5 cm of water. ABDOMEN: Negative without hepatosplenomegaly, masses or tenderness. He has no edema. EXTREMITIES: He has good pulses in both upper and lower extremities. The pulses are synchronous and of equal amplitude. LUNGS: Clear to auscultation. CARDIAC: Auscultation reveals systolic ejection murmur preceded by an ejection click heard at the third left interspace and in the aortic area best. I did not appreciate any diastolic murmurs. He has normal heart sounds and I did not appreciate an S3 or S4. An echocardiogram was done and showed the Doppler gradient across his valve at 3.7 m/s. The proximal aorta is dilated and these are findings that were noted before and there has been no appreciable change in his Doppler gradient. With these findings, I feel that we should continue to follow Tyron again in one year, deferring any intervention at this time. He should of course have prophylactic antibiotics when he is at risk of bacteremia to reduce the risk of bacterial endocarditis. I talked with Noah to try to relate to him what we are seeing him for and the necessity for continued followup if we are to preserve his ventricular function. Tahir Piedra M.D. Professor of Pediatrics Division of Pediatric Cardiology [facility] ABISAI/josseline A [id number] cc: Floyd Mcgee M.D. [address] [facility] [address] [place], [place] [id number] signed by Interface, Assignment Desk Assistant In at 01/28/2006 3:0 7 AM PDTdocumented in this encounter Plan of Treatment Not on filedocumented as of this encounter Visit Diagnoses Not on filedocumented in this encounter"
--- OUTSIDE RECORDS SUMMARY | ~2020-03-28 | XMS | Encounter Summary ---
Demographics + + + | Address | [address] | | | [place] [address] | + + + | Home Phone [...] [address], [place] | | | | | [address] | | + + + + + | Sergio Almita | ECON | [address] | | | | [address], [place] | | | | | [address] | | + + + + + Care Team Providers + +------+ + | Care Library Clerical Assistant Name | Role | Phone | + [...] | MD | | | | | [place] [address] | | | | | | [address] | | | | | | Pediatric | | | | | | [facility] | | | | | | [place], [place] | | | | | | [address] | | | | | | [phone] | | | +--------+ + + + [...]
--- OUTSIDE RECORDS SUMMARY | ~2020-03-28 | XMS | Encounter Summary ---
Demographics + + + | Address | [address] | | | [place] [address] | + + + | Home Phone | | + + + | Preferred Language | Unknown | + + + | Marital Status | Single | + + + | Scientologist Affiliation | PRO | + + + | Race | White | + + + | Ethnic Group | Not or | + + + Author + + + | Author | [facility] | + + + | Organization | [facility] | + + + | Address | Unknown | + + + | Phone | Unavailable | + + + Support + + + + + | Name | Relationship | Address | Phone | + + + + + | Candice Recio | FINN | [address] | | | | | [address], [place] | | | | | [address] | | + + + + + | Sergio Almita | FINN | [address] | | | | [address] | | | | | [address] | | + + + + + Care Team Providers + +------+ + | Care Carton And Can Supply Supervisor Name | Role | Phone | + [...] TTE) | | 2002 | | [address] [facility] | [phone] | | | | Transcribed | [address] | | | | | | [place], [place] | | | | | | [address] | | | +--------+ + + + [...] 12:00 AM PDTAssociated Order(s): TRANSTHORACIC ECHOCARDIOGRAM, ADULT [facility] DATE: 05/25/03 [place], [place] MED REC NO: [id number] NAME: TYRON RECIO ECHOCARDIOGRAPHY REPORT BIRTHDATE: [birth year] INDICATION FOR STUDY: AORTIC VALVE STENOSIS UNIT: [place] STUDY NO: [id number] TAPE NO. DIGITAL REQUEST [...] IN [place] ON 05/25/03 AND READ AT [facility] ON 05/28/03. 2. BICUSPID AORTIC VALVE WITH [...] | Other, Faculty - 05/25/2003 12:00 AM [facility] DATE: | | 05/25/03 [place], [place] MED REC NO: [id number] NAME: TYRON RECIO | | ECHOCARDIOGRAPHY REPORT BIRTHDATE: [birth year] INDICATION FOR STUDY: AORTIC VALVE STENOSIS | | UNIT: [place] STUDY NO: [id number] TAPE NO. DIGITAL REQUEST [...] | 1. STUDY | | DONE IN [place] ON 05/25/03 AND READ AT [facility] ON 05/28/03. 2. BICUSPID AORTIC VALVE | [...] | | | 1. STUDY DONE IN [place] ON 05/25/03 AND READ AT [facility] ON | | 05/28/03. | | | [...]
--- OUTSIDE RECORDS SUMMARY | ~2020-03-28 | XMS | Encounter Summary ---
Demographics + + + | Address | [address] | | | [place] [address] | + + + | Home Phone | | + + + | Preferred Language | Unknown | + + + | Marital Status | Single | + + + | Taoist Affiliation | PRO | + + + | Race | White | + + + | Ethnic Group | Not or | + + + Author + + + | Author | [facility] | + + + | Organization | [facility] | + + + | Address | Unknown | + + + | Phone | Unavailable | + + + Support + + + + + | Name | Relationship | Address | Phone | + + + + + | Candice Recio | FINN | [address] | | | | | [address], [place] | | | | | [address] | | + + + + + | Sergio Almita | FINN | [address] | | | | [address] | | | | | [address] | | + + + + + Care Team Providers + +------+ + | Care Square Dance Caller Name | Role | Phone | + +------+ + | Floyd Mcgee MD | PCP | | + +------+ + Encounter Details +--------+ + + + + | Date | Type | Department | Care Team | Description | +--------+ + + + + | 05/20/ | Supervisor [employer] | Pediatric | Tahir Piedra, | Congenital Stenosis | | 2006 | | Cardiology at | MD | of Aortic Valve | | | | [place] [address] | | (Primary Dx) | | | | [address] | | | | | | Pediatric | | | | | | [facility] | | | | | | [place], [place] | | | | | | [address] | | | | | | [phone] | | | +--------+ + + + [...]
--- OUTSIDE RECORDS SUMMARY | ~2020-03-28 | XMS | Encounter Summary ---
Demographics + + + | Address | [address] | | | [place] [address] | + + + | Home Phone | | + + + | Preferred Language | Unknown | + + + | Marital Status | Single | + + + | Rastafarian Affiliation | PRO | + + + [...] [address], [place] | | | | | [address] | | + + + + + | Sergio Almita | FINN | [address] | | | | [address], [place] | | | | | [address] | | + + + + + Care Team Providers + +------+ + | Care Recreational Facilities Motel Manager Name | Role | Phone | [...] | | | | | | Austyn [facility] | | | | | | | [facility] | | | | | | | [place], [place] | | | | | | | [address] | | | | | | | Phone: | | | | | | | [phone] | +--------+--------+ + + + + Encounter Details +--------+ + + + + | Date | Type | Department | Care Team | Description | +--------+ + + + + | 04/26/ | Hospital | [facility] [address] | Rober Stoddard, | | | 2007 - | Encounter | [address] | | | | | | [id number] [facility] | | | | 04/27/ | | 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 Patient reportedly had LOC, unknown how long. He was taken to a hospital in [place] where a L brow lac was repaired [...] - as scheduled. Other: NSG, Opthalmology at [facility] or OSH or clinic, and Fascial Plastics with Dr. Nichole at [phone] Follow Up Tests: will need an audiogram [...] He was taken to a hospital in [place] where a L brow lac was repaired [...] - as scheduled. Other: NSG, Opthalmology at [facility] or OS or clinic, and Fascial Plastics [...] face down onto concrete while at a [employer] on board. Patient reportedly had LOC, unkno wn how long. He was taken to a hospital in [place] where a L brow lac was repaired [...] Ophthalmology, and Fascial Plastics in 2 w [facility]. Call: Trauma clinic or ED at If you have any of the following: flashes, floaters, diplopia Difficulty breathing or unusual shortness of breath Excessive bleeding, drainage at the operative site Fevers, chills, increased pain that is not relieved by pain medications Persistent nausea or vomiting Follow Up Appointments: PCP: Floyd Mcgee MD - as scheduled. Other: NSG, Opthalmology at [facility] or [facility] or clinic, and Fascial Plastics with Dr. [...] home in next day or so. Rishabh, [id number] sig juan [place] by Gordon Montaño at [...] Min: 97 % Max: 100 % I/O: [id number]/6646 Exam: Gen: alert Neuro: following commands, BELLA [...] the resident s note. FÁTIMA HARTLEY MD [facility] 7A TRAUMA ICU [address] [place] [address] Henry Silverman 04/27/20 08 5:37 AM PDT NEUROSURGERY PROGRESS NOTE Author: HENRY RICHARD MD Attending Physician: Rober Stoddard HPI/Interval [...] Intake/Output Summary (Last 24 hours) at 04/27 0594 Last data filed at 04/27 0500 Gross [...] hours: No results found for this basename: PH:5,PCO2:5,PO2:5,HCO3:5,IPZHN3HTL:5,O1URLLTG:5,M4WTZMZ RC:5,FIO2:5 in the last 72 hours I/Os: [...] the resident s note. FÁTIMA HARTLEY MD [facility] 7A TRAUMA ICU [address] [place] [address] documented in this encoun ter Plan of [...] [facility] | [address] | [place], [place] | | | THERAPY | [address] | [address] | | + + + + + | [facility] | [address] | [place], [place] | | | THERAPY | [address] | [address] | | + + + + + [...] | + + + + + | [facility] | [address] | [place] [address] | | | PATHOLOGY | [address] | | | + + + + + | [facility] | [address] | [place] [address] | | | PATHOLOGY | [address] [...] | + + + + + | [facility] DEPARTMENT | [address] [facility] | [place] [address] | | | PATHOLOGY | [address] | | | + + + + + | [facility] | [address] [facility] | [place] [address] | | | PATHOLOGY | [address] [...] + | [facility] DEPARTMENT OF | [address] [facility] | [place] [address] | | | PATHOLOGY | [address] | | | + + + + + | [facility] DEPARTMENT OF | [address] [facility] | [place] [address] | | | PATHOLOGY | [address] [...] | + + + + + | [facility] DEPARTMENT OF | [address] | [place] [address] | | | PATHOLOGY | [address] | | | + + + + + | [facility] DEPARTMENT OF | [address] | [place] [address] | | | PATHOLOGY | [address] [...] view image for the detailed interpretation from [email or web address] results. | CARDIOLOGY | | | | + + + + + + + + | Performing | Address | City/State/Zipcode | Phone Number | | Organization | | | | + + + + + | [facility] DEPT OF | [address] | [place], [place] | | | CARDIOLOGY | [address] | [address] | | + + + + + | [facility] | [address] | [place], [place] | | | CARDIOLOGY | [address] | [address] | | + + + + + [...] | + + + + + | [facility] | [address] | [place] [address] | | | PATHOLOGY | [address] | | | + + + + + | [facility] | [address] | [place] [address] | | | PATHOLOGY | [address] [...] | + + + + + | [facility] | [address] | [place] [address] | | | PATHOLOGY | [address] | | | + + + + + | [facility] | [address] | [place] [address] | | | PATHOLOGY | [address] [...] | + + + + + | [facility] DEPARTMENT OF | [address] | [place] [address] | | | PATHOLOGY | [address] | | | + + + + + | [facility] | [address] | [place] [address] | | | PATHOLOGY | [address] [...] | + + + + + | [facility] | [facility] | [place] [address] | | | PATHOLOGY | [address] | | | + + + + + | [facility] | [address] [place] [address] | [place] [address] | | | PATHOLOGY | [address] [...] | + + + + + | [facility] DEPARTMENT | [address] [facility] | [place] [address] | | | PATHOLOGY | [address] | | | + + + + + | [facility] | [address] [facility] | [place] [address] | | | PATHOLOGY | [address] [...] DEPARTMENT OF | [address] | [place] [address] | | | PATHOLOGY | [address] | | | + + + + + | [facility] DEPARTMENT | [address] | [place] [address] | | | PATHOLOGY | [address] [...] | + + + + + | [facility] DEPARTMENT OF | [address] [facility] | [place] [address] | | | PATHOLOGY | [address] | | | + + + + + | [facility] DEPARTMENT OF | [address] [facility] | [place] [address] | | | PATHOLOGY | [address] [...] | + + + + + | [facility] | [address] [place] [address] | [place] [address] | | | PATHOLOGY | [address] | | | + + + + + | [facility] DEPARTMENT OF | [facility] | [place] [address] | | | PATHOLOGY | [address] [...] | | | % nasal spray 2 [place] 2 spray, | | 08 9:00 | [...] | | | | | | Starting [facility] 04/26/08 at 0315, | | | | [...]
--- OUTSIDE RECORDS SUMMARY | ~2020-03-28 | XMS | Encounter Summary ---
Demographics + + + | Address | [address] | | | [place] [address] | + + + | Home Phone | | + + + | Preferred Language | Unknown | + + + | Marital Status | Single | + + + | Moravian Affiliation | PRO | + + + | Race | White | + + + | Ethnic Group | Not or | + + + Author + + + | Author | [facility] | + + + | Organization | [facility] | + + + | Address | Unknown | + + + | Phone | Unavailable | + + + Support + + + + + | Name | Relationship | Address | Phone | + + + + + | Candice Recio | FINN | [address] | | | | | [address], [place] | | | | | [address] | | + + + + + | Sergio Almita | FINN | [address] | | | | [address] | | | | | [address] | | + + + + + Care Team Providers + +------+ + | Care Public Health Educator Name | Role | Phone | + [...] as of this encounter Progress Notes Interface, Rail Layer In - 01/28/2006 3:07 AM PDTClinic Date: 05/25/2003 PEDIATRIC CARDIOLOGY Clinic Site: [facility] Tyron is a [...] Professor of Pediatrics Division of Pediatric Cardiology [facility] ABISAI/josseline A [phone] cc: Floyd Mcgee M.D. [address] [place], [place] [id number] signed by Interface, Rail Layer In at 01/28/2006 3:0 7 AM PDTdocumented in this encounter Plan of Treatment Not on filedocumented as of this encounter Visit Diagnoses Not on filedocumented in this encounter"
--- OUTSIDE RECORDS SUMMARY | ~2020-03-28 | XMS | Encounter Summary ---
Demographics + + + | Address | [address] | | | [place] [address] | + + + | Home Phone | | + + + | Preferred Language | Unknown | + + + | Marital Status | Single | + + + | Baptism Affiliation | PRO | + + + | Race | White | + + + | Ethnic Group | Not or | + + + Author + + + | Author | [facility] | + + + | Organization | [facility] | + + + | Address | Unknown | + + + | Phone | Unavailable | + + + Support + + + + + | Name | Relationship | Address | Phone | + + + + + | Candice Recio | FINN | [address] | | | | | [address], [place] | | | | | [address] | | + + + + + | Sergio Almita | FINN | [address] | | | | [address] | | | | | [address] | | + + + + + Care Team Providers + +------+ + | Care Pari Mutuel Ticket Seller Name | Role | Phone | + [...] TTE) | | 2002 | | [address] [facility] | [phone] | | | | Transcribed | [address] | | | | | | [place], [place] | | | | | | [address] | | | +--------+ + + + [...] 12:00 AM PDTAssociated Order(s): TRANSTHORACIC ECHOCARDIOGRAM, ADULT [facility] DATE: 05/25/03 [place], [place] MED REC NO: [id number] NAME: TYRON RECIO ECHOCARDIOGRAPHY REPORT BIRTHDATE: [birth year] INDICATION FOR STUDY: AORTIC VALVE STENOSIS UNIT: [place] STUDY NO: [id number] TAPE NO. DIGITAL REQUEST [...] IN [place] ON 05/25/03 AND READ AT [facility] ON 05/28/03. 2. BICUSPID AORTIC VALVE WITH [...] | Other, Faculty - 05/25/2003 12:00 AM [facility] DATE: | | 05/25/03 [place], [place] MED REC NO: [id number] NAME: TYRON RECIO | | ECHOCARDIOGRAPHY REPORT BIRTHDATE: [birth year] INDICATION FOR STUDY: AORTIC VALVE STENOSIS | | UNIT: [place] STUDY NO: [id number] TAPE NO. DIGITAL REQUEST [...] | 1. STUDY | | DONE IN [place] ON 05/25/03 AND READ AT [facility] ON 05/28/03. 2. BICUSPID AORTIC VALVE | | WITH MODERATE STENOSIS AND MILD REGURGITATION. 3. LEFT VENTRICULAR SIZE NORMAL. | | HYPERDYNAMIC FRACTIONAL SHORTENING. 4. PHYSIOLOGIC TRICUSPID REGURGITATION. | | GENESIS GUNDESRON M.D. | | | | DOPPLER:M/S PW [...] | | | 1. STUDY DONE IN [place] ON 05/25/03 AND READ AT [facility] ON | | 05/28/03. | | | [...]
--- OUTSIDE RECORDS SUMMARY | ~2020-03-28 | XMS | Encounter Summary ---
Demographics + + + | Address | [address] | | | [place] [address] | + + + | Home Phone [...] [address], [place] | | | | | [address] | | + + + + + | Sergio Recio | ECON | [address] | | | | [address], [place] | | | | | [address] | | + + + + + Care Team Providers + +------+ + | Care Jet Dyeing Machine Operator Name | Role | Phone | + +------+ + | Floyd Mcgee MD | PCP | | + +------+ + Encounter Details +--------+ + + + + | Date | Type | Department | Care Team | Description | +--------+ + + + + | 05/28/ | Office | | Note, Outpatient | Progress Note | | 2006 | Visit-Trans | | Clinic | | | | cribed [...] as of this encounter Progress Notes Interface, Accounts Receivable Coordinator In - 06/08/2006 2:31 AM PDT [id number] [place]OLO [place]AR[place] [id number] Clinic Date: 05/28/2006 Clinic: [place] [facility] History: Tyron is a young boy, now 20, whom we have been following, with bicuspid aortic valve with minimal stenosis and minimal to mild aortic valve regurgitation. He continues to get along well without cardiac symptoms or signs. Physical Examination: On examination today, he is alert and in no distress, without cyanosis. He weighs 131-1/2 pounds, he is 70 inches tall, blood pressure is 119/56, heart rate is 70 per minute and regular, arterial saturation by pulse oximeter on room air is 100%. Palpation of the precordium reveals no overactivity nor thrill. Abdomen: Negative, without hepatosplenomegaly, masses, or tenderness. He had good pulses in both upper and lower extremities. He has no neck vein distention, no edema. Lungs: Clear to auscultation. Cardiac: Auscultation is essentially unchanged. He has a grade 2 systolic ejection murmur preceded by an ejection click which is heard best in the 3rd left interspace and 2nd right interspace. No diastolic murmur is heard. No S3 or S4 is heard. Second heart sound is normally split. Diagnostic Data: An echocardiogram was done and showed no significant changes from his previous echos. He does not have LVH and he has only minimal to mild degree of aortic valve regurgitation. Plan: We will continue to follow Tyron and asked to see him again in 1 year. Tahir Piedra M.D. Professor of Pediatrics Division of Pediatric Cardiology [facility] / [id number] / [id number] / [id number] / [id number] cc: * Floyd Mcgee M.D. [address] [facility] [address] [place] [address] Electronically signed by Tahir Piedra 06-07-2006 07:42:04 AM documented i n this encounter Plan of Treatment Not on filedocumented as of this encounter Visit Diagnoses Not on filedocumented in this encounter"
--- OUTSIDE RECORDS SUMMARY | ~2020-03-28 | XMS | Encounter Summary ---
Demographics + + + | Address | [address] | | | [place] [address] | + + + | Home Phone | | + + + | Preferred Language | Unknown | + + + | Marital Status | Single | + + + | Anabaptist Affiliation | PRO | + + + | Race | White | + + + | Ethnic Group | Not or | + + + Author + + + | Author | [facility] | + + + | Organization | [facility] | + + + | Address | Unknown | + + + | Phone | Unavailable | + + + Support + + + + + | Name | Relationship | Address | Phone | + + + + + | Candice Recio | FINN | [address] | | | | | [address], [place] | | | | | [address] | | + + + + + | Sergio Almita | FINN | [address] | | | | [address] | | | | | [address] | | + + + + + Care Team Providers + +------+ + | Care Sales And Marketing Intern Name | Role | Phone | + +------+ + | Floyd Mcgee MD | PCP | | + +------+ + Encounter Details +--------+ + + + + | Date | Type | Department | Care Team | Description | +--------+ + + + + | 03/31/ | Results | [facility] 7th | Tahir Piedra, | | | 2005 | Only | Floor [address] | [place] | | | | | Mailcode: [facility] | | | | | | [facility] [place], [place] | | | | | | [address] | | | | | | [phone] | | | +--------+ + + + [...]
--- OUTSIDE RECORDS SUMMARY | ~2020-03-28 | XMS | Encounter Summary ---
Demographics + + + | Address | [address] | | | [place] [address] | + + + | Home Phone | | + + + | Preferred Language | Unknown | + + + | Marital Status | Single | + + + | Denominational Affiliation | PRO | + + + | Race | White | + + + | Ethnic Group | Not or | + + + Author + + + | Author | [facility] | + + + | Organization | [facility] | + + + | Address | Unknown | + + + | Phone | Unavailable | + + + Support + + + + + | Name | Relationship | Address | Phone | + + + + + | Candice Recio | FINN | [address] | | | | | [address], [place] | | | | | [address] | | + + + + + | Sergio Almita | FINN | [address] | | | | [address] | | | | | [address] | | + + + + + Care Team Providers + +------+ + | Care Manufacturing Process Engineer Name | Role | Phone | [...] [id number] | | | | | | [place], [place] | | | | | | [address] | | | | | | [phone] | | | +--------+ + + + [...]
--- OUTSIDE RECORDS SUMMARY | ~2020-03-28 | XMS | Encounter Summary ---
Demographics + + + | Address | [address] | | | [place] [address] | + + + | Home Phone [...] Author + + + | Author | [facility] | + + + | Organization | [facility] | + + + | Address | Unknown | + + + | Phone | Unavailable | + + + Support + + + + + | Name | Relationship | Address | Phone | + + + + + | Candice Recio | FINN | [address] | | | | | [address], [place] | | | | | [address] | | + + + + + | Sergio Almita | FINN | [address] | | | | [address] | | | | | [address] | | + + + + + Care Team Providers + +------+ + | Care Geologist Petroleum Name | Role | Phone | + +------+ + | lFoyd Mcgee MD | PCP | | + [...] Anton | | | | | | [facility] | | | | | | [address] | | | | | | Anton | | | | | | [facility] | | | | | | 7th Floor [place], | | | | | | [place] [address] | | | | | | [phone] | | | +--------+ + + + [...]
--- OUTSIDE RECORDS SUMMARY | ~2020-03-28 | XMS | Clinical Summary ---
Demographics + + + | Address | [address] | | | [place] [address] | + + + | Home Phone | | + + + | Preferred Language | Unknown | + + + | Marital Status | Single | + + + | Restoration Affiliation | PRO | + + + [...] [address], [place] | | | | | [address] | | + + + + + | Sergio Recio | ECON | [address] | + | | | | [address], [place] | | | | | [address] | | + + + + + Care Team Providers + +------+ + | Care Security Coordinator Name | Role | Phone | + +------+ + | Floyd Mcgee MD | PCP | | + +------+ + Source Comments OSWALDO is fully live on both [facility] and [facility] In[facility] Allergies + + + + + + [...] Patient | Explanation | | | | Band Sawyer | | + + + + + | Advance | | | | | Directives and | | | | | Living Will | | | | + + + + + | Power of | | | | | Ceramics Teacher | | | | + + + [...]
--- OUTSIDE RECORDS SUMMARY | ~2020-03-28 | XMS | Encounter Summary ---
Demographics + + + | Address | [address] | | | [place] [address] | + + + | Home Phone | | + + + | Preferred Language | Unknown | + + + | Marital Status | Single | + + + | Mormonism Affiliation | PRO | + + + [...] [address], [place] | | | | | [address] | | + + + + + | Sergio Almita | FINN | [address] | | | | [address] | | | | | [address] | | + + + + + Care Team Providers + +------+ + | Care Filler In Name | Role | Phone | + [...] | | closed | Rd [facility] | [place], [place] | | | | | fracture | [facility] | [address] | | | | | | [place], [place] | | | | | | | [address] | | | | | | | Phone: | | | | | | | [phone] | | +--------+--------+ + + + + [...] | (Primary Dx) | | | | [facility] | | | | | | and Healing, | | | | | | [address] | | | | | | [place], [place] | | | | | | [address] | | | | | | [phone] | | | +--------+---------+ + + + [...]
--- OUTSIDE RECORDS SUMMARY | ~2020-03-28 | XMS | Encounter Summary ---
Demographics + + + | Address | [address] | | | [place] [address] | + + + | Home Phone [...] + + + | Author | [facility] | + + + | Organization | [facility] | + + + | Address | Unknown | + + + | Phone | Unavailable | + + + Support + + + + + | Name | Relationship | Address | Phone | + + + + + | Candice Recio | FINN | [address] | | | | | [address], [place] | | | | | [address] | | + + + + + | Sergio Almita | FINN | [address] | | | | [address] | | | | | [address] | | + + + + + Care Team Providers + +------+ + | Care Wound Care Rn Name | Role | Phone | + +------+ + | Floyd Mcgee MD | PCP | | + +------+ + Encounter Details +--------+ + + + + | Date | Type | Department | Care Team | Description | +--------+ + + + + | 04/02/ | Ancillary | Registration [address] | Tahir Piedra, | | | 2005 | Registratio | [address] | | | | | [place] | [place] Mailcode: [id number] | | | | | | [place], [place] | | | | | | [address] | | | | | | [phone] | | | +--------+ + + + [...]
--- OUTSIDE RECORDS SUMMARY | ~2020-03-28 | XMS | Encounter Summary ---
Demographics + + + | Address | [address] | | | [place] [address] | + + + | Home Phone [...] [address], [place] | | | | | [address] | | + + + + + | Sergio Almita | FINN | [address] | | | | [address] | | | | | [address] | | + + + + + Care Team Providers + +------+ + | Care Ethanol Operations Manager Name | Role | Phone | [...] Clinic | | | | | | [facility], [address] | | | | | | [place], [place] | | | | | | [address] | | | | | | [phone] | | | +--------+ + + + [...] as of this encounter Progress Notes Interface, Senior Payroll Administrator In - 11/24/2006 6:25 AM PDT CLINIC [...]
--- OUTSIDE RECORDS SUMMARY | ~2020-03-28 | XMS | Encounter Summary ---
Demographics + + + | Address | [address] | | | [place] [address] | + + + | Home Phone [...] + + + | Author | [facility] | + + + | Organization | [facility] | + + + | Address | Unknown | + + + | Phone | Unavailable | + + + Support + + + + + | Name | Relationship | Address | Phone | + + + + + | Candice Recio | FINN | [address] | | | | | [address], [place] | | | | | [address] | | + + + + + | Sergio Almita | FINN | [address] | | | | [address] | | | | | [address] | | + + + + + Care Team Providers + +------+ + | Care Collet Maker Name | Role | Phone | + [...] [id number] | | | | | | [place], [place] | | | | | | [address] | | | | | | [phone] | | | +--------+ + + + [...]
--- OUTSIDE RECORDS SUMMARY | ~2020-03-28 | XMS | Encounter Summary ---
Demographics + + + | Address | [address] | | | [place] [address] | + + + | Home Phone [...] [address], [place] | | | | | [address] | | + + + + + | Sergio jAvictor m | FINN | [address] | | | | [address] | | | | | [address] | | + + + + + Care Team Providers + +------+ + | Care Car Bracer Name | Role | Phone | + [...] Floor | | 2007 | Visit | [place]/Ophthalmol | [address] | (Blow-Out), Closed | | | | ogy at [facility] [address] | [address] | Fracture (Primary | | | | [address] [facility] | [place] [address] | Dx) | | | | Health and Healing, | [phone] | | | | | | | | | | | Floor [place], [place] | | | | | | [address] | | | | | | [phone] | | | +--------+---------+ + + + [...] year old male No occupation listed. from [employer] : Patient presents with: Eye examination - [...] another 1-2 months that he see local upper inspector for refraction and checkup. Dale Miner MD, 05/17/2008 documented in this enco unter Plan of Treatment Not on filedocumented as of this encounter Visit Diagnoses + + | Diagnosis | + + | Orbital floor (blow-out), closed fracture - Primary | + + documented in this encounter"
--- OUTSIDE RECORDS SUMMARY | ~2020-03-28 | XMS | Encounter Summary ---
Demographics + + + | Address | [address] | | | [place] [address] | + + + | Home Phone [...] Author + + + | Author | [facility] | + + + | Organization | [facility] | + + [...] [address], [place] | | | | | [address] | | + + + + + | Sergio Almita | FINN | [address] | | | | [address] | | | | | [address] | | + + + + + Care Team Providers + +------+ + | Care Application Security Developer Name | Role | Phone | [...] floor | | | | | | [place], [place] | | | | | | [address] | | | | | | [phone] | | | +--------+---------+ + + + [...] Physician & Surgeon Department of Neurological Surgery [facility] & [address], [address] [address] Pager: [phone] Sheela Estrada, Roly Arreola - 05/09 1:12 [...]
--- OUTSIDE RECORDS SUMMARY | ~2020-03-28 | XMS | Encounter Summary ---
Demographics + + + | Address | [address] | | | [place] [address] | + + + | Home Phone [...] [address], [place] | | | | | [address] | | + + + + + | Sergio Almita | FINN | [address] | | | | [address] | | | | | [address] | | + + + + + Care Team Providers + +------+ + | Care Gallery Director Name | Role | Phone | + +------+ + | Floyd Mcgee MD | PCP | | + +------+ + Encounter Details +--------+ + + + + | Date | Type | Department | Care Team | Description | +--------+ + + + + | 03/31/ | Results | [facility] | Tahir Piedra, | | | 2005 | Only | Floor [address] | [place] | | | | | Mailcode: [facility] | | | | | | [facility] [place], [place] | | | | | | [address] | | | | | | [phone] | | | +--------+ + + + [...]
--- OUTSIDE RECORDS SUMMARY | ~2020-03-28 | XMS | Encounter Summary ---
Demographics + + + | Address | [address] | | | [place] [address] | + + + | Home Phone | | + + + | Preferred Language | Unknown | + + + | Marital Status | Single | + + + | Scientology Affiliation | PRO | + + + [...] [address], [place] | | | | | [address] | | + + + + + | Sergio Recio | ECON | [address] | | | | [address], [place] | | | | | [address] | | + + + + + Care Team Providers + +------+ + | Care Time Study Statistician Name | Role | Phone | + [...]
--- OUTSIDE RECORDS SUMMARY | ~2020-03-28 | XMS | Encounter Summary ---
Demographics + + + | Address | [address] | | | [place] [address] | + + + | Home Phone [...] Author + + + | Author | [facility] | + + + | Organization | [facility] | + + + | Address | Unknown | + + + | Phone | Unavailable | + + + Support + + + + + | Name | Relationship | Address | Phone | + + + + + | Candice Recio | FINN | [address] | | | | | [address], [place] | | | | | [address] | | + + + + + | Sergio Almita | FINN | [address] | | | | [address] | | | | | [address] | | + + + + + Care Team Providers + +------+ + | Care Senior Project Engineer Name | Role | Phone | [...] Clinic | | | | | | [facility], [address] | | | | | | [place], [place] | | | | | | [address] | | | | | | [phone] | | | +--------+ + + + [...] as of this encounter Progress Notes Interface, Deputy Court In - 09/28/2006 3:11 AM PST CLINIC [...] of bacteremia to prevent bacterial endocarditis. Tahir Piedra M.D. Professor, Pediatric Cardiology ABISAI/shana P cc: LATRICIA RODRIGUEZ MD [address] [place] [address] [place] [address] documented in this encounter Plan of Treatment Not on filedocumented as of this encounter Visit Diagnoses Not on filedocumented in this encounter"
--- OUTSIDE RECORDS SUMMARY | ~2020-03-28 | XMS | Encounter Summary ---
Demographics + + + | Address | [address] | | | [place] [address] | + + + | Home Phone [...] Author | [facility] | + + + | Organization | [facility] | + + + | Address | Unknown | + + + | Phone | Unavailable | + + + Support + + + + + | Name | Relationship | Address | Phone | + + + + + | Candice Recio | FINN | [address] | | | | | [address], [place] | | | | | [address] | | + + + + + | Sergio Almita | FINN | [address] | | | | [address] | | | | | [address] | | + + + + + Care Team Providers + +------+ + | Care Centrifugal Spinner Name | Role | Phone | + [...] [id number] | | | | | | [place], [place] | | | | | | [address] | | | | | | [phone] | | | +--------+ + + + [...]
--- OUTSIDE RECORDS SUMMARY | ~2020-03-28 | XMS | Encounter Summary ---
Demographics + + + | Address | [address] | | | [place] [address] | + + + | Home Phone | | + + + | Preferred Language | Unknown | + + + | Marital Status | Single | + + + | Yazdanism Affiliation | PRO | + + + | Race | White | + + + | Ethnic Group | Not or | + + + Author + + + | Author | [facility] | + + + | Organization | [facility] | + + + | Address | Unknown | + + + | Phone | Unavailable | + + + Support + + + + + | Name | Relationship | Address | Phone | + + + + + | Candice Recio | FINN | [address] | | | | | [address], [place] | | | | | [address] | | + + + + + | Sergio Almita | FINN | [address] | | | | [address] | | | | | [address] | | + + + + + Care Team Providers + +------+ + | Care Starting Gate Driver Name | Role | Phone | + [...] [id number] | | | | | | [place], [place] | | | | | | [address] | | | | | | [phone] | | | +--------+ + + + [...]
--- OUTSIDE RECORDS SUMMARY | ~2020-03-28 | XMS | Encounter Summary ---
Demographics + + + | Address | [address] | | | [place] [address] | + + + | Home Phone | | + + + | Preferred Language | Unknown | + + + | Marital Status | Single | + + + | Adventist Affiliation | PRO | + + + [...] [address], [place] | | | | | [address] | | + + + + + | Sergio Almita | FINN | [address] | | | | [address] | | | | | [address] | | + + + + + Care Team Providers + +------+ + | Care Child Care Attendant School Name | Role | Phone | + [...] floor | | | | | | [place], [place] | | | | | | [address] | | | | | | [phone] | | | +--------+---------+ + + + [...] Physician & Surgeon Department of Neurological Surgery [facility] & [address], [address] [address] Pager: [phone] Sheela Estrada, Roly Arreola - 05/09 1:12 [...]
--- OUTSIDE RECORDS SUMMARY | ~2020-03-28 | XMS | Encounter Summary ---
Demographics + + + | Address | [address] | | | [place] [address] | + + + | Home Phone [...] [address], [place] | | | | | [address] | | + + + + + | Sergoi Almita | FINN | [address] | | | | [address] | | | | | [address] | | + + + + + Care Team Providers + +------+ + | Care Corporate Strategist Name | Role | Phone | + [...] Clinic | | | | | | [facility], [address] | | | | | | [place], [place] | | | | | | [address] | | | | | | [phone] | | | +--------+ + + + [...] as of this encounter Progress Notes Interface, Quality Cloth Tester In - 11/24/2006 6:25 AM PDT CLINIC [...]
--- OUTSIDE RECORDS SUMMARY | ~2020-03-28 | XMS | Encounter Summary ---
Demographics + + + | Address | [address] | | | [place] [address] | + + + | Home Phone | | + + + | Preferred Language | Unknown | + + + | Marital Status | Single | + + + | Muslim Affiliation | PRO | + + + | Race | White | + + + | Ethnic Group | Not or | + + + Author + + + | Author | [facility] | + + + | Organization | [facility] | + + + | Address | Unknown | + + + | Phone | Unavailable | + + + Support + + + + + | Name | Relationship | Address | Phone | + + + + + | Candice Recio | FINN | [address] | | | | | [address], [place] | | | | | [address] | | + + + + + | Sergio Almita | FINN | [address] | | | | [address] | | | | | [address] | | + + + + + Care Team Providers + +------+ + | Care Go Go Dancer Name | Role | Phone | + [...] | | 2006 | Visit-Trans | [address] [facility] | [facility] | | | | mike | [address] | | | | | | [place], [place] | | | | | | [address] | | | +--------+ + + + [...] as of this encounter Progress Notes Interface, Intermodal Dispatcher In - 05/31/2007 2:26 AM [facility] [id number] [place] [id number] Clinic Date: 05/27/2007 Clinic: [facility] The patient is a [...] of Pediatrics Division of Pediatric Cardiology [facility] / [id number] / [id number] / [phone] / [phone] cc: Floyd Mcgee M.D. [address] [place] [address] Electronically signed by Tahir Piedra 05-30-2007 07:40:06 AM documented in this encounter Plan of Treatment Not on filedocumented as of this encounter Visit Diagnoses Not on filedocumented in this encounter"
--- OUTSIDE RECORDS SUMMARY | ~2020-03-28 | XMS | Encounter Summary ---
Demographics + + + | Address | [address] | | | [place] [address] | + + + | Home Phone [...] [address], [place] | | | | | [address] | | + + + + + | Sergio Almita | FINN | [address] | | | | [address] | | | | | [address] | | + + + + + Care Team Providers + +------+ + | Care Supervisor Microwave Name | Role | Phone | + [...] as of this encounter Progress Notes Interface, School Psychometrist In - 07/31/2006 5:02 AM PSTCLINIC DATE: 03/06/1999 [facility] SUBJECTIVE: Tyron is a [...] RODRIGUEZ MD [address] [facility] [id number] signed by Interface, School Psychometrist In at 07/31/2006 5 :02 AM PSTdocumented in this encounter Plan of Treatment Not on filedocumented as of this encounter Visit Diagnoses Not on filedocumented in this encounter
--- OUTSIDE RECORDS SUMMARY | ~2020-03-28 | XMS | Encounter Summary ---
Demographics + + + | Address | [address] | | | [place] [address] | + + + | Home Phone [...] [address], [place] | | | | | [address] | | + + + + + | Sergio Almita | FINN | [address] | | | | [address] | | | | | [address] | | + + + + + Care Team Providers + +------+ + | Care Kitchen Steward Name | Role | Phone | + +------+ + | Floyd Mcgee MD | PCP | | + +------+ + Encounter Details +--------+ + + + + | Date | Type | Department | Care Team | Description | +--------+ + + + + | 06/02/ | Wine Steward/Stewardess | Pediatric | Tahir Piedra, | Congenital Stenosis | | 2006 | | Cardiology at | MD | of Aortic Valve | | | | [place] [address] | | (Primary Dx) | | | | [address] | | | | | | Pediatric | | | | | | [facility] | | | | | | [place], [place] | | | | | | [address] | | | | | | [phone] | | | +--------+ + + + [...]
--- OUTSIDE RECORDS SUMMARY | ~2020-03-28 | XMS | Encounter Summary ---
Demographics + + + | Address | [address] | | | [place] [address] | + + + | Home Phone | | + + + | Preferred Language | Unknown | + + + | Marital Status | Single | + + + | Episcopal Affiliation | PRO | + + + | Race | White | + + + | Ethnic Group | Not or | + + + Author + + + | Author | [facility] | + + + | Organization | [facility] | + + + | Address | Unknown | + + + | Phone | Unavailable | + + + Support + + + + + | Name | Relationship | Address | Phone | + + + + + | Candice Recio | FINN | [address] | | | | | [address], [place] | | | | | [address] | | + + + + + | Sergio Almita | FINN | [address] | | | | [address] | | | | | [address] | | + + + + + Care Team Providers + +------+ + | Care Model Technician Name | Role | Phone | [...] [id number] | | | | | | [place], [place] | | | | | | [address] | | | | | | [phone] | | | +--------+ + + + [...]
--- OUTSIDE RECORDS SUMMARY | ~2020-03-28 | XMS | Encounter Summary ---
Demographics + + + | Address | [address] | | | [place] [address] | + + + | Home Phone | | + + + | Preferred Language | Unknown | + + + | Marital Status | Single | + + + | Catholic Affiliation | PRO | + + [...] [address], [place] | | | | | [address] | | + + + + + | Sergio Almita | FINN | [address] | | | | [address] | | | | | [address] | | + + + + + Care Team Providers + +------+ + | Care International Broadcast Music Librarian Name | Role | Phone | [...] | | 2006 | Visit-Trans | [address] [facility] | [facility] | | | | imke | [address] | | | | | | [place], [place] | | | | | | [address] | | | +--------+ + + + [...] as of this encounter Progress Notes Interface, Recovery Coach In - 05/31/2007 2:26 AM [facility] [id number] [place]MITA AMARO [id number] Clinic Date: 05/27/2007 Clinic: [facility] The patient is a [...] Professor of Pediatrics Division of Pediatric Cardiology [facility] / [id number] / [id number] / [id number] / [phone] cc: Floyd Mcgee M.D. [address] [place] [address] Electronically signed by Tahir Piedra 05-30-2007 07:40:06 AM documented in this encounter Plan of Treatment Not on filedocumented as of this encounter Visit Diagnoses Not on filedocumented in this encounter"
--- OUTSIDE RECORDS SUMMARY | ~2020-03-28 | XMS | Encounter Summary ---
Demographics + + + | Address | [address] | | | [place] [address] | + + + | Home Phone [...] [address], [place] | | | | | [address] | | + + + + + | Sergio Almita | FINN | [address] | | | | [address] | | | | | [address] | | + + + + + Care Team Providers + +------+ + | Care Label Printing Machinist Name | Role | Phone | + [...] + + + | Closed | | Product Marketing Specialist | | [facility] | Ent | | | | | | Owen Rose, | [facility] | | | | | | MD [address] | | | | | [address] | [address] | | | | | | [place], [place] | Physician's | | | | | | [address] | Pavilion, | | | | | | | 2nd floor | | | | | | | [place], [place] | | | | | | | [address] | | | | | | | Phone: | | | | | | | [phone] | | | | | | | Fax: | | | | | | | [phone] | +--------+--------+ + + + + Encounter Details +--------+---------+ + + + | Date | Type | Department | Care Team | Description | +--------+---------+ + + + | 05/09/ | Office | Otolaryngology | [facility] | Sensorineural | | 2007 | Visit | Audiology Services | [address] | Hearing Loss, | | | | at [facility] [address] [place], | Bilateral (Primary | | | | [address] | [place] [address] | Dx) | | | | Physician's | | | | | | Pavilion, 2nd floor | | | | | | [place], [place] | | | | | | [address] | | | | | | [phone] | | | +--------+---------+ + + + [...] | + + +--------+ + + | WA TYMPANOMETRY | Procedures | Routin | Sensorineural | Ordered: 05/11/2008 | | | | e | Hearing Loss, | | | | | | Bilateral | | + + +--------+ + + | [place] EVOKED AUDITORY | Procedures | Routin | Sensorineural | Ordered: 05/11/2008 | | TEST,COMPREHSV | | e | Hearing Loss, | | | | | | Bilateral | | + + +--------+ + + | [place] COMPREHENSIVE | Procedures | Routin | Sensorineural [...]
--- OUTSIDE RECORDS SUMMARY | ~2020-03-28 | XMS | Encounter Summary ---
Demographics + + + | Address | [address] | | | [place] [address] | + + + | Home Phone [...] [address], [place] | | | | | [address] | | + + + + + | Sergio Almita | FINN | [address] | | | | [address] | | | | | [address] | | + + + + + Care Team Providers + +------+ + | Care Development Writer Name | Role | Phone | + [...] as of this encounter Progress Notes Interface, Paint Trimmer Pipe Bowls In - 07/01/2006 3:09 AM PSTCLINIC DATE: 03/05/2000 [facility] SUBJECTIVE: Tyron Recio is [...] 03/09/2000 cc: LATRICIA RODRIGUEZ MD [address] [facility] [address] [place] [id number] signed by Interface, Paint Trimmer Pipe Bowls In at 07/01/2006 3:09 AM PSTdocumented in this encounter Plan of Treatment Not on filedocumented as of this encounter Visit Diagnoses Not on filedocumented in this encounter"
--- OUTSIDE RECORDS SUMMARY | ~2020-03-28 | XMS | Encounter Summary ---
Demographics + + + | Address | [address] | | | [place] [address] | + + + | Home Phone [...] [address], [place] | | | | | [address] | | + + + + + | Sergio Almita | FINN | [address] | | | | [address] | | | | | [address] | | + + + + + Care Team Providers + +------+ + | Care Ibm Websphere Commerce Consultant Name | Role | Phone | + +------+ + | Floyd Mcgee MD | PCP | | + +------+ + Encounter Details +--------+ + + + + | Date | Type | Department | Care Team | Description | +--------+ + + + + | 06/02/ | Electronic Instrument Trades Worker | Pediatric | Tahir Piedra, | Congenital Stenosis | | 2006 | | Cardiology at | MD | of Aortic Valve | | | | [place] [address] | | (Primary Dx) | | | | [address] | | | | | | Pediatric | | | | | | [facility] | | | | | | [place], [place] | | | | | | [address] | | | | | | [phone] | | | +--------+ + + + [...]
--- OUTSIDE RECORDS SUMMARY | ~2020-03-28 | XMS | Encounter Summary ---
Demographics + + + | Address | [address] | | | [place] [address] | + + + | Home Phone [...] [address], [place] | | | | | [address] | | + + + + + | Sergio Almita | FINN | [address] | | | | [address] | | | | | [address] | | + + + + + Care Team Providers + +------+ + | Care Ornamental Metal Erector Name | Role | Phone | + +------+ + | Floyd Mcgee MD | PCP | | + +------+ + Encounter Details +--------+ + + + + | Date | Type | Department | Care Team | Description | +--------+ + + + + | 03/06/ | Procedure - | UNKNOWN DEPARTMENT | Other, Faculty | ECHO (MAGI or TTE) | | 1998 | | [address] [facility] | [phone] | | | | Transcribed | [address] | | | | | | [place], [place] | | | | | | [address] | | | +--------+ + + + [...] this encounter Progress Notes Other, Faculty - 03/06/1999 12:00 AM PDTAssociated Order(s): TRANSTHORACIC ECHOCARDIOGRAM, ADULT DATE: 03/06/99 MED REC NO: [id number] NAME: TYRON RECIO ECHOCARDIOGRAPHY REPORT BIRTHDATE: [birth year] CARDIAC QUERY: AORTIC STENOSIS UNIT: [facility] STUDY NO: [id number] TAPE NO. [id number] REF. : EVELIO--DCH7S BP: RA 106/64 FRAME NO. 1:14:57-1:25:14 TECH: HT: 140.97 CM WT: 30.90 M-MODE:MM 2-D MEASUREMENT LVID (D)42.5 (S)24.0 %FS 44 LA 24.0 IVS (D) 7.0 (S)10.0 AO 23.5 LVPW (D) 6.5 (S)10.5 DOPPLER:M/S PW CW MMHG PW CW MMHG RVIT 0.60 LVIT 0.80 RVOT 0.80 LVOT 1.00 MPA 0.80 ASAO AP 2.20 ASAO SSN 3.00 ASAO RPS 2.80 DSAO 1.80 2D & DOPPLER INTERPRETATION 1. BICUSPID AORTIC VALVE WITH MILD AORTIC STENOSIS. 2. MILD AORTIC INSUFFICIENCY. 3. LEFT VENTRICULAR SIZE AND FRACTIONAL SHORTENING NORMAL. MB SHARON CARDENAS M.D. SHARON SANCHEZ M.D. FELLOW PARTICIPATED IN REVIEW OF THIS STUDY WITH THE STAFF MARKETING REGIONAL CONSULTANT. documented in this encou nter Plan of Treatment Not on filedocumented as of this encounter Procedures + +--------+ + + + | Procedure Name | Priori | Date/Time | Associated Diagnosis | Comments | | | ty | | | | + +--------+ + + + | TRANSTHORACIC | | 03/06/1999 | | Results for this | | ECHOCARDIOGRAM, | | 12:00 AM | | procedure are in the | | ADULT | | PDT | | results section. | + +--------+ + + + documented in this encounter Results TRANSTHORACIC ECHOCARDIOGRAM, ADULT (03/06/1999 12:00 AM PDT) + + | Procedure Note | + + | Other, Faculty - 03/06/1999 12:00 AM PDT | | DATE: 03/06/99 | | MED REC NO: [id number] | | NAME: TYRON RECIO | | ECHOCARDIOGRAPHY REPORT BIRTHDATE: [birth year] | | | | CARDIAC QUERY: AORTIC STENOSIS | | UNIT: [place] | | STUDY NO: [id number] TAPE NO. [id number] REF. : EVELIO--DCH7S | | | | BP: RA 106/64 | | | | FRAME NO. 1:14:57-1:25:14 TECH: HT: 140.97 CM WT: 30.90 | | | | | | M-MODE:MM 2-D MEASUREMENT | | | | LVID (D)42.5 (S)24.0 %FS 44 LA 24.0 | | IVS (D) 7.0 (S)10.0 AO 23.5 | | LVPW (D) 6.5 (S)10.5 | | | | DOPPLER:M/S PW CW MMHG PW CW MMHG | | | | RVIT 0.60 LVIT 0.80 | | RVOT 0.80 LVOT 1.00 | | MPA 0.80 ASAO AP 2.20 | | ASAO SSN 3.00 | | ASAO RPS 2.80 | | DSAO 1.80 | | | | 2D & DOPPLER INTERPRETATION | | | | 1. BICUSPID AORTIC VALVE WITH MILD AORTIC STENOSIS. | | | | 2. MILD AORTIC INSUFFICIENCY. | | | | 3. LEFT VENTRICULAR SIZE AND FRACTIONAL SHORTENING NORMAL. | | | | | | MB | | | | SHARON CARDENAS M.D. | | SHARON SANCHEZ M.D. | | | | FELLOW PARTICIPATED IN REVIEW OF THIS STUDY WITH THE STAFF MARKETING REGIONAL CONSULTANT. | | | | | + + documented in this encounter Visit Diagnoses Not on filedocumented in this encounter"
--- OUTSIDE RECORDS SUMMARY | ~2020-03-28 | XMS | Encounter Summary ---
Demographics + + + | Address | [address] | | | [place] [address] | + + + | Home Phone | | + + + | Preferred Language | Unknown | + + + | Marital Status | Single | + + + | Restorationist Affiliation | PRO | + + + [...] [address], [place] | | | | | [address] | | + + + + + | Sergio Almita | FINN | [address] | | | | [address] | | | | | [address] | | + + + + + Care Team Providers + +------+ + | Care Communications Administrator Name | Role | Phone | [...] [id number] | | | | | | [place], [place] | | | | | | [address] | | | | | | [phone] | | | +--------+ + + + [...]
--- OUTSIDE RECORDS SUMMARY | ~2020-03-28 | XMS | Encounter Summary ---
Demographics + + + | Address | [address] | | | [place] [address] | + + + | Home Phone | | + + + | Preferred Language | Unknown | + + + | Marital Status | Single | + + + | Sikhism Affiliation | PRO | + + + | Race | White | + + + | Ethnic Group | Not or | + + + Author + + + | Author | [facility] | + + + | Organization | [facility] | + + + | Address | Unknown | + + + | Phone | Unavailable | + + + Support + + + + + | Name | Relationship | Address | Phone | + + + + + | Candice Recio | FINN | [address] | | | | | [address], [place] | | | | | [address] | | + + + + + | Sergio Almita | FINN | [address] | | | | [address] | | | | | [address] | | + + + + + Care Team Providers + +------+ + | Care Lead Applier Name | Role | Phone | + [...] | MD | | | | | [facility] [address] | | | | | | [address] | | | | | | Pediatric | | | | | | [facility] | | | | | | [place], [place] | | | | | | [address] | | | | | | [phone] | | | +--------+ + + + [...]
--- OUTSIDE RECORDS SUMMARY | ~2020-03-28 | XMS | Encounter Summary ---
Demographics + + + | Address | [address] | | | [place] [address] | + + + | Home Phone [...] [address], [place] | | | | | [address] | | + + + + + | Sergio Almita | FINN | [address] | | | | [address] | | | | | [address] | | + + + + + Care Team Providers + +------+ + | Care Nut Cracker Name | Role | Phone | + +------+ + | Floyd Rodriguez MD | PCP | | + +------+ + Encounter Details +--------+ + + + + | Date | Type | Department | Care Team | Description | +--------+ + + + + | 12/16/ | Transcribed | Allergy Clinic at | Dictation, Other | Transcribed | | 1995 | | [facility] [address] | | | | | | [address] | | | | | | [address] | | | | | | [facility], 7th floor | | | | | | [place], [place] | | | | | | [address] | | | | | | [phone] | | | +--------+ + + + [...] as of this encounter Progress Notes Interface, Juvenile Officer In - 11/12/2006 3:11 AM PDT [address], [address] [address] [phone] [facility] Pediatr December 17, 1995 SHERRIE RODRIGUEZ MD [address] [place] [address] [address] [place] [address] RE:Tyron Recio MR#:[id number] : [id number] [address] Doctor [...]
--- OUTSIDE RECORDS SUMMARY | ~2020-03-28 | XMS | Encounter Summary ---
Demographics + + + | Address | [address] | | | [place] [address] | + + + | Home Phone [...] [address], [place] | | | | | [address] | | + + + + + | Sergio Recio | ECON | [address] | | | | [address], [place] | | | | | [address] | | + + + + + Care Team Providers + +------+ + | Care Customer Acquisition Manager Name | Role | Phone | [...] as of this encounter Progress Notes Interface, Protector Plate Attacher In - 03/15/2005 11:11 AM PDT [id number] [facility]: [facility]: [facility] Tyron is now almost [...] Pediatric Cardiology [facility] / [id number] / [id number] / [id number] / cc: Floyd Mcgee M.D. [address] [address] Electronically signed by Tahir Piedra 12-25-2004 07:48:36 AM documented i n this encounter Plan of Treatment Not on filedocumented as of this encounter Visit Diagnoses Not on filedocumented in this encounter"
--- OUTSIDE RECORDS SUMMARY | ~2020-03-28 | XMS | Encounter Summary ---
Demographics + + + | Address | [address] | | | [place] [address] | + + + | Home Phone [...] Author + + + | Author | [facility] | + + + | Organization | [facility] | + + + | Address | Unknown | + + + | Phone | Unavailable | + + + Support + + + + + | Name | Relationship | Address | Phone | + + + + + | Candice Recio | FINN | [address] | | | | | [address], [place] | | | | | [address] | | + + + + + | Sergio Almita | FINN | [address] | | | | [address] | | | | | [address] | | + + + + + Care Team Providers + +------+ + | Care Wound Care Physician Name | Role | Phone | + [...] TTE) | | 1998 | | [address] [facility] | [phone] | | | | Transcribed | Domingo [address] | | | | | | [place], [place] | | | | | | [address] | | | +--------+ + + + [...] ECHOCARDIOGRAM, ADULT DATE: 03/06/99 MED REC NO: [id number] NAME: TYRON RECIO ECHOCARDIOGRAPHY REPORT BIRTHDATE: [birth year] CARDIAC QUERY: AORTIC STENOSIS UNIT: [facility] STUDY NO: [id number] TAPE NO. [id number] REF. [...] REVIEW OF THIS STUDY WITH THE STAFF PROSTHETIST. documented in this encou nter Plan of [...] DATE: 03/06/99 | | MED REC NO: [id number] | | NAME: TYRON RECIO | | [...] REVIEW OF THIS STUDY WITH THE STAFF PROSTHETIST. | | | | | + + documented in this encounter Visit Diagnoses Not on filedocumented in this encounter"
--- OUTSIDE RECORDS SUMMARY | ~2020-03-28 | XMS | Encounter Summary ---
Demographics + + + | Address | [address] | | | [place] [address] | + + + | Home Phone | | + + + | Preferred Language | Unknown | + + + | Marital Status | Single | + + + | Voodoo Affiliation | PRO | + + + [...] [address], [place] | | | | | [address] | | + + + + + | Sergio Recio | ECON | [address] | | | | [address], [place] | | | | | [address] | | + + + + + Care Team Providers + +------+ + | Care Blast Furnace Supervisor Name | Role | Phone | [...]
--- OUTSIDE RECORDS SUMMARY | ~2020-03-28 | XMS | Encounter Summary ---
Demographics + + + | Address | [address] | | | [place] [address] | + + + | Home Phone [...] [address], [place] | | | | | [address] | | + + + + + | Sergio Almita | FINN | [address] | | | | [address] [place] | | | | | [address] | | + + + + + Care Team Providers + +------+ + | Care Vice President Client Services Name | Role | Phone | + +------+ + | Floyd Mcgee MD | PCP | | + +------+ + Encounter Details +--------+ + + + + | Date | Type | Department | Care Team | Description | +--------+ + + + + | 12/28/ | Results | [facility] [address] | Tahir Piedra, | | | 2005 | Only | Floor [address] | [place] | | | | | Mailcode: [facility] | | | | | | [facility] [place], [place] | | | | | | [address] | | | | | | [phone] | | | +--------+ + + + [...]
--- OUTSIDE RECORDS SUMMARY | ~2020-03-28 | XMS | Encounter Summary ---
Demographics + + + | Address | [address] | | | [place] [address] | + + + | Home Phone [...] [address], [place] | | | | | [address] | | + + + + + | Sergio Almita | FINN | [address] | | | | [address] [place] | | | | | [address] | | + + + + + Care Team Providers + +------+ + | Care Community Worker Name | Role | Phone | + +------+ + | Floyd Mcgee MD | PCP | | + +------+ + Encounter Details +--------+ + + + + | Date | Type | Department | Care Team | Description | +--------+ + + + + | 12/28/ | Results | [facility] [address] | Tah[place] Piedra, | | | 2005 | Only | Floor [address] | [place] | | | | | Mailcode: [facility] | | | | | | [facility] [place], [place] | | | | | | [address] | | | | | | [phone] | | | +--------+ + + + [...]
--- OUTSIDE RECORDS SUMMARY | ~2020-03-28 | XMS | Encounter Summary ---
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 [address] [facility] [address] [place] [address] Electronically signed by Tahir Piedra 06-07-2006 07:42:04 AM documented i n this encounter Plan of Treatment Not on filedocumented as of this encounter Visit Diagnoses Not on filedocumented in this encounter"
--- OUTSIDE RECORDS SUMMARY | ~2020-03-28 | XMS | Encounter Summary ---
Demographics + + + | Address | [address] | | | [place] [address] | + + + | Home Phone [...] [address], [place] | | | | | [address] | | + + + + + | Sergio Almita | FINN | [address] | | | | [address] | | | | | [address] | | + + + + + Care Team Providers + +------+ + | Care Competitive Intelligence Analyst Name | Role | Phone | [...] TTE) | | 2001 | | [address] [facility] | [phone] | | | | Transcribed | Domingo [address]cca | | | | | | [place], [place] | | | | | | [address] | | | +--------+ + + + [...] 12:00 AM PDTAssociated Order(s): TRANSTHORACIC ECHOCARDIOGRAM, ADULT [facility] DATE: 06/09/02 [place], [place] MED REC NO: [id number] NAME: DIPAKMarcellusTYRON ECHOCARDIOGRAPHY REPORT BIRTHDATE: [birth year] INDICATION [...] Other, Faculty - 06/09/2002 12:00 AM PDT [facility] DATE: | | 06/09/02 [place], [place] MED REC NO: [id number] NAME: TYRON RECIO | | ECHOCARDIOGRAPHY REPORT [...]
--- OUTSIDE RECORDS SUMMARY | ~2020-03-28 | XMS | Encounter Summary ---
Demographics + + + | Address | [address] | | | [place] [address] | + + + | Home Phone [...] Author + + + | Author | [facility] | + + + | Organization | [facility] | + + + | Address | Unknown | + + + | Phone | Unavailable | + + + Support + + + + + | Name | Relationship | Address | Phone | + + + + + | Candice Recio | FINN | [address] | | | | | [address], [place] | | | | | [address] | | + + + + + | Sergio Almita | FINN | [address] | | | | [address] | | | | | [address] | | + + + + + Care Team Providers + +------+ + | Care Emergency Department Aide Name | Role | Phone | [...] as of this encounter Progress Notes Interface, Client Development Director In - 08/31/2006 3:06 AM PST CLINIC DATE: 03/07/98 [facility] SUBJECTIVE: Tyron is a 12-year-old with aortic [...] COATS MD [address] [place] [address] documented in this encounter Plan of Treatment Not on filedocumented as of this encounter Visit Diagnoses Not on filedocumented in this encounter"
--- OUTSIDE RECORDS SUMMARY | ~2020-03-28 | XMS | Encounter Summary ---
Demographics + + + | Address | [address] | | | [place] [address] | + + + | Home Phone [...] [address], [place] | | | | | [address] | | + + + + + | Sergio Almita | FINN | [address] | | | | [address] | | | | | [address] | | + + + + + Care Team Providers + +------+ + | Care Firebrick Layer Helper Name | Role | Phone | + [...] as of this encounter Progress Notes Interface, Veneer Grader In - 03/21/2006 3:10 AM PDTCLINIC DATE: 06/09/2002 [facility] SUBJECTIVE: Tyron is [...] R: 06/12/2002 cc: LATRICIA RODRIGUEZ MD [address] [facility] [address] [place] [id number] signed by Interface, Veneer Grader In at 03/21/2006 3:10 AM PDTdocumented in this encounter Plan of Treatment Not on filedocumented as of this encounter Visit Diagnoses Not on filedocumented in this encounter"
--- OUTSIDE RECORDS SUMMARY | ~2020-03-28 | XMS | Encounter Summary ---
Demographics + + + | Address | [address] | | | [place] [address] | + + + | Home Phone | | + + + | Preferred Language | Unknown | + + + | Marital Status | Single | + + + | Evangelical Affiliation | PRO | + + + [...] [address], [place] | | | | | [address] | | + + + + + | Sergio Recio | ECON | [address] | | | | [address], [place] | | | | | [address] | | + + + + + Care Team Providers + +------+ + | Care Sweet Dough Mixer Name | Role | Phone | [...] as of this encounter Progress Notes Interface, Credit Collection Associate In - 03/15/2005 11:11 AM PDT [id number] [facility]: [facility] Tyron is now almost [...] 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 [address] [address] Electronically signed by Tahir Piedra 12-25-2004 07:48:36 AM documented i n this encounter Plan of Treatment Not on filedocumented as of this encounter Visit Diagnoses Not on filedocumented in this encounter"
--- OUTSIDE RECORDS SUMMARY | ~2020-03-28 | XMS | Encounter Summary ---
Demographics + + + | Address | [address] | | | [place] [address] | + + + | Home Phone [...] [address], [place] | | | | | [address] | | + + + + + | Sergio Almita | FINN | [address] | | | | [address] | | | | | [address] | | + + + + + Care Team Providers + +------+ + | Care Grades 1 Through 5 Teacher Name | Role | Phone | [...] as of this encounter Progress Notes Interface, Oyster Culturist In - 07/31/2006 5:02 AM PSTCLINIC DATE: 03/06/1999 [facility] SUBJECTIVE: Tyron is a [...] RODRIGUEZ MD [address] [facility] [id number] signed by Interface, Oyster Culturist In at 07/31/2006 5 :02 AM PSTdocumented in this encounter Plan of Treatment Not on filedocumented as of this encounter Visit Diagnoses Not on filedocumented in this encounter
--- OUTSIDE RECORDS SUMMARY | ~2020-03-28 | XMS | Encounter Summary ---
Demographics + + + | Address | [address] | | | [place] [address] | + + + | Home Phone [...] [address], [place] | | | | | [address] | | + + + + + | Sergio Almita | FINN | [address] | | | | [address] | | | | | [address] | | + + + + + Care Team Providers + +------+ + | Care Racking Technician Name | Role | Phone | [...] TTE) | | 2001 | | [address] [facility] | [phone] | | | | Transcribed | Domingo [address]cca | | | | | | [place], [place] | | | | | | [address] | | | +--------+ + + + [...] 12:00 AM PDTAssociated Order(s): TRANSTHORACIC ECHOCARDIOGRAM, ADULT [facility] DATE: 06/09/02 [place], [place] MED REC NO: [id number] NAME: DIPAKMarcellusTYRON ECHOCARDIOGRAPHY REPORT BIRTHDATE: [birth year] INDICATION [...] Other, Faculty - 06/09/2002 12:00 AM PDT [facility] DATE: | | 06/09/02 [place], [place] MED REC NO: [id number] NAME: TYRON RECIO | | ECHOCARDIOGRAPHY REPORT [...]
--- OUTSIDE RECORDS SUMMARY | ~2020-03-28 | XMS | Encounter Summary ---
Demographics + + + | Address | [address] | | | [place] [address] | + + + | Home Phone | | + + + | Preferred Language | Unknown | + + + | Marital Status | Single | + + + | Latter-Day Affiliation | PRO | + + + | Race | White | + + + | Ethnic Group | Not or | + + + Author + + + | Author | [facility] | + + + | Organization | [facility] | + + + | Address | Unknown | + + + | Phone | Unavailable | + + + Support + + + + + | Name | Relationship | Address | Phone | + + + + + | Candice Recio | FINN | [address] | | | | | [address], [place] | | | | | [address] | | + + + + + | Sergio Almita | FINN | [address] | | | | [address] | | | | | [address] | | + + + + + Care Team Providers + +------+ + | Care Filter Changing Technician Name | Role | Phone | + +------+ + | Floyd Rodriguez MD | PCP | | + +------+ + Encounter Details +--------+ + + + + | Date | Type | Department | Care Team | Description | +--------+ + + + + | 12/16/ | Transcribed | All[facility] Clinic at | Dictation, Other | Transcribed | | 1995 | | [facility] [address] | | | | | | [address] | | | | | | [address] | | | | | | [facility], 7th floor | | | | | | [place], [place] | | | | | | [address] | | | | | | [phone] | | | +--------+ + + + [...] as of this encounter Progress Notes Interface, Charter Coordinator In - 11/12/2006 3:11 AM PDT [address], [address] [address] [phone] [facility] Pediatr December 17, 1995 SHERRIE RODRIGUEZ MD [address] [place] [address] [address] [place] [address] RE:Tyron Recio MR#:[id number] : [id number] Dear Doctor [...]
--- OUTSIDE RECORDS SUMMARY | ~2020-03-28 | XMS | Clinical Summary ---
Demographics + + + | Address | [address] | | | [place] [address] | + + + | Home Phone | | + + + | Preferred Language | Unknown | + + + | Marital Status | Single | + + + | Judaism Affiliation | PRO | + + + [...] [address], [place] | | | | | [address] | | + + + + + | Sergio Recio | ECON | [address] + | | | | [address], [place] | | | | | [address] | | + + + + + Care Team Providers + +------+ + | Care Hand Stripper Name | Role | Phone | + +------+ + | Floyd Mcgee MD | PCP | | + +------+ + Source Comments OSWALDO is fully live on both [facility] and [facility] Allergies + + + + [...] Patient | Explanation | | | | Body Worker | | + + + + + | Advance | | | | | Directives and | | | | | Living Will | | | | + + + + + | Power of | | | | | Staff Interpreter | | | | + + + [...]
--- OUTSIDE RECORDS SUMMARY | ~2020-03-28 | XMS | Encounter Summary ---
Demographics + + + | Address | [address] | | | [place] [address] | + + + | Home Phone [...] [address], [place] | | | | | [address] | | + + + + + | Sergio Almita | FINN | [address] | | | | [address] | | | | | [address] | | + + + + + Care Team Providers + +------+ + | Care Refrigerating Machine Operator Name | Role | Phone [...] as of this encounter Progress Notes Interface, Control Specialist In - 07/01/2006 3:09 AM PSTCLINIC DATE: 03/05/2000 [facility] SUBJECTIVE: Tyron Recio is [...] 03/09/2000 cc: LATRICIA RODRIGUEZ MD [address] [facility] [address] [place] [id number] signed by Interface, Control Specialist In at 07/01/2006 3:09 AM PSTdocumented in this encounter Plan of Treatment Not on filedocumented as of this encounter Visit Diagnoses Not on filedocumented in this encounter"
--- OUTSIDE RECORDS SUMMARY | 2020-03-28 12:26 | XMS ---
PreManage Notification: SONDRA EMMANUEL Security Fitting Room Supervisor Events No recent Security Events currently on file CRITERIA MET - [facility] - Has Care Guidelines - PDMP CARE PROVIDERS AGUSTINA OSEI Family Medicine 12/04/2019-Current PHONE: [phone] Name Unknown Clinic/Center: Primary Care 12/04/2019-Current PHONE: [phone] Makeda has no Care Guidelines for this patient. Care History Medical/Surgical 12/04/2019 [facility] - PATIENT WAS LAST SEEN BY [facility] -PCP OFFICE ON 2019 [place] VISIT COUNT (12 MO.) 3 [facility] TOTAL 3 NOTE: Visits indicate total known visits. 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 [place] TYPE: Emergency COMPLAINT: - POSS ABSCESS DIAGNOSES: - Nicotine dependence, unspecified, uncomplicated - Cutaneous abscess of groin - Unilateral inguinal hernia, without obstruction or gangrene, - Cutaneous abscess of groin INPATIENT VISIT TRACKING (12 MO.) No inpatient visits to display in this time frame [email or web address]
[2020-03-28] MEDS ORDERED: PREDNISONE20 MG PO (12:57)
[2020-03-28] MEDS ORDERED: ANTI-ITCH28 G2 TOP (12:57)
[2020-03-28] MEDS ORDERED: VISTARIL25 MG PO (12:57)
== END 2020-03-28 13:03 | disposition home or self-care (01) ==
LOC: ED 12:23
DX: L25.4 Unspecified contact dermatitis due to food in contact with skin (principal); F17.200 Nicotine dependence, unspecified, uncomplicated
CPT/HCPCS: 99283

== ENCOUNTER 2021-04-03 11:27 | Emergency (ER) | payer OTHER ==
[~2021-04-03] VITALS: Ht 182.9 cm; Wt 68.0 kg
[~2021-04-03 11:27] MED LIST changes: +ANTI-ITCH28 G2 TOP; +PREDNISONE20 MG PO; +VISTARIL25 MG PO
--- OUTSIDE RECORDS SUMMARY | 2021-04-03 11:36 | XMS ---
PreManage Notification: SONDRA EMMANUEL Security Electron Beam Welding Machine Operator Events No recent Security Events currently on file CRITERIA MET - [facility] - Has Care Guidelines CARE PROVIDERS AGUSTINA OSEI [facility] 12/04/2019-Current PHONE: [phone] [facility] Care 12/04/2019-[facility] PHONE: [phone] Makeda has no Care Guidelines for this patient. Care History Medical/Surgical 12/04/2019 [facility] - PATIENT WAS LAST SEEN BY [facility] -PCP OFFICE ON 2019 E.DSabas VISIT COUNT (12 MO.) [address] [place] [address] TOTAL 1 NOTE: Visits indicate total known visits. ED/UCC VISIT TRACKING (12 MO.) 04/03/2021 11:28 [facility] [place] TYPE: Emergency COMPLAINT: - URINATION PROBLEM INPATIENT VISIT TRACKING (12 MO.) No inpatient visits to display in this time frame [email or web address]
[2021-04-03] MEDS ORDERED: TEMOVATE15 GM TOP (13:55)
== END 2021-04-03 14:08 | disposition home or self-care (01) ==
LOC: ED 11:27
DX: N99.110 Postprocedural urethral stricture, male, meatal (principal); F17.200 Nicotine dependence, unspecified, uncomplicated
CPT/HCPCS: 51702; 99283-25

== ENCOUNTER 2021-12-08 09:12 | Emergency (ER) | payer OTHER ==
[~2021-12-08] VITALS: Ht 182.9 cm; Wt 68.0 kg
[~2021-12-08 09:12] MED LIST changes: +TEMOVATE15 GM TOP
== END 2021-12-08 09:45 | disposition home or self-care (01) ==
LOC: ED 09:12
DX: T83.091A Other mechanical complication of indwelling urethral catheter, initial encounter (principal); F17.200 Nicotine dependence, unspecified, uncomplicated; Z79.899 Other long term (current) drug therapy
CPT/HCPCS: 51701; 99283-25

== ENCOUNTER 2022-01-04 09:18 | Emergency (ER) | payer OTHER ==
[~2022-01-04] VITALS: Ht 182.9 cm; Wt 68.0 kg
--- OUTSIDE RECORDS SUMMARY | 2022-01-04 09:24 | XMS ---
PreManage Notification: SONDRA EMMANUEL Security Motor And Generator Brush Maker Events No recent Security Events currently on file CRITERIA MET - [facility] - 2 Visits in 30 Days CARE PROVIDERS AGUSTINA OSEI [facility] 12/04/2019-Current PHONE: Unknown [facility]: Primary Care 12/04/2019-[facility] PHONE: [phone] Makeda has no Care Guidelines for this patient. Care History Medical/Surgical 12/04/2019 [facility] - PATIENT WAS LAST SEEN BY [facility] -PCP OFFICE ON 2019 E[place] VISIT COUNT (12 MO.) 3 [facility] TOTAL 3 NOTE: Visits indicate total known visits. ED/UCC VISIT TRACKING (12 MO.) 01/04/2022 09:18 [facility] [place] TYPE: Emergency COMPLAINT: - NECK PAIN 12/08/2021 09:13 [facility] TYPE: Emergency COMPLAINT: - CATHETER ISSUE DIAGNOSES: - Other mechanical complication of indwelling urethral catheter, initial encounter - Other half-way (current) drug therapy - Nicotine dependence, unspecified, uncomplicated 04/03/2021 11:28 [facility] [place] TYPE: Emergency COMPLAINT: - URINATION PROBLEM DIAGNOSES: - Postprocedural urethral stricture, male, meatal - Nicotine dependence, unspecified, uncomplicated INPATIENT VISIT TRACKING (12 MO.) No inpatient visits to display in this time frame [email or web address]
== END 2022-01-04 10:18 | disposition home or self-care (01) ==
LOC: ED 09:18
DX: S13.9XXA Sprain of joints and ligaments of unspecified parts of neck, initial encounter (principal); X58.XXXA Exposure to other specified factors, initial encounter; F17.200 Nicotine dependence, unspecified, uncomplicated
CPT/HCPCS: 72040; 99283-25

== ENCOUNTER 2022-09-11 14:23 | Emergency (ER) | payer OTHER ==
[~2022-09-11] VITALS: Ht 182.9 cm; Wt 70.3 kg
== END 2022-09-11 17:07 | disposition home or self-care (01) ==
LOC: ED 14:23
PROC: 2W3EX1Z Immobilization of Right Hand using Splint (ICD-10-PCS; principal; 2022-09-11)
DX: S69.91XA Unspecified injury of right wrist, hand and finger(s), initial encounter (principal); F17.200 Nicotine dependence, unspecified, uncomplicated; Y04.2XXA Assault by strike against or bumped into by another person, initial encounter
CPT/HCPCS: 29125; 73130; 99283-25

== ENCOUNTER 2022-09-21 08:51 | Emergency (ER) | payer OTHER ==
[~2022-09-21] VITALS: Ht 182.9 cm; Wt 70.3 kg
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
[2022-09-21] MEDS ORDERED: AMOXICILLIN500 MG PO (12:35)
== END 2022-09-21 12:56 | disposition home or self-care (01) ==
LOC: ED 08:51
DX: K02.9 Dental caries, unspecified (principal); R11.2 Nausea with vomiting, unspecified; F17.200 Nicotine dependence, unspecified, uncomplicated
CPT/HCPCS: 36415; 80048; 85025; 96361; 96374; 99283-25; J1790; J7121

== ENCOUNTER 2022-11-12 09:36 | Emergency (ER) | payer OTHER ==
[~2022-11-12] VITALS: Ht 182.9 cm; Wt 70.3 kg
[2022-11-12] MEDS ORDERED: GABAPENTIN100 MG PO (11:03)
[2022-11-12] MEDS ORDERED: IBU600 MG PO (11:03)
== END 2022-11-12 11:25 | disposition home or self-care (01) ==
LOC: ED 09:36
DX: S86.912A Strain of unspecified muscle(s) and tendon(s) at lower leg level, left leg, initial encounter (principal); X50.1XXA Overexertion from prolonged static or awkward postures, initial encounter; F17.200 Nicotine dependence, unspecified, uncomplicated
CPT/HCPCS: 99283; A9270